=== PATIENT | male | born 1960 | race Caucasian/White ===

== ENCOUNTER → 2017-09-10 11:01 | Outpatient (POV) | payer MEDICARE, SELFPAY ==
[2017-09-10 11:31] VITALS: BP 125/78; PULSE 66; RESP 18; O2SAT 98
--- NOTE | 2017-09-10 11:49 | HMH.PMCON ---
Assessment and Plan (1) Sacroiliitis Current visit: Yes Status: Chronic Category: Medical Code(s): M46.1 - Sacroiliitis, not elsewhere classified - Assessment and plan all Dx Assessment and Plan for all problems:: We will plan bilateral SI joint injections for this patient. Patient has had 80% relief for the 6 months with his previous injections. Patient's tried and failed physical therapy, anti-inflammatories, medications. I will follow-up with this patient after his injection and we will reassess his symptoms at that time. This note was dictated using voice recognition software and may contain errors or omissions HPI - Data of Consult Consult date: 09/10/17 Requesting Physician: Belkis Montano APRN Primary Care Provider: Garo Avelar MD Family Provider: Garo Avelar MD - Consult Narrative Reason for consult: Bilateral SI joint pain History of present illness: Mr. Montgomery is a 57 year old male presents today for consultation in regards to his bilateral SI joint pain. Patient has been receiving SI joint injections with significant relief in the past. Patient recently moved here from [place]. In his last injection he got 80-90% relief of his symptoms for 6 months. Patient rates his pain a 5 out of 10 today. Patient is currently on anti-inflammatory therapy. Patient has tried and failed chiropractic therapy, physical therapy, massage therapy. Patient does have some difficulty sleeping due to pain. Patient is not on any anticoagulation therapy. Patient is interested in moving forward with injective therapy to increase his functionality. CC: Belkis Montano APRN [facility] History I have reviewed the patient's past medical history: Yes Medical History: Reports:: Myocardial Infarction Denies:: Diabetes Mellitus Type 1, Diabetes Mellitus Type 2 Other Medical History: Reports: Arthritis - *Social History Alcohol Intake: never Occupational Status: other Housing: house - Psychiatric History Expresses thoughts of harming self/others: None Suicide Plan Description: No Plan *Family Hx:: Unable to obtain Review of Systems - Review of Systems ROS General: no recent weight change, no fever, no sleep disturbances Respiratory: no cough, no shortness of air, no recurring pulmonary infections Cardiovascular/Peripheral Vascular: No chest pain, No palpitations, no edema, no shortness of breath. Gastrointestinal: no incontinence, normal bowel movements reported Genitourinary: no incontinence Musculoskeletal: Bilateral SI joint pain Psychiatric: normal mood/ affect Neurological: Weakness in bilateral lower extremities at times, [denies balance issues] Meds Home Medications Medication Instructions Recorded Confirmed Type apixaban 5 mg tablet 5 mg PO BID 09/09/17 History aspirin 81 mg tablet,delayed 81 mg PO DAILY tab 09/09/17 History release carvedilol 6.25 mg tablet 6.25 mg PO BID 09/09/17 History celecoxib 200 mg capsule 200 mg PO BID 09/09/17 History colchicine 0.6 mg tablet 0.6 mg PO BID 09/09/17 History lisinopril 20 1 tab PO BID tab 09/09/17 History mg-hydrochlorothiazide 12.5 mg tablet pantoprazole 40 mg tablet,delayed 40 mg PO DAILY tab 09/09/17 History release rosuvastatin 20 mg tablet 20 mg PO DAILY tab 09/09/17 History tramadol 50 mg tablet 50 mg PO TID PRN tab 09/09/17 History Allergies Allergy/AdvReac Type Severity Reaction Status Date / Time acetaminophen [From Tylenol] Allergy Mild Verified 09/09/17 14:31 Objective Vital signs: Pulse Resp BP Pulse Ox 66 18 125/78 98 09/10/17 11:31 09/10/17 11:31 09/10/17 11:31 09/10/17 11:31 Narrative: Physical Exam General: Alert and oriented x3, no acute distress, pleasant and cooperative, [on room air] Lungs: Resps E/U, Symmetrical chest expansion, Eyes: PERRL Musculoskeletal: Flexion and extension of lumbar spine somewhat guarded secondary to pain, de
--- NOTE | 2017-09-10 11:52 | P.CONS_ITS ---
Assessment and Plan (1) Sacroiliitis Current visit: Yes Status: Chronic Category: Medical Code(s): M46.1 - Sacroiliitis, not elsewhere classified - Assessment and plan all Dx Assessment and Plan for all problems:: We will plan bilateral SI joint injections for this patient. Patient has had 80 % relief for the 6 months with his previous injections. Patient's tried and failed physical therapy, anti-inflammatories, medications. I will follow-up with this patient after his injection and we will reassess his symptoms at that time. This note was dictated using voice recognition software and may contain errors or omissions HPI - Data of Consult Consult date: 09/10/17 Requesting Physician: Belkis Montano APRN Primary Care Provider: Garo Avelar MD Family Provider: Garo Avelar MD - Consult Narrative Reason for consult: Bilateral SI joint pain History of present illness: Mr. Montgomery is a 57 year old male presents today for consultation in regards to his bilateral SI joint pain. Patient has been receiving SI joint injections with significant relief in the past. Patient recently moved here from [place]. In his last injection he got 80-90% relief of his symptoms for 6 months. Patient rates his pain a 5 out of 10 today. Patient is currently on anti- inflammatory therapy. Patient has tried and failed chiropractic therapy, physical therapy, massage therapy. Patient does have some difficulty sleeping due to pain. Patient is not on any anticoagulation therapy. Patient is interested in moving forward with injective therapy to increase his functionality. CC: Belkis Montano APRN [facility] History I have reviewed the patient's past medical history: Yes Medical History: Reports:: Myocardial Infarction Denies:: Diabetes Mellitus Type 1, Diabetes Mellitus Type 2 Other Medical History: Reports: Arthritis - *Social History Alcohol Intake: never Occupational Status: other Housing: house - Psychiatric History Expresses thoughts of harming self/others: None Suicide Plan Description: No Plan *Family Hx:: Unable to obtain Review of Systems - Review of Systems ROS General: no recent weight change, no fever, no sleep disturbances Respiratory: no cough, no shortness of air, no recurring pulmonary infections Cardiovascular/Peripheral Vascular: No chest pain, No palpitations, no edema, no shortness of breath. Gastrointestinal: no incontinence, normal bowel movements reported Genitourinary: no incontinence Musculoskeletal: Bilateral SI joint pain Psychiatric: normal mood/ affect Neurological: Weakness in bilateral lower extremities at times, [denies balance issues] Meds Home Medications Medication Instructions Recorded Confirmed Type apixaban 5 mg tablet 5 mg PO BID 09/09/17 History aspirin 81 mg tablet,delayed 81 mg PO DAILY tab 09/09/17 History release carvedilol 6.25 mg tablet 6.25 mg PO BID 09/09/17 History celecoxib 200 mg capsule 200 mg PO BID 09/09/17 History colchicine 0.6 mg tablet 0.6 mg PO BID 09/09/17 History lisinopril 20 1 tab PO BID tab 09/09/17 History mg-hydrochlorothiazide 12.5 mg tablet pantoprazole 40 mg tablet,delayed 40 mg PO DAILY tab 09/09/17 History release rosuvastatin 20 mg tablet 20 mg PO DAILY tab 09/09/17 History tramadol 50 mg tablet 50 mg PO TID PRN tab 09/09/17 History Allergies
== END ==
PROVIDERS: PCP Internal Medicine Adolescent Medicine; Visit Provider Clinical Nurse Specialist Family Health
DX: M46.1 Sacroiliitis, not elsewhere classified (principal)
CPT/HCPCS: 99202

== ENCOUNTER → 2017-11-11 12:49 | Outpatient (POV) | payer MEDICARE, SELFPAY ==
[2017-11-11 12:58] VITALS: BP 144/93; PULSE 63; RESP 18; O2SAT 98; BMI 35.9
--- NOTE | 2017-11-12 11:45 | HMH.PAINSOAP ---
[facility] Pain Management SOAP Note Subjective:: This patient is a pleasant 57-year-old white male who presents today for follow-up after bilateral SI joint injections. Patient states he did not get much relief from this. Patient has been seen by pain management in [place] in the past and had what sounds like an SI joint injection however he is unsure what it was called. Patient states he had 5 months relief with this. I have been trying to get information in regards to the patient's plan of care treatment in [place] however have been unable to receive the records. We will try to do this again. Patient rates his pain a 6 out of 10 today mostly in his low back and over his SI joints. ROS General: no recent weight change, no fever, no sleep disturbances Respiratory: no cough, no shortness of air, no recurring pulmonary infections Cardiovascular/Peripheral Vascular: No chest pain, No palpitations, no edema, no shortness of breath. Gastrointestinal: no incontinence, normal bowel movements reported Genitourinary: no incontinence Musculoskeletal: SI joint pain Psychiatric: normal mood/ affect Neurological: [denies weakness in extremities], [denies balance issues] Objective:: Physical Exam General: Alert and oriented x3, no acute distress, pleasant and cooperative, [on room air] Lungs: Resps E/U, Symmetrical chest expansion, Eyes: PERRL Musculoskeletal: Flexion and extension of lumbar spine somewhat guarded secondary to pain, deep tendon reflexes normal, strength in upper and lower extremities [5/5], slightly antalgic gait noted, positive Rachele's test bilaterally, SI joint tenderness bilaterally Neurological: speech clear, ssis etl developer equal, no gross sensory deficits Assessment:: Sacroiliitis Plan:: We will try again to obtain the records from his previous clinic. We will determine what kind of procedure he had prior and we will order this for him. I will follow-up with the patient once we get these records. This note was dictated using voice recognition software and may contain errors or omissions
== END ==
PROVIDERS: PCP Internal Medicine Adolescent Medicine; Visit Provider Clinical Nurse Specialist Family Health
DX: M46.1 Sacroiliitis, not elsewhere classified (principal)
CPT/HCPCS: 99212

== ENCOUNTER → 2017-12-16 13:52 | Outpatient (CLI) | payer MEDICARE, SELFPAY ==
[2017-12-16 14:23] LABS: Blood Urea Nitrogen 20 mg/dL (7-18); Creatinine,Serum 1.33 mg/dL (0.70-1.30); Estimated Glomerular Filt Rate 55 ml/min (>60); GFR (African American) 67 ML/MIN (>60)
--- NOTE | 2017-12-16 14:28 | CT_ITS ---
CT abdomen pelvis w con INDICATION: Abdominal pain ITS.REASON: DIVERTICULITIS ORDERING PHYSICIAN: Ryan Meraz MD PATIENT AGE: 57 years COMPARISON: CT abdomen pelvis 10/02/2017 . TECHNIQUE: 75 cc of Isovue-370 intravenous given. But no oral contrast. Axial images obtained with sagittal and coronal reformats. All CT scans at the facility use one or more dose reduction, viz: automated exposure control, ma/kV adjustment per patient size (including targeted exams where dose is matched to indication, i.e. head), or iterative reconstruction technique. FINDINGS: Lung bases. No active disease. Stable tiny less than 3 mm pleural-based nodule at the left lower lobe axial slice 11. Question partially and suspect for tiny developing granuloma. Favor benign. Liver, spleen, pancreas unremarkable. Gallbladder is been removed. No biliary ductal dilatation. .. Adrenals normal. Kidneys. Mild stranding about both kidneys similar to previous study. Reflecting mild chronic changes. No renal calculi or obstruction. Ureters normal course and caliber with the left ureter is slightly more generous than the right. Pelvis. Urinary bladder unremarkable. Prostate modest size. No pelvic adenopathy or mass. GI tract. Minimal Diverticulosis is seen at the sigmoid and left colon.. No diverticulitis. Moderate stool at transverse colon & right colon. Terminal ileum appears normal. Only a small stump of appendix evident. No appendicitis. No free fluid in the abdomen or pelvis. No free air. Small bowel normal caliber. Stomach upper normal wall thickness. Here and at GE junction, lower esophagus. T IMPRESSION.......... No acute findings in the abdomen or pelvis No urinary tract structures are calculi. Minimal diverticulosis at the sigmoid and left colon but no good evidence of diverticulitis....
== END ==
PROVIDERS: PCP Internal Medicine Adolescent Medicine; Visit Provider Internal Medicine Adolescent Medicine
DX: K57.92 Diverticulitis of intestine, part unspecified, without perforation or abscess without bleeding (principal)
CPT/HCPCS: 36415; 74177; 82565; 84520; Q9967

== ENCOUNTER → 2017-12-23 09:26 | Outpatient (CLI) | payer MEDICARE, SELFPAY ==
--- NOTE | 2017-12-23 09:31 | MR_ITS ---
MR lumbar spine wo con, MR 3-d myelogram HISTORY: Low Back Pain, Bilateral Hip Pain, Bilateral leg numbness and tingling. PT States he feels unstable in legs. ITS.REASON: ACUTE BILATERAL LOW BACK PAIN, WITH SCIATICA PRESENCE ORDERING PHYSICIAN: Ryan Meraz MD PATIENT AGE: 57 years Comparison: None TECHNIQUE: Standard multiplanar multiecho sequences are performed without contrast. 3-D MIP and myelographic images are also rendered and reviewed FINDINGS: There is normal alignment. The spinal cord ends at the T12-L1 level. T11-T12: Mild degenerative disc disease. T12-L1, L1-L2, and L2-L3 have an unremarkable appearance. L3-L4: Mild facet and ligamentum flavum hypertrophic change L4-5: Mild concentric bulging disc with facet and ligamentum flavum hypertrophy with mild bilateral lateral recess and foraminal narrowing. The lateral recess narrowing slightly greater on the right due to some mild hypertrophic change of the facet at this region. This abuts the right L5 nerve root L5-S1: Minimal bulging disc along with facet and ligamentum flavum hypertrophic change with mild bilateral foraminal narrowing. No disc herniation or canal stenosis. Small cyst involving the right kidney at 1.5 cm IMPRESSION: 1. No extruded herniated disc or canal stenosis. 2. L4-5: Mild concentric bulging disc with facet and ligamentum flavum hypertrophy with mild bilateral lateral recess and foraminal narrowing. The lateral recess narrowing slightly greater on the right due to some mild hypertrophic change of the facet at this region. This abuts the right L5 nerve root 3. L5-S1: Minimal bulging disc along with facet and ligamentum flavum hypertrophic change with mild bilateral foraminal narrowing
== END ==
PROVIDERS: PCP Internal Medicine Adolescent Medicine; Visit Provider Internal Medicine Adolescent Medicine
DX: M54.5 Low back pain (principal)
CPT/HCPCS: 72148; 76376

== ENCOUNTER 2018-01-14 14:00 | Outpatient (RCR) | payer MEDICARE, SELFPAY | END 2018-01-14 16:00 | disposition home or self-care (01) | LOC: PT 14:00 | PROVIDERS: PCP Internal Medicine Adolescent Medicine; Visit Provider Internal Medicine Adolescent Medicine | DX: M54.5 Low back pain (principal) | CPT/HCPCS: 97110; 97163 ==

== ENCOUNTER → 2018-03-12 14:01 | Outpatient (CLI) | payer MEDICARE, SELFPAY ==
[2018-03-12 14:21] LABS: Basophils # 0.1 K/mm3 (0-0.2); Basophils % 1.2 % (0.1-2.0); Eosinophils # 0.2 K/mm3 (0.0-0.4); Eosinophils % 3.2 % (0.1-12.0); Hematocrit 44.7 % (42.0-52.0); Hemoglobin 14.7 g/dL (14.1-18.0); Lymphocytes # 1.1 K/mm3 (0.7-4.5); Mean Corpuscular HGB Conc 32.8 g/dL (31.8-35.4); Mean Corpuscular Hemoglobin 29.6 pg (27.0-31.2); Mean Corpuscular Volume 90.4 fl (80-94); Mean Platelet Volume 7.1 fl (7.4-10.4); Monocytes # 0.3 K/mm3 (0.1-1.0); Monocytes % 5.8 % (1.7-9.3); Neutrophils # 3.7 K/mm3 (1.8-7.8); Neutrophils % 69.8 % (37.0-80.0); Platelet Count 254 K/mm3 (142-424); Red Blood Count 4.95 M/mm3 (4.60-6.20); Red Cell Distribution Width 13.7 % (11.5-17.5); White Blood Count 5.3 K/mm3 (4.8-10.8)
[2018-03-12 16:07] LABS: Alanine Aminotransferase 29 U/L (12-78); Albumin Level 3.8 gm/dL (3.4-5.0); Albumin/Globulin Ratio 1.2 (1.1-1.8); Alkaline Phosphatase 59 U/L (46-116); Amylase 38 U/L (25-115); Aspartate Amino Transferase 20 U/L (15-37); Bilirubin,Total 0.6 mg/dL (0.2-1.0); Blood Urea Nitrogen 16 mg/dL (7-18); Calcium 9.5 mg/dL (8.5-10.1); Carbon Dioxide 30 mmol/L (21.0-32.0); Chloride 112 mmol/L (98-107); Creatinine,Serum 1.12 mg/dL (0.70-1.30); Estimated Glomerular Filt Rate 67 ml/min (>60); GFR (African American) 81 ML/MIN (>60); Globulin 3.1 gm/dl (1.3-3.2); Glucose 84 mg/dL (74-106); Lipase 106 u/L (73-393); Sodium 135 mmol/L (136-145); Total Protein,Serum 6.9 gm/dL (6.4-8.2)
== END ==
PROVIDERS: Visit Provider Surgery
DX: R10.12 Left upper quadrant pain (principal); M46.1 Sacroiliitis, not elsewhere classified
CPT/HCPCS: 36415; 80053; 82150; 83690; 85025

== ENCOUNTER 2018-03-16 02:57 | Observation (INO) ==
--- NOTE | 2018-03-16 03:03 | Emergency Department Note ---
ED Disposition Clinical Impression: Rapid atrial fibrillation, Precordial chest pain Disposition: Still a Patient Condition on Discharge: Fair Referrals: Provider,Referral, MD [Primary Care Provider] - - Critical Care Critical Care Time: Yes Attestation: On , the high probability of a clinically significant, sudden or life threatening deterioration of the following system(s) required my full and direct attention, intervention and personal management. The time I documented below is in addition to time spent performing reported procedures but includes the following listed in this critical care notation. Total Critical Care Time: 30 Vital system(s) involved:: Circulatory Failure My critical care processes included: Assessment & monitoring of V/S, Initial and Re-exams, Data Review/Interpretation, Coordinating Care, Medication Orders and management, Documentation Medical Decision Making - [place] Inquiry Pt receiving controlled substance: No Vital Signs: 03/16/18 02:57 03/16/18 03:21 03/16/18 03:54 Temperature 98.5 F Temperature Source Oral Pulse Rate [Right Radial] 51 L 157 H 112 H Respiratory Rate 16 18 18 Blood Pressure [Right Arm] 139/71 142/73 H 104/69 L Blood Pressure Mean [Right Arm] 93 96 80 Blood Pressure Source [Right Arm] Automatic Cuff Automatic Cuff Automatic Cuff Blood Pressure Position [Right Arm] Sitting Sitting Sitting 02 Sat by Pulse Oximetry 97 96 95 Oxygen Delivery Method Room Air Room Air Room Air - Lab Data Lab Results 03/16/18 03:05: WBC 6.2, RBC 4.83, Hgb 14.6, Hct 43.5, MCV 90.1, MCH 30.3, MCHC 33.6, RDW 13.8, Plt Count 264, MPV 7.0 L, Neut % (Auto) 52.1, Lymph % (Auto) 33.9, [place] % (Auto) 8.6, Eos % (Auto) 4.0, Baso % (Auto) 1.5, Neut # (Auto) 3.2, Lymph # (Auto) 2.1, [place] # (Auto) 0.5, Eos # (Auto) 0.3, Baso # (Auto) 0.1 03/16/18 03:05: Sodium 142, Potassium 3.6, Chloride 104, Carbon Dioxide 29, Anion Gap 12.6, BUN 16, Creatinine 1.32 H, Estimated Creat Clear 102, Estimated GFR 56 L, Est GFR ( Amer) 67, Glucose 101, Calcium 8.9, Troponin I < 0.02 Result diagrams: 03/16/18 03:05 03/16/18 03:05 Orders (Tests/Meds): ED MEDICATIONS Generic Name Dose Route Start Last Admin Trade Name Freq PRN Reason Stop Dose Admin Diltiazem HCl 100 mg/ Sodium 100 mls @ 5 mls/hr 03/16/18 03:39 03/16/18 03:44 Chloride IV 04/15/18 03:38 5 mls/hr .Q20H ANA Administration Protocol Discontinued Medications Generic Name Dose Route Start Last Admin Trade Name Freq PRN Reason Stop Dose Admin Diltiazem HCl 10 mg 03/16/18 03:24 03/16/18 03:44 Cardizem 25mg/5ml Vial IV 03/16/18 03:25 10 mg ONCE ONE Administration ORDERS Category Date Time Status XR chest 2V Stat Exams 03/16/18 03:03 Taken ECG Request by /Nse Stat Y 03/16/18 03:03 Ordered - Radiology Data #1 Image(s): Chest Image Reviewed: Yes I reviewed the patient's radiology image Scar versus atelectasis left base, no change from prior, no acute disease - ECG Data Tracing #1 EKG interpreted by Brodie Fletcher MD: Rhythm: Atrial fibrillation with rapid ventricular response Rate: 141 [place]: Left Ectopy: none Conduction: normal ST Segment Changes: none T Wave Changes: Nonspecific Q Waves: none Poor R wave progression Atrial fibrillation is new since 10/02/17 - Physician Consults Physician Consulted: Fer Meraz Time: 04:07 Reason -: Admission Comment/Response: Agrees to admit the patient to the hospital. We discussed the patient's clinical information, including history, exam, laboratory and radiology results and ED course. Per hospital procedure, I will write temporary bridge inpatient orders on the patient. Specific orders requested by the admitting physician: Continue Cardizem drip, serial cardiac enzymes. Defer cardiology consultation until he sees patient. Medical Decision Narrative: Spontaneously in and out of atrial fibrillation and sinus rhythm in the emergency department. General Adult HPI - General Stated complaint: chest pain Time Seen by Provider: 03/16/18 03:24 - History of Present Illness HPI narrative: Patient states he was awakened tonight by sharp pain in his right parasternal area and a feeling like his heart was beating out of his chest. Prior history of A. fib years ago after myocardial infarction. Previously on amiodarone but that was stopped earlier this year. Recently started on Xarelto by Dr. Puga. Denies shortness of breath, nausea, diaphoresis. Given nitroglycerin and aspirin during ambulance transport, did not change his symptoms much. - Related Data Home Medications Medication Instructions Recorded Confirmed colchicine 0.6 mg tablet 0.6 mg PO BID 09/09/17 03/16/18 pantoprazole 40 mg tablet,delayed 40 mg PO DAILY tab 09/09/17 03/16/18 release Lisinopril/Hydrochlorothiazide 1 tab PO DAILY 10/02/17 03/16/18 [Lisinopril-Hctz 20-12.5 mg Tab] Rivaroxaban [Xarelto 20mg Tablet] 20 mg PO PM 10/02/17 03/16/18 clonazePAM [Klonopin 0.5mg tablet] 0.5 mg PO NEEDED PRN 10/02/17 03/16/18 Nebivolol HCl [Bystolic] 5 mg PO DAILY 01/05/18 03/16/18 Rosuvastatin Calcium [Crestor] 20 mg PO DAILY 01/05/18 03/16/18 raNITIdine HCl [Ranitidine HCl] 150 mg PO DAILY 03/16/18 03/16/18 Allergies Allergy/AdvReac Type Severity Reaction Status Date / Time acetaminophen [From Tylenol] Allergy Mild itching Verified 03/16/18 03:02 [facility] History I have reviewed the patient's past medical history: Yes Medical History: Reports:: Hypertension, Myocardial Infarction Denies:: Cancer, Diabetes Mellitus Type 1, Diabetes Mellitus Type 2, MRSA, Seizures Other Medical History: Reports: Arthritis. Denies: Blood Transfusion Reaction Other Surgeries: Yes: Appendectomy, Cholecystectomy, Colonoscopy, EGD, Other Amputation: No Fractures: No - Social History Smoking Status: Never smoker Alcohol Intake: never Substance Use Type: denies use Occupational Status: disabled, other Housing: house Household Members: none Family Hx:: Stroke, Heart Attack ROS Obtained: Yes All systems reviewed & no additional complaints - Constitutional Constitutional: Denies fever(s) - Cardiovascular Cardiovascular: Reports chest pain, Denies diaphoresis, Reports rapid heart rate - Respiratory Respiratory: No cough, No dyspnea - Gastrointestinal Gastrointestingal: Denies: nausea, vomiting Physical Exam - General General appearance: alert, in no apparent distress - Head Head exam: atraumatic, normocephalic - Eye Eye exam: Present: normal appearance, PERRL, EOMI - ENT ENT exam: Present: mucous membranes moist - Neck Neck exam: Present: normal inspection, trachea midline - Chest Chest inspection: Present: normal inspection, symmetric chest wall rise - Respiratory Respiratory exam: Present: normal lung sounds bilaterally. Absent: respiratory distress - Cardiovascular Cardiovascular exam: Present: tachycardia, irregular rhythm, normal heart sounds - Abdominal Exam Abdominal exam: Present: soft. Absent: distention, tenderness - Extremities Exam Extremities exam: Present: normal inspection, other (Normal peripheral pulses) - Neurological Exam Neurological exam: Present: alert, oriented X3 - Psychiatric Psychiatric exam: Present: normal affect, normal mood - Skin Skin exam: Present: warm, dry
[2018-03-16 03:14] LABS: Basophils # 0.1 K/mm3 (0-0.2); Basophils % 1.5 % (0.1-2.0); Eosinophils # 0.3 K/mm3 (0.0-0.4); Hematocrit 43.5 % (42.0-52.0); Hemoglobin 14.6 g/dL (14.1-18.0); Lymphocytes # 2.1 K/mm3 (0.7-4.5); Lymphocytes % 33.9 % (10-50); Mean Corpuscular HGB Conc 33.6 g/dL (31.8-35.4); Mean Corpuscular Hemoglobin 30.3 pg (27.0-31.2); Mean Corpuscular Volume 90.1 fl (80-94); Monocytes # 0.5 K/mm3 (0.1-1.0); Monocytes % 8.6 % (1.7-9.3); Neutrophils # 3.2 K/mm3 (1.8-7.8); Neutrophils % 52.1 % (37.0-80.0); Platelet Count 264 K/mm3 (142-424); Red Blood Count 4.83 M/mm3 (4.60-6.20); Red Cell Distribution Width 13.8 % (11.5-17.5); White Blood Count 6.2 K/mm3 (4.8-10.8)
[2018-03-16 03:45] LABS: Anion Gap 12.6 mEq/L (5-15); Blood Urea Nitrogen 16 mg/dL (7-18); Calcium 8.9 mg/dL (8.5-10.1); Carbon Dioxide 29 mmol/L (21.0-32.0); Chloride 104 mmol/L (98-107); Glucose 101 mg/dL (74-106); Potassium 3.6 mmoL/L (3.5-5.1); Sodium 142 mmol/L (136-145)
--- NOTE | 2018-03-16 07:59 | History & Physical Report ---
*Admission Date: 03/16/18 *Chief complaint: Palpitations *History of present illness: 58-year-old male with history of AR in 2016 and subsequent cardiomyopathy as well as atrial fibrillation presented to the emergency department after he awoke at approximately 2 AM with his heart racing. He recognized his heart racing as his atrial fibrillation which he has not had problems with in over a year. Patient presented to the emergency department. In the emergency department he was found to be in atrial fibrillation with a ventricular rate of 160 bpm. Patient was started on a Cardizem drip and would alternate between A. fib with RVR and sinus rhythm. Patient takes Xarelto and Bystolic at home. Decision was made to admit the patient on Cardizem drip to this down unit. At around 6 AM patient converted to sinus rhythm and has maintained sinus rhythm for at least the last 2 hours. He denies chest pain or chest tightness. Troponins have been negative so far. He denies any change in his baseline state of health over the last 1-2 weeks. He has seen local cardiology in August. His last known ejection fraction was around 60%. [facility] History I have reviewed the patient's past medical history: Yes Medical History: Reports:: Arrhythmia, Atrial Fibrillation, Cardiomyopathy, Hypertension, Myocardial Infarction Denies:: Cancer, Diabetes Mellitus Type 1, Diabetes Mellitus Type 2, MRSA, Seizures Other Medical History: Reports: Arthritis, Fibromyalgia. Denies: Blood Transfusion Reaction Comment: Gout Other Surgeries: Yes: Appendectomy, Cholecystectomy, Colonoscopy, EGD, Other Amputation: No Fractures: No - *Social History Educational Level: Attended College Smoking Status: Never smoker Alcohol Intake: current Alcohol Intake Frequency:: holidays/special occasions only Substance Use Type: denies use Occupational Status: disabled, other Housing: house Household Members: none - Psychiatric History Expresses thoughts of harming self/others: None Suicide Plan Description: No Plan *Family Hx:: Stroke, Heart Attack Review of Systems - Review of Systems Review of systems:: pertinent systems reviewed and negative unless documented below - Constitutional Denies body ache(s), Denies chills - *Cardiovascular Reports irregular heart rhythm, Denies chest pain - *Respiratory Denies chest congestion, Denies cough - *Gastrointestinal Denies abdominal pain, Denies bloating, Denies change in bowel habits - *Genitourinary Denies difficulty urinating - *Neurologic Denies abnormal walking Meds Home Medications Medication Instructions Recorded Confirmed Type colchicine 0.6 mg tablet 0.6 mg PO DAILY 09/09/17 03/16/18 History pantoprazole 40 mg tablet,delayed 40 mg PO DAILY tab 09/09/17 03/16/18 History release Lisinopril/Hydrochlorothiazide 1 tab PO DAILY 10/02/17 03/16/18 History [Lisinopril-Hctz 20-12.5 mg Tab] Rivaroxaban [Xarelto 20mg Tablet] 20 mg PO PM 10/02/17 03/16/18 History clonazePAM [Klonopin 0.5mg tablet] 0.5 mg PO NEEDED PRN 10/02/17 03/16/18 History Nebivolol HCl [Bystolic] 5 mg PO DAILY 01/05/18 03/16/18 History Rosuvastatin Calcium [Crestor] 20 mg PO DAILY 01/05/18 03/16/18 History Dicyclomine HCl [Bentyl 10mg 10 mg PO NEEDED PRN 03/16/18 03/16/18 History capsule] Tramadol HCl [Ultram 50mg 50 mg PO NEEDED PRN 03/16/18 03/16/18 History tablet] raNITIdine HCl [Ranitidine HCl] 150 mg PO DAILY 03/16/18 03/16/18 History Allergies Allergy/AdvReac Type Severity Reaction Status Date / Time acetaminophen [From Tylenol] Allergy Mild itching Verified 03/16/18 03:02 Exam Vital signs and Labs for Last 24 Hours: Temp Pulse Resp BP Pulse Ox 97.8 F 63 19 107/68 L 96 03/16/18 04:49 03/16/18 06:00 03/16/18 06:00 03/16/18 06:00 03/16/18 06:00 Laboratory Results - last 24 hr 03/16/18 03:05: WBC 6.2, RBC 4.83, Hgb 14.6, Hct 43.5, MCV 90.1, MCH 30.3, MCHC 33.6, RDW 13.8, Plt Count 264, MPV 7.0 L, Neut % (Auto) 52.1, Lymph % (Auto) 33.9, [place] % (Auto) 8.6, Eos % (Auto) 4.0, Baso % (Auto) 1.5, Neut # (Auto) 3.2, Lymph # (Auto) 2.1, [place] # (Auto) 0.5, Eos # (Auto) 0.3, Baso # (Auto) 0.1 03/16/18 03:05: Sodium 142, Potassium 3.6, Chloride 104, Carbon Dioxide 29, Anion Gap 12.6, BUN 16, Creatinine 1.32 H, Estimated Creat Clear 102, Estimated GFR 56 L, Est GFR ( Amer) 67, Glucose 101, Calcium 8.9, Troponin I < 0.02 I & O for Last 24 hours: Intake & Output 03/13/18 03/14/18 03/15/18 03/16/18 11:59 11:59 11:59 11:59 Weight 265 lb 2 oz - Constitutional no acute distress - *Routine HEENT Exam Head: Present: normocephalic Eye: Present: PERRL ENT: Present: mucous membranes moist - *Routine Neck Exam Absent: JVD, carotid bruit - *Routine Respiratory Exam Present: CTA bilaterally - *Routine Cardiovascular Exam Present: RRR, Normal S1, Normal S2 - *Routine Abdominal Exam Present: soft. Absent: tenderness - *Routine Extremities Exam Present: full ROM. Absent: edema - *Routine Neurological Exam Present: oriented X3. Absent: sensory deficit, motor deficit Assessment and Plan (1) History of cardiomyopathy in adulthood Current visit: Yes Status: Acute Category: Medical Code(s): Z86.79 - Personal history of other diseases of the circulatory system (2) Rapid atrial fibrillation Current visit: Yes Status: Acute Category: Medical Code(s): I48.91 - Unspecified atrial fibrillation (3) Atherosclerotic heart disease of [place] coronary artery without angina pectoris Current visit: No Status: Acute Category: Medical Code(s): I25.10 - Atherosclerotic heart disease of [place] coronary artery without angina pectoris (4) Hyperlipidemia Current visit: No Status: Acute Category: Medical Code(s): E78.5 - Hyperlipidemia, unspecified - Assessment and plan all Dx Assessment and Plan for all problems:: 1. Check TSH 2. Patient will be given his by systolic and started on amiodarone 400 mg twice daily as a loading dose. Echocardiogram will be ordered for the morning. 3. Await serial troponins to rule out AR
--- NOTE | 2018-03-16 11:41 | Pharmacy Consult Notes ---
[facility] Pharmacy VTE Monitoring - Patient Demographics Admission date: 03/15/18 Report Date: 03/16/18 Time: 11:41 Allergies/Adverse Reactions: Patient Allergies acetaminophen [From Tylenol] Allergy (Mild, Verified 03/16/18 03:02) itching Height: 1.83 m Weight: 120.259 kg Patient Problems: Current Active Problems Rapid atrial fibrillation (Acute) Precordial chest pain (Acute) History of cardiomyopathy in adulthood (Acute) - VTE Risk Labs: VTE Related Lab Results Hgb 14.6 g/dL (14.1-18.0) 03/16/18 03:05 Hct 43.5 % (42.0-52.0) 03/16/18 03:05 Plt Count 264 K/mm3 (142-424) 03/16/18 03:05 BUN 16 mg/dL (7-18) 03/16/18 03:05 Creatinine 1.32 mg/dL (0.70-1.30) H 03/16/18 03:05 Estimated Creat Clear 102 mL/min (50-200) 03/16/18 03:05 Was VTE Risk Assessment Performed: Yes VTE Score: 4 VTE Risk Level: Low Risk - Prophylaxis VTE Prophylaxis Ordered?: Yes Types of VTE Prophylaxis: Pharmacological Pharmacologic Type: Other (XARELTO) - VTE Diagnosis Confirmed Treatment or plan recommended: Continue Current Treatment
--- NOTE | 2018-03-17 08:47 | Progress Note ---
Internal Medicine - PN: Subj *Date: 03/17/18 *Time: 08:46 Interval history: Patient feels good, he blames his atrial fibrillation on eating a hot dog that gave him some dyspepsia. Exam Vital signs and Labs for Last 24 Hours: Temp Pulse Resp BP Pulse Ox 97.1 F L 73 18 131/57 L 95 03/17/18 08:00 03/17/18 08:00 03/17/18 08:00 03/17/18 08:00 03/17/18 08:00 Laboratory Results - last 24 hr 03/16/18 10:19: Troponin I < 0.02 I & O for Last 24 hours: Intake & Output 03/14/18 03/15/18 03/16/18 03/17/18 11:59 11:59 11:59 11:59 Intake Total 240 / 240 616 / 616 Balance 240 / 240 616 / 616 Weight 265 lb 2 oz - Constitutional no acute distress - *Routine HEENT Exam Head: Present: normocephalic, atraumatic Eye: Present: EOMI, PERRL. Absent: conjunctival icterus - *Routine Neck Exam Present: supple, full ROM. Absent: JVD - *Routine Respiratory Exam Present: CTA bilaterally. Absent: accessory muscle use, prolonged expiratory phase - *Routine Cardiovascular Exam Present: RRR, Normal S1, Normal S2. Absent: murmur - *Routine Abdominal Exam Present: soft, normoactive bowel sounds. Absent: tenderness - *Routine Extremities Exam Absent: cyanosis, clubbing, edema Assessment and Plan (1) History of cardiomyopathy in adulthood Current visit: Yes Status: Acute Category: Medical Code(s): Z86.79 - Personal history of other diseases of the circulatory system (2) Rapid atrial fibrillation Current visit: Yes Status: Acute Category: Medical Code(s): I48.91 - Unspecified atrial fibrillation (3) Atherosclerotic heart disease of [place] coronary artery without angina pectoris Current visit: No Status: Acute Category: Medical Code(s): I25.10 - Atherosclerotic heart disease of [place] coronary artery without angina pectoris (4) Hyperlipidemia Current visit: No Status: Acute Category: Medical Code(s): E78.5 - Hyperlipidemia, unspecified - Assessment and plan all Dx Assessment and Plan for all problems:: Currently in sinus rhythm. Cardiology evaluation. Anticipate discharge today. Discussed dietary issues affecting atrial fibrillation.
--- NOTE | 2018-03-17 09:54 | Discharge Summary ---
General - General Admission date:: 03/16/18 Discharge date: 03/17/18 HPI HPI: 58-year-old male with history of HI in 2016 and subsequent cardiomyopathy as well as atrial fibrillation presented to the emergency department after he awoke at approximately 2 AM with his heart racing. He recognized his heart racing as his atrial fibrillation which he has not had problems with in over a year. Patient presented to the emergency department. In the emergency department he was found to be in atrial fibrillation with a ventricular rate of 160 bpm. Patient was started on a Cardizem drip and would alternate between A. fib with RVR and sinus rhythm. Patient takes Xarelto and Bystolic at home. Decision was made to admit the patient on Cardizem drip to this down unit. At around 6 AM patient converted to sinus rhythm and has maintained sinus rhythm for at least the last 2 hours. He denies chest pain or chest tightness. Troponins have been negative so far. He denies any change in his baseline state of health over the last 1-2 weeks. He has seen local cardiology in August. His last known ejection fraction was around 60%. Hospital Course Hospital Course: Patient was admitted... ruled out for HI and cardizem gtt restored sinus rhythm. [place] well this AM. Cardiology consult recommended no med changes. Will be discharged to home with f/u in one week per cardiology. Objective Vital signs: Temp Pulse Resp BP Pulse Ox 97.1 F L 73 18 131/57 L 95 03/17/18 08:00 03/17/18 08:00 03/17/18 08:00 03/17/18 08:00 03/17/18 08:00 no acute distress, average body habitus - *Routine HEENT Exam Head: Present: normocephalic, atraumatic Eye: Present: EOMI ENT: Present: mucous membranes moist - *Routine Neck Exam Present: supple, full ROM. Absent: JVD - *Routine Respiratory Exam Present: CTA bilaterally. Absent: accessory muscle use - *Routine Cardiovascular Exam Present: RRR, Normal S1, Normal S2, murmur - *Routine Abdominal Exam Present: soft, normoactive bowel sounds, guarding - *Routine Extremities Exam Present: cyanosis, clubbing, full ROM - *Routine Neurological Exam Present: alert, oriented X3, CN II-XII intact Results Labs on day of discharge: Labs from last 24 hours 11/18/18 10:19 Troponin I < 0.02 DS: Diagnosis - Discharge Diagnosis (1) History of cardiomyopathy in adulthood Status: Chronic (2) Rapid atrial fibrillation Status: Resolved (3) Atherosclerotic heart disease of [place] coronary artery without angina pectoris Status: Acute (4) Hyperlipidemia Status: Acute Discharge Plan - Patient Discharge Instructions ACTIVITY: Continue current activity Patient Instructions: Atrial Fibrillation - Follow up Plan Follow up with: Sunny Puga MD [Staff Physician] - 1 week Disposition: Home, [facility] Medications: Home Medications Medication Instructions Recorded Confirmed Type colchicine 0.6 mg tablet 0.6 mg PO DAILY 09/09/17 03/16/18 History pantoprazole 40 mg tablet,delayed 40 mg PO DAILY tab 09/09/17 03/16/18 History release Lisinopril/Hydrochlorothiazide 1 tab PO DAILY 10/02/17 03/16/18 History [Lisinopril-Hctz 20-12.5 mg Tab] Rivaroxaban [Xarelto 20mg Tablet] 20 mg PO QPMWM 10/02/17 03/16/18 History clonazePAM [Klonopin 0.5mg tablet] 0.5 mg PO BIDP PRN 10/02/17 03/16/18 History Nebivolol HCl [Bystolic] 5 mg PO DAILY 01/05/18 03/16/18 History Rosuvastatin Calcium [Crestor] 20 mg PO DAILY 01/05/18 03/16/18 History Dicyclomine HCl [Bentyl 10mg 10 - 20 mg PO Q4HP PRN 03/16/18 03/16/18 History capsule] Tramadol HCl [Ultram 50mg 50 mg PO Q6HP PRN 03/16/18 03/16/18 History tablet] raNITIdine HCl [Ranitidine HCl] 150 mg PO DAILY 03/16/18 03/16/18 History Prescriptions/Medication Reconciliation: Continue pantoprazole 40 mg tablet,delayed release 40 mg PO DAILY tab colchicine 0.6 mg tablet 0.6 mg PO DAILY Rivaroxaban [Xarelto 20mg Tablet] 20 mg PO QPMWM clonazePAM [Klonopin 0.5mg tablet] 0.5 mg PO BIDP PRN PRN Reason: Anxiety Rosuvastatin Calcium [Crestor] 20 mg PO DAILY Nebivolol HCl [Bystolic] 5 mg PO DAILY Tramadol HCl [Ultram 50mg tablet] 50 mg PO Q6HP PRN PRN Reason: pain Dicyclomine HCl [Bentyl 10mg capsule] 10 - 20 mg PO Q4HP PRN PRN Reason: IBS Lisinopril/Hydrochlorothiazide [Lisinopril-Hctz 20-12.5 mg Tab] 1 tab PO DAILY raNITIdine HCl [Ranitidine HCl] 150 mg PO DAILY
--- NOTE | 2018-03-17 10:15 | Consult Report ---
History of Present Illness Consult date: 03/17/18 Requesting physician: Garo Avelar Consult reason: atrial fibrillation Chief complaint: Atrial fibrillation Additional Medical History:: 1. Coronary artery disease with history of coronary artery stenting approximately 2014, [place], [place] A. Repeat cardiac catheterization 2017 reportedly with stent widely patent 2. Paroxysmal atrial fibrillation A. On Xarelto since 08/2017 3. Hypertension 4. Fibromyalgia 5. Hyperlipidemia 6. Arthritis History of present illness: 58-year-old male with history of VT in 2016 and subsequent cardiomyopathy as well as atrial fibrillation presented to the emergency department after he awoke at approximately 2 AM with his heart racing. He recognized his heart racing as his atrial fibrillation which he has not had problems with in over a year. Patient presented to the emergency department. In the emergency department he was found to be in atrial fibrillation with a ventricular rate of 160 bpm. Patient was started on a Cardizem drip and would alternate between A. fib with RVR and sinus rhythm. Patient takes Xarelto and Bystolic at home. Decision was made to admit the patient on Cardizem drip to this down unit. At around 6 AM patient converted to sinus rhythm and has maintained sinus rhythm for at least the last 2 hours. He denies chest pain or chest tightness. Troponins have been negative so far. He denies any change in his baseline state of health over the last 1-2 weeks. He has seen local cardiology in August. His last known ejection fraction was around 60% The above per Dr. Monroe [facility] History Medical History: Reports:: Arrhythmia, Atrial Fibrillation, Cardiomyopathy, Hypertension, Myocardial Infarction Denies:: Cancer, Diabetes Mellitus Type 1, Diabetes Mellitus Type 2, MRSA, Seizures Other Medical History: Reports: Arthritis, Fibromyalgia. Denies: Blood Transfusion Reaction Other Surgeries: Yes: Appendectomy, Cholecystectomy, Colonoscopy, EGD, Other Amputation: No Fractures: No - *Social History Educational Level: Attended College Smoking Status: Never smoker Alcohol Intake: current Alcohol Intake Frequency:: holidays/special occasions only Substance Use Type: denies use Occupational Status: disabled, other Housing: house Household Members: none - Psychiatric History Expresses thoughts of harming self/others: None Suicide Plan Description: No Plan *Family Hx:: Stroke, Heart Attack Meds Home Medications Medication Instructions Recorded Confirmed Type colchicine 0.6 mg tablet 0.6 mg PO DAILY 09/09/17 03/16/18 History pantoprazole 40 mg tablet,delayed 40 mg PO DAILY tab 09/09/17 03/16/18 History release Lisinopril/Hydrochlorothiazide 1 tab PO DAILY 10/02/17 03/16/18 History [Lisinopril-Hctz 20-12.5 mg Tab] Rivaroxaban [Xarelto 20mg Tablet] 20 mg PO QPMWM 10/02/17 03/16/18 History clonazePAM [Klonopin 0.5mg tablet] 0.5 mg PO BIDP PRN 10/02/17 03/16/18 History Nebivolol HCl [Bystolic] 5 mg PO DAILY 01/05/18 03/16/18 History Rosuvastatin Calcium [Crestor] 20 mg PO DAILY 01/05/18 03/16/18 History Dicyclomine HCl [Bentyl 10mg 10 - 20 mg PO Q4HP PRN 03/16/18 03/16/18 History capsule] Tramadol HCl [Ultram 50mg 50 mg PO Q6HP PRN 03/16/18 03/16/18 History tablet] raNITIdine HCl [Ranitidine HCl] 150 mg PO DAILY 03/16/18 03/16/18 History Allergies Allergy/AdvReac Type Severity Reaction Status Date / Time acetaminophen [From Tylenol] Allergy Mild itching Verified 03/16/18 03:02 Review of Systems - *Cardiovascular Reports fast heart rate - *Respiratory Reports cough, Reports shortness of breath with activity - *Gastrointestinal Reports heartburn - *Genitourinary Denies blood in urine - *Musculoskeletal Reports joint pain - *Neurologic Denies abnormal walking Exam Vital signs and Labs for Last 24 Hours: Temp Pulse Resp BP Pulse Ox 97.1 F L 73 18 131/57 L 95 03/17/18 08:00 03/17/18 08:00 03/17/18 08:00 03/17/18 08:00 03/17/18 08:00 Laboratory Results - last 24 hr 03/16/18 10:19: Troponin I < 0.02 I & O for Last 24 hours: Intake & Output 03/14/18 03/15/18 03/16/18 03/17/18 11:59 11:59 11:59 11:59 Intake Total 240 / 240 616 / 616 Balance 240 / 240 616 / 616 Weight 265 lb 2 oz - *Routine Neck Exam Present: supple. Absent: JVD, carotid bruit - *Routine Respiratory Exam Present: CTA bilaterally. Absent: accessory muscle use, rales, rhonchi, wheezes - *Routine Cardiovascular Exam Present: RRR. Absent: murmur, gallop, rubs - *Routine Abdominal Exam Present: soft. Absent: tenderness, distended, guarding - *Routine Extremities Exam Absent: edema, calf tenderness - *Routine Neurological Exam Present: alert, oriented X3, moving all extremities Assessment and Plan (1) Paroxysmal atrial fibrillation with rapid ventricular response Status: Acute Category: Medical Code(s): I48.0 - Paroxysmal atrial fibrillation (2) History of cardiomyopathy in adulthood Status: Chronic Category: Medical Code(s): Z86.79 - Personal history of other diseases of the circulatory system (3) Atherosclerotic heart disease of [place] coronary artery without angina pectoris Status: Acute Category: Medical Code(s): I25.10 - Atherosclerotic heart disease of [place] coronary artery without angina pectoris (4) Hyperlipidemia Status: Acute Category: Medical Code(s): E78.5 - Hyperlipidemia, unspecified - Assessment and plan all Dx Assessment and Plan for all problems:: Patient was admitted yesterday with atrial fibrillation with a rapid ventricular response and responded well to Cardizem with subsequent conversion back to sinus rhythm. He was continued on Xarelto therapy and started on amiodarone 400 mg twice daily for maintenance of sinus rhythm. Patient is asymptomatic this a.m. and looking forward to going home. Recommend continuing his home medications plus amiodarone 400 mg twice daily until seen next week in the office at which time we will begin titrating this down. EKG this a.m. shows sinus rhythm with acceptable QT interval on amiodarone therapy.
== END 2018-03-17 10:36 | disposition home or self-care (01) | DRG 310 ==
LOC: ER 02:57 → 2ND 04:09 → INTOOBSV 04:45 → 2ND 04:49
PROVIDERS: ADMIT Family Medicine; ATTEND Internal Medicine Adolescent Medicine
CPT/HCPCS: 36415; 71020; 71046; 80048; 84443; 84484; 85025; 93005; 93306; 96365; 96375; 99285; G0378

== ENCOUNTER → 2018-03-21 09:52 | Outpatient (CLI) | payer MEDICARE, SELFPAY ==
--- NOTE | 2018-03-21 09:54 | CT_ITS ---
CT abdomen pelvis w con CLINICAL HISTORY: Extreme left-sided abdominal pain, diarrhea, fever TECHNIQUE: Axial images obtained with sagittal and coronal reformats. All CT scans at the facility use one or more dose reduction, viz: automated exposure control, ma/kV adjustment per patient size (including targeted exams where dose is matched to indication, i.e. head), or iterative reconstruction technique. COMPARISON: CT scan abdomen and pelvis with IV and oral contrast 01/05/2018 PROCEDURE: Oral Contrast:Given IV Contrast: 75 ml IV Isovue 370 was injected intravenously. FINDINGS: Lung bases: Clear except for minimal post inflammatory scarring right middle lobe in addition to a calcified granuloma right middle lobe ABDOMEN: Liver: No masses or biliary dilatation. Gallbladder: Postcholecystectomy Pancreas: No masses or peripancreatic fluid collections. Spleen: Unremarkable. Adrenals: Unremarkable Kidneys/ureters: No masses. No renal calculi. No hydronephrosis. No perinephric fluid collections. No ureteral dilatation or obvious ureteral calculi. Stomach bowel: The stomach appears normal, there is mild dilatation of mid small bowel loops with diffuse wall thickening suggestive of enteritis. The terminal ileum appears normal. There is moderate scattered stool and gas throughout the colon. There is mild diffuse diverticulosis of the lower descending and sigmoid colon but there is no evidence of diverticulitis. Peritoneum: No abnormal fluid collections. No obvious inflammatory changes. Lymph nodes: No enlarged lymph nodes apparent. Vasculature: No evidence of abdominal aortic aneurysm. No retroperitoneal hemorrhage evident. Bones: There are mild degenerative changes of thoracolumbar junction. PELVIS: Reproductive: Unremarkable, the prostate is normal in size Bladder: Nondistended. No obvious masses. Appendix: Not definitely visualized but there are no pericecal inflammatory changes. IMPRESSION: Abnormal small bowel loops as described suggesting enteritis without evidence of obstruction. Diverticulosis lower descending and sigmoid colon without diverticulitis
== END ==
PROVIDERS: PCP Internal Medicine Adolescent Medicine; Visit Provider Surgery
DX: R10.12 Left upper quadrant pain (principal); R10.32 Left lower quadrant pain
CPT/HCPCS: 74177; Q9967

== ENCOUNTER → 2018-03-27 14:23 | Outpatient (CLI) | payer MEDICARE, SELFPAY ==
[2018-03-27 14:25] LABS: Adenovirus F 40/41, stool Not Detected (NotDetected); Astrovirus Not Detected (NotDetected); Campylobacter Not Detected (NotDetected); Clostridium Difficile A/B, PCR Not Detected (NotDetected); Cryptosporidium Not Detected (NotDetected); Cyclospora Cayetanesis Not Detected (NotDetected); Entamoeba histolytica Not Detected (NotDetected); Enteroaggregative E coli Not Detected (NotDetected); Enteropathogenic E coli Not Detected (NotDetected); Enterotoxigenic E coli Not Detected (NotDetected); Giardia lamblia Not Detected (NotDetected); Norovirus Not Detected (NotDetected); Plesimonas Shigalloides, PCR Not Detected (NotDetected); Rotavirus A Not Detected (NotDetected); Salmonella, PCR Not Detected (NotDetected); Sapovirus Not Detected (NotDetected); Shiga-like toxin E coli Not Detected (NotDetected); Shigella Enterovasive E coli Not Detected (NotDetected); Vibrio Cholerae Not Detected (NotDetected); Vibrio, PCR Not Detected (NotDetected); Yersinia Entercolitica, PCR Not Detected (NotDetected)
== END ==
PROVIDERS: Visit Provider Surgery
DX: R19.7 Diarrhea, unspecified (principal)
CPT/HCPCS: 87507

== ENCOUNTER → 2018-04-04 06:44 | Outpatient (CLI) | payer MEDICARE, SELFPAY ==
--- NOTE | 2018-04-04 06:46 | NM_ITS ---
History and Indications: Hypertension, hyperlipidemia, chest pain. Procedure: Patient received a 0.4 mg of intravenous Lexiscan, resting heart rate was 63 beats per resting blood pressure 150/89, with Lexiscan maximum heart rate achieved was 85 bpm which is less than 85% of the maximum predicted heart rate and a blood pressure was 146/96. With Lexiscan patient complained of chest pressure Electrocardiogram: Resting electrocardiogram showed sinus rhythm nonspecific ST-T changes, with Lexiscan there is less than 1.[address] segment depression noted from the baseline EKG. The EKG portion of the Lexiscan Myoview is nondiagnostic. Cardiac stress and resting SPECT images: Cardiac stress and rest SPECT images were obtained using technetium 99 Myoview 29.1 mCi stress and 10.2 mCi at rest, gated SPECT further analysis of segmental wall motion and calculation of the ejection fraction also done. Cardiac stress and resting SPECT images show a fixed defect involving the inferior, inferolateral, posterolateral and apical wall in a fixed pattern suggestive of area of myocardial scarring, significant ariel-infarct ischemia seen. Computer derived ejection fraction is 38% with moderate hypokinesis involving the inferior, inferolateral, posterolateral and apical wall. Right ventricle is normal size and contractility. Conclusion: 1. The EKG portion of the Lexiscan Myoview is nondiagnostic. 2. Scintigraphic evidence of myocardial scarring involving the inferior, inferolateral, posterolateral and apical wall, there is no significant ariel-infarct ischemia. Computer derived ejection fraction is 38% with segmental wall motion abnormality described above, right ventricle is normal size and contractility. 3. Abnormal Lexiscan Myoview study.
--- NOTE | 2018-04-04 09:40 | HMH.ITSHM ---
Current Home Medications as stated by this patient Dixon Montgomery or equal opportunity representative. [bystolic lisopril crstor klonapin xarelto]
== END ==
PROVIDERS: PCP Internal Medicine Adolescent Medicine; Visit Provider Internal Medicine
DX: I25.10 Atherosclerotic heart disease of native coronary artery without angina pectoris (principal)
CPT/HCPCS: 78452; 93017; A9502; J2785

== ENCOUNTER 2018-04-18 23:11 | Observation (INO) ==
[2018-04-18 23:36] LABS: Basophils % 0.1 % (0.1-2.0); Eosinophils # 0.1 K/mm3 (0.0-0.4); Eosinophils % 0.9 % (0.1-12.0); Hematocrit 46.9 % (42.0-52.0); Hemoglobin 15.5 g/dL (14.1-18.0); Lymphocytes # 1.1 K/mm3 (0.7-4.5); Lymphocytes % 6.8 % (10-50); Mean Corpuscular Hemoglobin 29.8 pg (27.0-31.2); Mean Corpuscular Volume 90.2 fl (80-94); Monocytes # 0.9 K/mm3 (0.1-1.0); Monocytes % 6.2 % (1.7-9.3); Neutrophils # 13.2 K/mm3 (1.8-7.8); Neutrophils % 86.1 % (37.0-80.0); Platelet Count 327 K/mm3 (142-424); Red Cell Distribution Width 13.6 % (11.5-17.5); White Blood Count 15.3 K/mm3 (4.8-10.8)
[2018-04-18 23:43] LABS: Microscopic, Urine URINE MICROSCOPIC (MICROSCOPIC)
[2018-04-18 23:44] LABS: Appearance,Urine CLEAR (Clear); Bilirubin,Urine Negative (Negative); Blood, Urine Negative (Negative); Color,Urine YELLOW (Yellow); Glucose,Urine (UA) Negative (Negative); Ketones,Urine Negative (Negative); Leukocyte Esterase,Urine Negative (Negative); Protein,Urine Negative (Negative); Urobilinogen,Urine 0.2 EU/dl (0.2)
[2018-04-18 23:47] LABS: Amorphous Sediment,Urine Trace /lpf
[2018-04-18 23:50] LABS: Albumin Level 3.2 gm/dL (3.4-5.0); Albumin/Globulin Ratio 0.9 (1.1-1.8); Anion Gap 12.4 mEq/L (5-15); Bilirubin,Total 0.4 mg/dL (0.2-1.0); Calcium 8.5 mg/dL (8.5-10.1); Globulin 3.7 gm/dl (1.3-3.2); Potassium 4.4 mmoL/L (3.5-5.1); Total Protein,Serum 6.9 gm/dL (6.4-8.2)
[2018-04-18 23:53] LABS: Lymphocytes % 4 % (10-50); Monocytes % 1 % (2-9); Neutrophils % 91 % (42-76); RBC Morphology Normal; Total Cells Counted 100
--- NOTE | 2018-04-19 01:02 | Emergency Department Note ---
ED Disposition Clinical Impression: Acute pancreatitis, Abdominal pain Disposition: Admitted as Observation Condition on Discharge: Good Instructions: DI for Acute Abdomen Referrals: Provider,Referral, [Referring] - - Critical Care Critical Care Time: No Attestation: On 04/18/18, the high probability of a clinically significant, sudden or life threatening deterioration of the following system(s) required my full and direct attention, intervention and personal management. The time I documented below is in addition to time spent performing reported procedures but includes the following listed in this critical care notation. Medical Decision Making - Medical Records Medical records reviewed: Yes: I reviewed the patient's medical records. MR Comment: Discussd case with hospitalist television presenter (Dr. Gan). SBAR give. Patient admitted to his service for farther management and monitoring. Patient remained stable during his ED care. - Vijay Inquiry Pt receiving controlled substance: No Vijay was queried for this patient: No Vital Signs: 04/18/18 23:12 04/18/18 23:42 04/19/18 01:42 Temperature 98.0 F Temperature Source Oral Pulse Rate [Left Radial] 77 74 60 Respiratory Rate 18 18 20 Blood Pressure [Right Arm] 138/103 H 132/98 H 165/100 H Blood Pressure Mean [Right Arm] 114 109 121 Blood Pressure Source [Right Arm] Automatic Cuff Blood Pressure Position [Right Arm] Supine 02 Sat by Pulse Oximetry 98 98 100 Oxygen Delivery Method Room Air Room Air 04/19/18 02:00 Temperature Temperature Source Pulse Rate [Left Radial] 60 Respiratory Rate 20 Blood Pressure [Right Arm] 159/98 H Blood Pressure Mean [Right Arm] 118 Blood Pressure Source [Right Arm] Automatic Cuff Blood Pressure Position [Right Arm] Supine 02 Sat by Pulse Oximetry 100 Oxygen Delivery Method Room Air - Lab Data Lab results reviewed: Yes: I reviewed the patient's lab results. Lab Results 04/18/18 23:23: WBC 15.3 H, RBC 5.20, Hgb 15.5, Hct 46.9, MCV 90.2, MCH 29.8, MCHC 33.0, RDW 13.6, Plt Count 327, MPV 7.0 L, Neut % (Auto) 86.1 H, Lymph % (Auto) 6.8 L, [place] % (Auto) 6.2, Eos % (Auto) 0.9, Baso % (Auto) 0.1, Neut # (Auto) 13.2 H, Lymph # (Auto) 1.1, [place] # (Auto) 0.9, Eos # (Auto) 0.1, Baso # (Auto) 0.0, Total Counted 100, Neutrophils % (Manual) 91 H, Band Neutrophils % 4.0, Lymphocytes % (Manual) 4 L, Monocytes % (Manual) 1 L, Platelet Estimate Normal, RBC Morphology Normal 04/18/18 23:23: Sodium 136, Potassium 4.4, Chloride 103, Carbon Dioxide 25, Anion Gap 12.4, BUN 30 H, Creatinine 1.37 H, Estimated Creat Clear 94, Estimated GFR 53 L, Est GFR ( Amer) 65, Glucose 104, Calcium 8.5, Total Bilirubin 0.4, AST 10 L, ALT 25, Alkaline Phosphatase 60, Total Protein 6.9, Albumin 3.2 L , Globulin 3.7 H, Albumin/Globulin Ratio 0.9 L, Amylase 200 H, Lipase 1138 H 04/18/18 23:23: Lactate 0.6 04/18/18 23:35: Urine Color Yellow, Urine Appearance Clear, Urine pH 6.0, Ur Specific [place] 1.020, Urine Protein Negative, Urine Glucose (UA) Negative, Urine Ketones Negative, Urine Blood Negative, Urine Nitrate Negative, Urine Bilirubin Negative, Urine Urobilinogen 0.2, Ur Leukocyte Esterase Negative, Amorphous Sediment Trace Result diagrams: 04/18/18 23:23 04/18/18 23:23 Orders (Tests/Meds): ED MEDICATIONS Generic Name Dose Route Start Last Admin Trade Name Freq PRN Reason Stop Dose Admin Sodium Chloride 500 mls @ 999 mls/hr 04/19/18 01:00 04/19/18 01:40 Sod Chlor 0.9% 1000ml Bag IV 04/19/18 01:30 999 mls/hr .Q31M ANA Administration Sodium Chloride 1,000 mls @ 200 mls/hr 04/19/18 02:30 Sod Chlor 0.9% 1000ml Bag IV 05/19/18 02:29 .Q5H ANA Morphine Sulfate 4 mg 04/19/18 02:24 Morphine 4mg/Ml Syringe IV 05/19/18 02:23 Q4HP PRN Severe Pain Ondansetron HCl 4 mg 04/19/18 02:26 Zofran 4mg/2ml Vial IV 05/19/18 02:25 Q6HP PRN Nausea Sodium Chloride 10 ml 04/18/18 23:17 Saline Flush 10ml Syringe IV 05/18/18 23:16 NEEDED PRN Maintain IV Site Discontinued Medications Generic Name Dose Route Start Last Admin Trade Name Freq PRN Reason Stop Dose Admin Diatrizoate Meglum/Diatrizoate Sod 30 ml 04/19/18 00:04 04/19/18 00:04 Gastrografin 66%-10% 30ml PO 04/19/18 00:05 30 ml ONCE ONE Administration Iopamidol 75 ml 04/19/18 02:01 04/19/18 02:02 [id number]; 75ml Vial IV 04/19/18 02:02 75 ml ONCE ONE Administration Protocol Morphine Sulfate 4 mg 04/18/18 23:36 04/19/18 00:04 Morphine 4mg/Ml Syringe IV 04/18/18 23:37 4 mg ONCE ONE Administration Sodium Chloride 10 ml 04/19/18 02:01 04/19/18 02:02 Rad-Saline Flush 10ml Syringe IV 04/19/18 02:02 10 ml ONCE ONE Administration ORDERS Category Date Time Status CT abdomen pelvis w con Stat Cat Scan 04/19/18 01:32 Taken UA [Urinalysis and Microscopic] Stat Lab 04/18/18 23:35 Ordered - CT Data CT Scan: Abdomen (Finding suspicious for pancreatic tail pancreatitis. Follow up dedicated pancreating imaging is recommened to excludie pancreatic tail mass. ) Time Received: 02:32 Abdominal Pain HPI - General Chief Complaint: Abdominal Pain Stated Complaint: abd pain Time Seen by Provider: 04/18/18 23:14 Mode of Arrival: Ambulatory Source of Information: Patient Limitations: No Limitations Description of Symptoms (Recalled from ER Triage Doc. by RN): PT HAD COLONOSCOPY YESTERDAY AND STARTED HAVING PAIN IN LUQ 2-3 HOURS LATER. DENIES N/V/D. - History of Present Illness MD complaint: abdominal pain Onset (ago): hour(s) Consistency: intermittent Location: LUQ Severity: moderate Severity scale (1-10): 8 Quality: aching, sharp Radiation: none Migration to: no migration Relieving factors: nothing Exacerbating factors: nothing Associated symptoms: denies other symptoms - Related Data Home Medications Medication Instructions Recorded Confirmed colchicine 0.6 mg tablet 0.6 mg PO DAILY 09/09/17 04/16/18 Lisinopril/Hydrochlorothiazide 1 tab PO DAILY 10/02/17 04/16/18 [Lisinopril-Hctz 20-12.5 mg Tab] Rivaroxaban [Xarelto 20mg Tablet] 20 mg PO QPMWM 10/02/17 04/16/18 clonazePAM [Klonopin 0.5mg tablet] 0.5 mg PO BIDP PRN 10/02/17 04/16/18 Rosuvastatin Calcium [Crestor] 20 mg PO DAILY 01/05/18 04/16/18 Dicyclomine HCl [Bentyl 10mg 10 - 20 mg PO Q4HP PRN 03/16/18 04/16/18 capsule] Pantoprazole Sodium [Protonix 40mg 40 mg PO DAILY 03/21/18 04/16/18 tablet] ranitidine 150 mg tablet 150 mg PO DAILY PRN 03/25/18 04/16/18 Carvedilol [Carvedilol 6.25mg Tab] 6.25 mg PO BID 04/09/18 04/16/18 aspirin 81 mg tablet,delayed 81 mg PO DAILY 04/15/18 04/16/18 release Previous Rx's Medication Instructions Recorded Promethazine HCl [Phenergan 25mg 25 mg PO Q6HP PRN #10 tab 03/21/18 tab] Allergies Allergy/AdvReac Type Severity Reaction Status Date / Time acetaminophen [From Tylenol] Allergy Mild itching Verified 04/15/18 12:21 [facility] History - Hepatitis A Screen Drug use history?: No High risk sexual behaviors?: No History of sexually transmitted infection?: No Currently employed?: No Childcare worker?: No Do you have indoor plumbing?: Yes Do you have electricity?: Yes Attestation statement:: This patient has been screened for Hepatitis A risk factors. Medical History: Reports:: Anxiety, Arrhythmia, Atrial Fibrillation, Cardiomyopathy, Coronary Artery Disease, Gastroesophageal Reflux Disease(GERD), Hyperlipidemia, Hypertension, Myocardial Infarction Denies:: Cancer, Diabetes Mellitus Type 1, Diabetes Mellitus Type 2, Internal Pacemaker, MRSA, Seizures Other Medical History: Reports: Arthritis, Fibromyalgia. Denies: Blood Transfusion Reaction Comment: Gout Other Surgeries: Yes: Appendectomy, Cardiac Catheterization (04/08/18 no stenting), Cholecystectomy, Colonoscopy, EGD, Other. No: Pacemaker Amputation: No Fractures: No - Social History Smoking Status: Never smoker Alcohol Intake: never Alcohol Intake Frequency:: holidays/special occasions only Substance Use Type: denies use Occupational Status: unemployed, disabled Housing: house Household Members: none - Psychiatric History Expresses thoughts of harming self/others: None Suicide Plan Description: No Plan Pschychiatric History:: Reports:: Anxiety Family Hx:: No significant family history ROS Obtained: Yes All systems reviewed & no additional complaints - Gastrointestinal Gastrointestingal: Reports: as per HPI Physical Exam - General General appearance: alert, in no apparent distress - Head Head exam: atraumatic, normocephalic, normal inspection - Eye Eye exam: Present: normal appearance, PERRL, EOMI - ENT ENT exam: Present: normal exam, normal oropharynx, mucous membranes moist, TM's normal bilaterally, normal external ear exam - Neck Neck exam: Present: normal inspection, full ROM, trachea midline. Absent: meningismus, lymphadenopathy - Chest Chest inspection: Present: normal inspection, symmetric chest wall rise. Absent: tenderness - Respiratory Respiratory exam: Present: normal lung sounds bilaterally. Absent: respiratory distress - Cardiovascular Cardiovascular exam: Present: regular rate, normal rhythm. Absent: JVD - Abdominal Exam Abdominal exam: Present: soft, tenderness (Moderate tenderness to palpation over LUQ area. No rebound or guarding. No palpable organomegaly.), normal bowel sounds. Absent: distention, guarding - Extremities Exam Extremities exam: Present: normal inspection, full ROM, normal capillary refill. Absent: calf tenderness - Back Exam Back exam: Present: normal inspection. Absent: tenderness - Neurological Exam Neurological exam: Present: alert, oriented X3 - Psychiatric Psychiatric exam: Present: normal affect, normal mood - Skin Skin exam: Present: warm, dry, intact, normal color - Lymphatic Lymphatic Findings: no adenopathy
--- NOTE | 2018-04-19 08:09 | History & Physical Report ---
*Admission Date: 04/19/18 *Chief complaint: Abdominal pain *History of present illness: 58-year-old white male with history of hypertension and hyperlipidemia who underwent successful and uncomplicated screening colonoscopy 2 days ago at this facility who began to have abdominal pain about 36 hours after the colonoscopy. This was centered in the epigastric area, associated with nausea, but no stool changes, vomiting, hematemesis or hematochezia. Came to the emergency department because of the severity of the pain and was found to have significantly elevated amylase and lipase and CT scan of abdomen showed no evidence of structural deficits or problems but did show evidence of pancreatitis on imaging study. No evidence of gallbladder presence or ductal dilatation. The patient has a history of pancreatitis about 8 or 9 years ago that was caused by medication-perhaps HCTZ. He recovered uneventfully from that episode. He was admitted for IV fluids and bowel rest. He already feels better this morning after some IV fluids. [facility] History I have reviewed the patient's past medical history: Yes Medical History: Reports:: Anxiety, Arrhythmia, Atrial Fibrillation, Cardiomyopathy, Coronary Artery Disease, Gastroesophageal Reflux Disease(GERD), Hyperlipidemia, Hypertension, Myocardial Infarction Denies:: Cancer, Diabetes Mellitus Type 1, Diabetes Mellitus Type 2, Internal Pacemaker, MRSA, Seizures Other Medical History: Reports: Arthritis, Fibromyalgia. Denies: Blood Transfusion Reaction Other Surgeries: Yes: Appendectomy, Cardiac Catheterization (04/08/18 no stenting), Cholecystectomy, Colonoscopy, EGD, Other. No: Pacemaker Amputation: No Fractures: No - *Social History Educational Level: Completed College Smoking Status: Never smoker Alcohol Intake: never Alcohol Intake Frequency:: holidays/special occasions only Substance Use Type: denies use Occupational Status: unemployed, disabled Housing: house Household Members: none - Psychiatric History Expresses thoughts of harming self/others: None Suicide Plan Description: No Plan Pschychiatric History:: Reports:: Anxiety *Family Hx:: Coronary Artery Disease, Heart Attack, Hyperlipidemia, Hypertension, Kidney Disease, Stroke, Thyroid Disorder Review of Systems - Review of Systems Review of systems:: pertinent systems reviewed and negative unless documented below - Constitutional Reports anorexia, Denies body ache(s), Denies chills, Denies daytime sleepiness - Eyes Denies blind spots, Denies blurry vision, Denies change in vision - ENT Denies abnormal hearing, Denies bleeding gums, Denies dry mouth - *Cardiovascular Denies chest pain, Denies chest pain at rest, Denies shortness of breath, Denies irregular heart rhythm - *Respiratory Denies change in phlegm color, Denies chest congestion, Denies cough - *Gastrointestinal Reports abdominal pain, Reports cramping, Denies belching, Denies bloating, Denies change in bowel habits, Denies change in stools, Denies coffee ground vomit, Denies constipation, Denies loose stools, Denies heartburn - *Genitourinary Denies difficulty urinating - *Musculoskeletal Denies abnormal walking, Denies joint pain - Integumentary/Breasts Denies acne, Denies bleeding lesions - *Neurologic Denies abnormal walking, Denies abnormal hearing Meds Home Medications Medication Instructions Recorded Confirmed Type colchicine 0.6 mg tablet 0.6 mg PO DAILY 09/09/17 04/19/18 History Lisinopril/Hydrochlorothiazide 1 tab PO BID 10/02/17 04/19/18 History [Lisinopril-Hctz 20-12.5 mg Tab] Rivaroxaban [Xarelto 20mg Tablet] 20 mg PO DAILY 10/02/17 04/19/18 History clonazePAM [Klonopin 0.5mg tablet] 0.5 mg PO BIDP PRN 10/02/17 04/19/18 History Rosuvastatin Calcium [Crestor] 20 mg PO DAILY 01/05/18 04/19/18 History Dicyclomine HCl [Bentyl 10mg 10 - 20 mg PO Q4HP PRN 03/16/18 04/19/18 History capsule] Pantoprazole Sodium [Protonix 40mg 40 mg PO BID 03/21/18 04/19/18 History tablet] Promethazine HCl [Phenergan 25mg 25 mg PO Q6HP PRN #10 tab 03/21/18 04/19/18 Rx tab] ranitidine 150 mg tablet 150 mg PO DAILY PRN 03/25/18 04/19/18 History Carvedilol [Carvedilol 6.25mg Tab] 6.25 mg PO BID 04/09/18 04/19/18 History aspirin 81 mg tablet,delayed 81 mg PO DAILY 04/15/18 04/19/18 History release Allergies Allergy/AdvReac Type Severity Reaction Status Date / Time acetaminophen [From Tylenol] Allergy Mild itching Verified 04/19/18 03:06 Exam Vital signs and Labs for Last 24 Hours: Temp Pulse Resp BP Pulse Ox 97.8 F 62 17 155/92 H 98 04/19/18 02:45 04/19/18 02:45 04/19/18 02:45 04/19/18 02:45 04/19/18 07:52 Laboratory Results - last 24 hr 04/18/18 23:23: WBC 15.3 H, RBC 5.20, Hgb 15.5, Hct 46.9, MCV 90.2, MCH 29.8, MCHC 33.0, RDW 13.6, Plt Count 327, MPV 7.0 L, Neut % (Auto) 86.1 H, Lymph % (Auto) 6.8 L, [place] % (Auto) 6.2, Eos % (Auto) 0.9, Baso % (Auto) 0.1, Neut # (Auto) 13.2 H, Lymph # (Auto) 1.1, [place] # (Auto) 0.9, Eos # (Auto) 0.1, Baso # (Auto) 0.0, Total Counted 100, Neutrophils % (Manual) 91 H, Band Neutrophils % 4.0, Lymphocytes % (Manual) 4 L, Monocytes % (Manual) 1 L, Platelet Estimate Normal, RBC Morphology Normal 04/18/18 23:23: Sodium 136, Potassium 4.4, Chloride 103, Carbon Dioxide 25, Anion Gap 12.4, BUN 30 H, Creatinine 1.37 H, Estimated Creat Clear 94, Estimated GFR 53 L, Est GFR ( Amer) 65, Glucose 104, Calcium 8.5, Total Bilirubin 0.4, AST 10 L, ALT 25, Alkaline Phosphatase 60, Total Protein 6.9, Albumin 3.2 L , Globulin 3.7 H, Albumin/Globulin Ratio 0.9 L, Amylase 200 H, Lipase 1138 H 04/18/18 23:23: Lactate 0.6 04/18/18 23:35: Urine Color Yellow, Urine Appearance Clear, Urine pH 6.0, Ur Specific [place] 1.020, Urine Protein Negative, Urine Glucose (UA) Negative, Urine Ketones Negative, Urine Blood Negative, Urine Nitrate Negative, Urine Bilirubin Negative, Urine Urobilinogen 0.2, Ur Leukocyte Esterase Negative, Amorphous Sediment Trace I & O for Last 24 hours: Intake & Output 04/16/18 04/17/18 04/18/18 04/19/18 11:59 11:59 11:59 11:59 Intake Total 763 / 763 Output Total 675 / 675 Balance 88 / 88 Weight 255 lb 2 oz Narrative: Patient is pleasant, alert. Oriented x3. Sclera are anicteric. No jaundice noted. Lungs are clear. Heart rate regular. No murmur. Abdomen soft, minimal epigastric tenderness. No rebound or guarding. No edema, no clubbing, no cyanosis. Neurologic exam nonfocal. Assessment and Plan (1) Acute pancreatitis Current visit: Yes Status: Acute Category: Medical Code(s): K85.90 - Acute pancreatitis without necrosis or infection, unspecified Acute pancreatitis. Interestingly I placed patient on combination lisinopril/HCTZ several months ago which resulted in good blood pressure co ntrol, but now that I am aware of this history that will obviously need to be changed. Advance diet to clear liquids today if tolerated. Continue IV fluids. Check labs tomorrow.
--- NOTE | 2018-04-19 10:27 | Pharmacy Consult Notes ---
[facility] Pharmacy VTE Monitoring - Patient Demographics Admission date: 04/19/18 Report Date: 04/19/18 Time: 10:26 Allergies/Adverse Reactions: Patient Allergies acetaminophen [From Tylenol] Allergy (Mild, Verified 04/19/18 03:06) itching Height: 1.83 m Weight: 115.723 kg Patient Problems: Current Active Problems Acute pancreatitis (Acute) Abdominal pain (Acute) - VTE Risk Labs: VTE Related Lab Results Hgb 15.5 g/dL (14.1-18.0) 04/18/18 23:23 Hct 46.9 % (42.0-52.0) 04/18/18 23:23 Plt Count 327 K/mm3 (142-424) 04/18/18 23:23 BUN 30 mg/dL (7-18) H 04/18/18 23:23 Creatinine 1.37 mg/dL (0.70-1.30) H 04/18/18 23:23 Estimated Creat Clear 94 mL/min (50-200) 04/18/18 23:23 Was VTE Risk Assessment Performed: Yes VTE Score: 6 VTE Risk Level: Moderate Risk - Prophylaxis Types of VTE Prophylaxis: TEDS Knee High (KIMMY HOSE ORDER PLACED) Location of Applied Device: Bilateral Lower Extremeties
[2018-04-20 07:05] LABS: Basophils % 0.1 % (0.1-2.0); Eosinophils # 0.1 K/mm3 (0.0-0.4); Eosinophils % 1.1 % (0.1-12.0); Hematocrit 39.2 % (42.0-52.0); Hemoglobin 12.7 g/dL (14.1-18.0); Lymphocytes # 0.8 K/mm3 (0.7-4.5); Lymphocytes % 8.5 % (10-50); Mean Corpuscular HGB Conc 32.5 g/dL (31.8-35.4); Mean Corpuscular Hemoglobin 29.7 pg (27.0-31.2); Mean Corpuscular Volume 91.3 fl (80-94); Mean Platelet Volume 7.2 fl (7.4-10.4); Monocytes # 0.4 K/mm3 (0.1-1.0); Monocytes % 4.6 % (1.7-9.3); Neutrophils # 7.6 K/mm3 (1.8-7.8); Neutrophils % 85.7 % (37.0-80.0); Platelet Count 233 K/mm3 (142-424); Red Blood Count 4.29 M/mm3 (4.60-6.20); Red Cell Distribution Width 13.6 % (11.5-17.5); White Blood Count 8.9 K/mm3 (4.8-10.8)
[2018-04-20 07:18] LABS: Albumin Level 2.4 gm/dL (3.4-5.0); Albumin/Globulin Ratio 0.8 (1.1-1.8); Anion Gap 12.3 mEq/L (5-15); Bilirubin,Total 0.5 mg/dL (0.2-1.0); Globulin 2.9 gm/dl (1.3-3.2); Potassium 4.3 mmoL/L (3.5-5.1); Total Protein,Serum 5.3 gm/dL (6.4-8.2)
[2018-04-20 07:31] LABS: Lymphocytes % 5 % (10-50); Monocytes % 1 % (2-9); Neutrophils % 88 % (42-76); RBC Morphology Normal; Total Cells Counted 100
--- NOTE | 2018-04-20 09:13 | Discharge Summary ---
General - General Admission date:: 04/19/18 Discharge date: 04/20/18 HPI HPI: 58-year-old white male with history of hypertension and hyperlipidemia who underwent successful and uncomplicated screening colonoscopy 2 days ago at this facility who began to have abdominal pain about 36 hours after the colonoscopy. This was centered in the epigastric area, associated with nausea, but no stool changes, vomiting, hematemesis or hematochezia. Came to the emergency department because of the severity of the pain and was found to have significantly elevated amylase and lipase and CT scan of abdomen showed no evidence of structural deficits or problems but did show evidence of pancreatitis on imaging study. No evidence of gallbladder presence or ductal dilatation. The patient has a history of pancreatitis about 8 or 9 years ago that was caused by medication-perhaps HCTZ. He recovered uneventfully from that episode. He was admitted for IV fluids and bowel rest. He already feels better this morning after some IV fluids. Hospital Course Hospital Course: Patient was admitted, IV fluids were given, n.p.o. for the first 12 hours in the liquids were started. Patient did very nicely with this, and overnight had no problems. This morning was doing great, belly exam had normalized, low-fat diet was started and he tolerated this well. He will be discharged home with a low-fat diet. We will discontinue his lisinopril/HCTZ medication, close follow-up in the office on , 04/24/18. We will look at his blood pressure regimen again and make sure he is continuing to improve from the pancreatitis episode. Objective Vital signs: Temp Pulse Resp BP Pulse Ox 98.2 F 66 18 142/84 H 95 04/20/18 08:00 04/20/18 08:00 04/20/18 08:00 04/20/18 08:00 04/20/18 08:00 Narrative: Alert, no jaundice, no scleral icterus. Lungs are clear with excellent air expansion. Abdomen soft, nontender, no epigastric pain. No edema, no clubbing. I am nonfocal. Oropharynx clear. No JVD. Results Labs on day of discharge: Labs from last 24 hours 04/20/18 04/20/18 06:50 06:50 WBC 8.9 D RBC 4.29 L Hgb 12.7 L Hct 39.2 L MCV 91.3 MCH 29.7 MCHC 32.5 RDW 13.6 Plt Count 233 D MPV 7.2 L Neut % (Auto) 85.7 H Lymph % (Auto) 8.5 L [place] % (Auto) 4.6 Eos % (Auto) 1.1 Baso % (Auto) 0.1 Neut # (Auto) 7.6 Lymph # (Auto) 0.8 [place] # (Auto) 0.4 Eos # (Auto) 0.1 Baso # (Auto) 0.0 Total Counted 100 Neutrophils % (Manual) 88 H Band Neutrophils % 6.0 Lymphocytes % (Manual) 5 L Monocytes % (Manual) 1 L Platelet Estimate Normal RBC Morphology Normal Sodium 141 Potassium 4.3 Chloride 109 H Carbon Dioxide 24 Anion Gap 12.3 BUN 17 D Creatinine 0.92 D Estimated Creat Clear 143 Estimated GFR 84 Est GFR ( Amer) 102 D Glucose 97 Calcium 8.0 L Total Bilirubin 0.5 AST 8 L ALT 21 Alkaline Phosphatase 52 Total Protein 5.3 L Albumin 2.4 L D Globulin 2.9 Albumin/Globulin Ratio 0.8 L DS: Diagnosis - Discharge Diagnosis (1) Acute pancreatitis Status: Resolved Discharge Plan - Patient Discharge Instructions ACTIVITY: Continue current activity DIET: low fat, low cholesterol Patient Instructions: DI for Pancreatitis - Follow up Plan Follow up with: Ryan Meraz MD [Primary Care Provider] - 04/24/18 11:00 am Disposition: Home, Self-Group Home Medications: Home Medications Medication Instructions Recorded Confirmed Type colchicine 0.6 mg tablet 0.6 mg PO DAILY 09/09/17 04/19/18 History Lisinopril/Hydrochlorothiazide 1 tab PO BID 10/02/17 04/19/18 History [Lisinopril-Hctz 20-12.5 mg Tab] Rivaroxaban [Xarelto 20mg Tablet] 20 mg PO 1700 10/02/17 04/19/18 History clonazePAM [Klonopin 0.5mg tablet] 0.5 mg PO BIDP PRN 10/02/17 04/19/18 History Rosuvastatin Calcium [Crestor] 20 mg PO HS 01/05/18 04/19/18 History Dicyclomine HCl [Bentyl 10mg 10 - 20 mg PO Q4HP PRN 03/16/18 04/19/18 History capsule] Pantoprazole Sodium [Protonix 40mg 40 mg PO BID 03/21/18 04/19/18 History tablet] Promethazine HCl [Phenergan 25mg 25 mg PO Q6HP PRN #10 tab 03/21/18 04/19/18 Rx tab] ranitidine 150 mg tablet 150 mg PO DAILY PRN 03/25/18 04/19/18 History Carvedilol [Carvedilol 6.25mg Tab] 6.25 mg PO BID 04/09/18 04/19/18 History aspirin 81 mg tablet,delayed 81 mg PO DAILY 04/15/18 04/19/18 History release Linaclotide [Linzess] 72 mcg PO DAILY 04/19/18 04/19/18 History Prescriptions/Medication Reconciliation: Continue colchicine 0.6 mg tablet 0.6 mg PO DAILY ranitidine 150 mg tablet 150 mg PO DAILY PRN PRN Reason: GERD aspirin 81 mg tablet,delayed release 81 mg PO DAILY Rivaroxaban [Xarelto 20mg Tablet] 20 mg PO 1700 clonazePAM [Klonopin 0.5mg tablet] 0.5 mg PO BIDP PRN PRN Reason: Anxiety Rosuvastatin Calcium [Crestor] 20 mg PO HS Dicyclomine HCl [Bentyl 10mg capsule] 10 - 20 mg PO Q4HP PRN PRN Reason: IBS Pantoprazole Sodium [Protonix 40mg tablet] 40 mg PO BID Promethazine HCl [Phenergan 25mg tab] 25 mg PO Q6HP PRN #10 tab PRN Reason: Nausea And Vomiting Carvedilol [Carvedilol 6.25mg Tab] 6.25 mg PO BID Linaclotide [Linzess] 72 mcg PO DAILY Discontinued Lisinopril/Hydrochlorothiazide [Lisinopril-Hctz 20-12.5 mg Tab] 1 tab PO BID
== END 2018-04-20 09:40 | disposition home or self-care (01) ==
LOC: 2ND 23:11 → ER 23:11 → 2ND 04-19 02:48
PROVIDERS: ADMIT Internal Medicine Adolescent Medicine; ATTEND Internal Medicine Adolescent Medicine
CPT/HCPCS: 74177; 80053; 81001; 82150; 83605; 83690; 85007; 85025; 96365; 96375; 99284; G0378; Q9967

== ENCOUNTER → 2018-07-17 13:00 | Outpatient (CLI) | payer MEDICARE, SELFPAY ==
--- NOTE | 2018-07-17 13:08 | XR_ITS ---
XR ankle LT min 3V HISTORY: Medial ankle pain ITS.REASON: LEFT ANKLE PAIN ORDERING PHYSICIAN: Ryan Meraz MD PATIENT AGE: 58 years Comparison: None FINDINGS: No fracture or dislocation. No lytic or blastic change. There is normal mineralization.. There are minimal osteoarthritic changes at the ankle joint with small osteophytes of the distal tibia. The talar dome has an unremarkable appearance. IMPRESSION: No acute finding
== END ==
PROVIDERS: PCP Internal Medicine Adolescent Medicine; Visit Provider Internal Medicine Adolescent Medicine
DX: M25.572 Pain in left ankle and joints of left foot (principal)
CPT/HCPCS: 73610

== ENCOUNTER 2018-07-17 13:29 | Outpatient (RCR) | payer MEDICARE, SELFPAY | END 2018-07-17 13:35 | disposition home or self-care (01) | LOC: PT 13:29 | PROVIDERS: Visit Provider Internal Medicine Adolescent Medicine | DX: M25.572 Pain in left ankle and joints of left foot (principal) | CPT/HCPCS: 97760 ==

== ENCOUNTER 2018-08-29 17:37 | Emergency (ER) | payer MEDICARE, SELFPAY ==
[2018-08-29 17:52] VITALS: BP 125/89; PULSE 82; RESP 18; TEMP 36.9; O2SAT 97; BMI 34.5
--- NOTE | 2018-08-29 17:57 | PC.NURSE ---
pt requested utc for xrays
[2018-08-29 18:02] VITALS: BP 123/89; PULSE 76; RESP 20; TEMP 36.8; O2SAT 97; BMI 35.2
--- NOTE | 2018-08-29 18:08 | HMH.EDUTC ---
[facility] [place] Clinical Impression: Hip pain Qualifiers: Laterality: bilateral Qualified Code(s): M25.551 - Pain in right hip Osteoarthritis Qualifiers: Osteoarthritis location: hip Laterality: bilateral Disposition: Home, Self-Care Condition on Discharge: Good Instructions: Osteoarthritis Additional Instructions: Rest, avoid any activities that aggravate your hips. Take tylenol arthritis for pain, if it works. Follow up with your regular doctor. I also put in a referral to Dr. Avilez (orthopedics). Please call her office and get an appointment to be seen by her. Referrals: Ryan Meraz MD [Primary Care Provider] - Mallika Avilez MD [Physician] - Time of Disposition: 19:12 Medical Decision Making - Medical Records Medical records reviewed: Yes: I reviewed the patient's medical records. - Vijay Inquiry Pt receiving controlled substance: No Vijay was queried for this patient: No Vital Signs: 08/29/18 17:52 08/29/18 18:02 08/29/18 19:13 Temperature 98.4 F 98.2 F 98.2 F Temperature Source Oral Oral Oral Pulse Rate 76 Pulse Rate [Right Brachial] 82 76 Respiratory Rate 18 20 20 Blood Pressure 123/89 Blood Pressure [Right Arm] 125/89 123/89 Blood Pressure Mean [Right Arm] 101 100 Blood Pressure Source Automatic Cuff Blood Pressure Source [Right Arm] Automatic Cuff Automatic Cuff Blood Pressure Position Sitting Blood Pressure Position [Right Arm] Sitting Sitting 02 Sat by Pulse Oximetry 97 97 Oxygen Delivery Method Room Air Room Air Room Air Orders (Tests/Meds): ORDERS Category Date Time Status XR hip LT 2-3V w/pelvis Stat Exams 08/29/18 18:12 Taken XR hip RT 2-3V w/pelvis Stat Exams 08/29/18 18:12 Taken - Radiology Data #1 Image(s): Hip Image Reviewed: Yes I reviewed the patient's radiology image Preliminary Findings: No Fracture Seen [facility] [place] HPI - General Stated complaint: Hip Pain Time Seen by Provider: 08/29/18 18:13 Mode of Arrival: Family Vehicle Source of Information: Patient Limitations: No Limitations Description of Symptoms (Recalled from Triage Doc. by RN): C/O RIGHT HIP PAIN AFTER HIP POPPED TODAY WHILE DOWN CHECKING HIS TIRE. HE STATES HE FELL DOWN ON ALL FOURS AND HAD DIFFICULTY GETTING UP DURING WHICH IT SEEMED TO POP BACK INTO PLACE. HAS HX HIP PROBLEMS AND HIS PCP INSTRUCTED HIM TO COME IN FOR X RAYS HEENT Symptoms (Recalled from RN notes): No Resp Symptoms (Recalled from RN notes): No Skin Symptoms (Recalled from RN notes): No MS Symptoms (Recalled from RN notes): Yes Functional Status (Recalled from RN notes): N/A - Related Data Home Medications Medication Instructions Recorded Confirmed clonazePAM [Klonopin 0.5mg tablet] 0.5 mg PO BIDP PRN 10/02/17 08/04/18 Rosuvastatin Calcium [Crestor] 20 mg PO HS 01/05/18 08/04/18 Pantoprazole Sodium [Protonix 40mg 40 mg PO BID 03/21/18 08/04/18 tablet] aspirin 81 mg tablet,delayed 81 mg PO DAILY 04/15/18 08/04/18 release Allopurinol [Zyloprim] 100 mg PO BID 07/05/18 08/04/18 Lisinopril [Lisinopril 10mg Tab] 10 mg PO BID 07/05/18 08/04/18 carvedilol 6.25 mg tablet 12.5 mg PO BID tab 08/04/18 08/04/18 rivaroxaban 20 mg tablet 20 mg PO DAILY tab 08/04/18 08/04/18 Previous Rx's Medication Instructions Recorded nitroglycerin 0.4 mg sublingual 0.4 mg SUBLINGUAL Q5-15M PRN #20 08/05/18 tablet tab Allergies Allergy/AdvReac Type Severity Reaction Status Date / Time acetaminophen [From Tylenol] Allergy Mild itching Verified 08/04/18 08:50 hydrochlorothiazide Allergy Verified 08/29/18 18:08 prednisone Allergy Verified 08/29/18 18:08 - Worker's Comp Is this a Worker's Comp case?: No [facility] History - Hepatitis A Screen Drug use history?: No High risk sexual behaviors?: No History of sexually transmitted infection?: No Currently employed?: No Childcare worker?: No Do you have indoor plumbing?: Yes Do you have electricity?: Yes Attestation statement:: This
--- NOTE | 2018-08-29 18:12 | XR_ITS ---
XR hip RT 2-3V w/pelvis HISTORY: ITS.REASON: hip pain ORDERING PHYSICIAN: Brodie Fletcher MD PATIENT AGE: 58 years COMPARISON: None FINDINGS: No fracture or dislocation is evident. There are minimal osteoarthritic changes of the right hip with some osseous sclerosis and minimal spurring of the inferior aspect of the acetabulum. IMPRESSION: Mild osteoarthritis otherwise negative
--- NOTE | 2018-08-29 18:12 | ED_ITS ---
[facility] – [place] Disposition Clinical Impression: Hip pain Qualifiers: Laterality: bilateral Qualified Code(s): M25.551 - Pain in right hip Osteoarthritis Qualifiers: Osteoarthritis location: hip Laterality: bilateral Disposition: Home, Self-Care Condition on Discharge: Good Instructions: Osteoarthritis Additional Instructions: Rest, avoid any activities that aggravate your hips. Take tylenol arthritis for pain, if it works. Follow up with your regular doctor. I also put in a referral to Dr. Avilez (orthopedics). Please call her office and get an appointment to be seen by her. Referrals: Ryan Meraz MD [Primary Care Provider] - Mallika Avilez MD [Physician] - Time of Disposition: 19:12 Medical Decision Making - Medical Records Medical records reviewed: Yes: I reviewed the patient's medical records. - Vijay Inquiry Pt receiving controlled substance: No Vijay was queried for this patient: No Vital Signs: 08/29/18 17:52 08/29/18 18:02 08/29/18 19:13 Temperature 98.4 F 98.2 F 98.2 F Temperature Source Oral Oral Oral Pulse Rate 76 Pulse Rate [Right Brachial] 82 76 Respiratory Rate 18 20 20 Blood Pressure 123/89 Blood Pressure [Right Arm] 125/89 123/89 Blood Pressure Mean [Right Arm] 101 100 Blood Pressure Source Automatic Cuff Blood Pressure Source [Right Arm] Automatic Cuff Automatic Cuff Blood Pressure Position Sitting Blood Pressure Position [Right Arm] Sitting Sitting 02 Sat by Pulse Oximetry 97 97 Oxygen Delivery Method Room Air Room Air Room Air Orders (Tests/Meds): ORDERS Category Date Time Status XR hip LT 2-3V w/pelvis Stat Exams 08/29/18 18:12 Taken XR hip RT 2-3V w/pelvis Stat Exams 08/29/18 18:12 Taken - Radiology Data #1 Image(s): Hip Image Reviewed: Yes I reviewed the patient's radiology image Preliminary Findings: No Fracture Seen [facility] [place] HPI - General Stated complaint: Hip Pain Time Seen by Provider: 08/29/18 18:13 Mode of Arrival: Family Vehicle Source of Information: Patient Limitations: No Limitations Description of Symptoms (Recalled from Triage Doc. by RN): C/O RIGHT HIP PAIN AFTER HIP POPPED TODAY WHILE DOWN CHECKING HIS TIRE. HE STATES HE FELL DOWN ON ALL FOURS AND HAD DIFFICULTY GETTING UP DURING WHICH IT SEEMED TO POP BACK INTO PLACE. HAS HX HIP PROBLEMS AND HIS PCP INSTRUCTED HIM TO COME IN FOR X RAYS HEENT Symptoms (Recalled from RN notes): No Resp Symptoms (Recalled from RN notes): No Skin Symptoms (Recalled from RN notes): No MS Symptoms (Recalled from RN notes): Yes Functional Status (Recalled from RN notes): N/A - Related Data Home Medications Medication Instructions Recorded Confirmed clonazePAM [Klonopin 0.5mg tablet] 0.5 mg PO BIDP PRN 10/02/17 08/04/18 Rosuvastatin Calcium [Crestor] 20 mg PO HS 01/05/18 08/04/18 Pantoprazole Sodium [Protonix 40mg 40 mg PO BID 03/21/18 08/04/18 tablet] aspirin 81 mg tablet,delayed 81 mg PO DAILY 04/15/18 08/04/18 release Allopurinol [Zyloprim] 100 mg PO BID 07/05/18 08/04/18 Lisinopril [Lisinopril 10mg Tab] 10 mg PO BID 07/05/18 08/04/18 carvedilol 6.25 mg tablet 12.5 mg PO BID tab 08/04/18 08/04/18 rivaroxaban 20 mg tablet 20 mg PO DAILY tab 08/04/18
--- NOTE | 2018-08-29 18:12 | XR_ITS ---
XR hip LT 2-3V w/pelvis HISTORY: ITS.REASON: hip pain ORDERING PHYSICIAN: Brodie Fletcher MD PATIENT AGE: 58 years COMPARISON: None FINDINGS: No fracture or dislocation is evident. No significant degenerative change. No lytic or blastic change. Unremarkable soft tissues IMPRESSION: Negative hip
[2018-08-29 19:13] VITALS: BP 123/89; PULSE 76; RESP 20; TEMP 36.8; O2SAT 97
== END 2018-08-29 19:15 | disposition home or self-care (01) ==
PROVIDERS: Emergency Provider Nurse Practitioner Family; PCP Internal Medicine Adolescent Medicine
DX: M16.0 Bilateral primary osteoarthritis of hip (principal); I48.0 Paroxysmal atrial fibrillation; I25.10 Atherosclerotic heart disease of native coronary artery without angina pectoris; K21.9 Gastro-esophageal reflux disease without esophagitis; E78.5 Hyperlipidemia, unspecified; I10 Essential (primary) hypertension; M79.7 Fibromyalgia
CPT/HCPCS: G0463; 73502; 99201

== ENCOUNTER 2018-10-06 00:12 | Observation (INO) | payer MEDICARE, SELFPAY ==
[2018-10-06 00:14] VITALS: BMI 34.4
--- NOTE | 2018-10-06 00:14 | XR_ITS ---
XR chest 2V HISTORY: Left-sided chest pain ITS.REASON: chest pain ORDERING PHYSICIAN: Baltazar Mills MD PATIENT AGE: 58 years COMPARISON: 08/02/2018 FINDINGS: Unremarkable cardiovascular structures. No lobar consolidation or collapse with no significant change. No acute bony findings IMPRESSION: No change no acute finding
[2018-10-06 00:17] VITALS: BP 165/108; PULSE 66; RESP 20; TEMP 37; O2SAT 99; BMI 34.4
[2018-10-06 00:56] LABS: Basophils % 0.8 % (0.1-2.0); Eosinophils # 0.1 K/mm3 (0.0-0.4); Eosinophils % 1.2 % (0.1-12.0); Hemoglobin 12.7 g/dL (14.1-18.0); Lymphocytes # 1.5 K/mm3 (0.7-4.5); Lymphocytes % 30.6 % (10-50); Mean Corpuscular HGB Conc 32.5 g/dL (31.8-35.4); Mean Corpuscular Hemoglobin 28.2 pg (27.0-31.2); Mean Corpuscular Volume 86.8 fl (80-94); Mean Platelet Volume 6.7 fl (7.4-10.4); Monocytes # 0.4 K/mm3 (0.1-1.0); Monocytes % 8.4 % (1.7-9.3); Neutrophils # 2.9 K/mm3 (1.8-7.8); Neutrophils % 58.9 % (37.0-80.0); Platelet Count 299 K/mm3 (142-424); Red Blood Count 4.49 M/mm3 (4.60-6.20); Red Cell Distribution Width 13.3 % (11.5-17.5); White Blood Count 4.9 K/mm3 (4.8-10.8)
--- NOTE | 2018-10-06 01:02 | HMH.EDCP ---
ED Disposition Clinical Impression: Unstable angina pectoris, History of atrial fibrillation, Obesity (BMI 30.0-34.9) Disposition: Admitted as Observation Condition on Discharge: Good Referrals: Provider,Referral, [Primary Care Provider] - - Critical Care Critical Care Time: No Attestation: On 10/06/18, the high probability of a clinically significant, sudden or life threatening deterioration of the following system(s) required my full and direct attention, intervention and personal management. The time I documented below is in addition to time spent performing reported procedures but includes the following listed in this critical care notation. Medical Decision Making - Medical Records Medical records reviewed: Yes: I reviewed the patient's medical records. - Vijay Inquiry Pt receiving controlled substance: No Vital Signs: 10/06/18 00:17 10/06/18 01:10 Temperature 98.6 F Temperature Source Oral Pulse Rate [Right] 66 59 L Respiratory Rate 20 18 Blood Pressure [Right Arm] 165/108 H 134/93 H Blood Pressure Mean [Right Arm] 127 106 02 Sat by Pulse Oximetry 99 97 Oxygen Delivery Method Room Air Room Air - Lab Data Lab results reviewed: Yes: I reviewed the patient's lab results. Lab Results 10/06/18 00:22: WBC 4.9, RBC 4.49 L, Hgb 12.7 L, Hct 39.0 L, MCV 86.8, MCH 28.2, MCHC 32.5, RDW 13.3, Plt Count 299, MPV 6.7 L, Neut % (Auto) 58.9, Lymph % (Auto) 30.6, [place] % (Auto) 8.4, Eos % (Auto) 1.2, Baso % (Auto) 0.8, Neut # (Auto) 2.9, Lymph # (Auto) 1.5, [place] # (Auto) 0.4, Eos # (Auto) 0.1, Baso # (Auto) 0.0, ESR 25 H 10/06/18 00:22: Sodium 144, Potassium 3.6, Chloride 107, Carbon Dioxide 29, Anion Gap 11.6, BUN 13, Creatinine 0.98, Estimated Creat Clear 134, Estimated GFR 79, Est GFR ( Amer) 95, Glucose 95, Calcium 8.9, Troponin I 0.02, C-Reactive Protein < 0.2 Result diagrams: 10/06/18 00:22 10/06/18 00:22 Orders (Tests/Meds): ED MEDICATIONS Generic Name Dose Route Start Last Admin Trade Name Freq PRN Reason Stop Dose Admin Sodium Chloride 1,000 mls @ 999 mls/hr 10/06/18 00:15 10/06/18 00:30 Sod Chlor 0.9% 1000ml Bag IV 10/06/18 01:15 999 mls/hr .Q1H1M ANA Administration Discontinued Medications Generic Name Dose Route Start Last Admin Trade Name Freq PRN Reason Stop Dose Admin Aspirin 324 mg 10/06/18 00:15 10/06/18 00:30 Aspirin 81mg Chewable Tablet PO 10/06/18 00:16 324 mg ONCE ONE Administration Nitroglycerin 0.4 mg 10/06/18 00:16 10/06/18 00:30 Nitrostat 0.4mg Sl Tablet SL 10/06/18 00:17 Not Given ONCE ONE Nitroglycerin 1 gm 10/06/18 00:30 10/06/18 00:32 Nitroglycerin 1 Inch Oint Udp TD 10/06/18 00:31 1 gm ONCE ONE Administration ORDERS Category Date Time Status XR chest 2V Stat Exams 10/06/18 00:14 Taken 12-lead EKG Request [ECG Request by /Reece] Stat Y 10/06/18 00:14 Ordered - Radiology Data #1 Image(s): Chest Image Reviewed: Yes I reviewed the patient's radiology image Preliminary Findings: Abnormal (cm) - ECG Data Tracing #1 Arrhythmias present: MAT Ischemic changes: non-specific ST-T wave changes ECG compared to prior tracings: there are no significant changes - Physician Consults Physician Consulted: carrillo Reason -: Admission Chest Pain HPI - General Chief Complaint: Chest Pain Stated Complaint: chest pain Time Seen by Provider: 10/06/18 00:30 Mode of Arrival: Ambulatory Source of Information: Patient, Medical Record Limitations: No Limitations Description of Symptoms (Recalled from ER Triage Doc. by RN): Pt states for 2 days he has had left sided chest pain that radiates to his neck. Pt states he seen [facility] saturday and they changed the dosages on his medications and since then he has not felt well. - History of Present Illness HPI narrative: pt with known heart disease with stents and last cath 04/15 - he had chest pain over the last 3 days with weakness and feeling faint - r
--- NOTE | 2018-10-06 01:05 | ED_ITS ---
ED Disposition Clinical Impression: Unstable angina pectoris, History of atrial fibrillation, Obesity (BMI 30.0- 34.9) Disposition: Admitted as Observation Condition on Discharge: Good Referrals: Provider,Referral, [Primary Care Provider] - - Critical Care Critical Care Time: No Attestation: On 10/06/18, the high probability of a clinically significant, sudden or life threatening deterioration of the following system(s) required my full and direct attention, intervention and personal management. The time I documented below is in addition to time spent performing reported procedures but includes the following listed in this critical care notation. Medical Decision Making - Medical Records Medical records reviewed: Yes: I reviewed the patient's medical records. - Vijay Inquiry Pt receiving controlled substance: No Vital Signs: 10/06/18 00:17 10/06/18 01:10 Temperature 98.6 F Temperature Source Oral Pulse Rate [Right] 66 59 L Respiratory Rate 20 18 Blood Pressure [Right Arm] 165/108 H 134/93 H Blood Pressure Mean [Right Arm] 127 106 02 Sat by Pulse Oximetry 99 97 Oxygen Delivery Method Room Air Room Air - Lab Data Lab results reviewed: Yes: I reviewed the patient's lab results. Lab Results 10/06/18 00:22: WBC 4.9, RBC 4.49 L, Hgb 12.7 L, Hct 39.0 L, MCV 86.8, MCH 28.2, MCHC 32.5, RDW 13.3, Plt Count 299, MPV 6.7 L, Neut % (Auto) 58.9, Lymph % (Auto) 30.6, [place] % (Auto) 8.4, Eos % (Auto) 1.2, Baso % (Auto) 0.8, Neut # (Auto) 2.9, Lymph # (Auto) 1.5, [place] # (Auto) 0.4, Eos # (Auto) 0.1, Baso # (Auto) 0.0, ESR 25 H 10/06/18 00:22: Sodium 144, Potassium 3.6, Chloride 107, Carbon Dioxide 29, Anion Gap 11.6, BUN 13, Creatinine 0.98, Estimated Creat Clear 134, Estimated GFR 79, Est GFR ( Amer) 95, Glucose 95, Calcium 8.9, Troponin I 0.02, C- Reactive Protein < 0.2 Result diagrams: 10/06/18 00:22 10/06/18 00:22 Orders (Tests/Meds): ED MEDICATIONS Generic Name Dose Route Start Last Admin Trade Name Freq PRN Reason Stop Dose Admin Sodium Chloride 1,000 mls @ 999 mls/hr 10/06/18 00:15 10/06/18 00:30 Sod Chlor 0.9% 1000ml Bag IV 10/06/18 01:15 999 mls/hr .Q1H1M ANA Administration Discontinued Medications Generic Name Dose Route Start Last Admin Trade Name Freq PRN Reason Stop Dose Admin Aspirin 324 mg 10/06/18 00:15 10/06/18 00:30 Aspirin 81mg Chewable Tablet PO 10/06/18 00:16 324 mg ONCE ONE Administration Nitroglycerin 0.4 mg 10/06/18 00:16 10/06/18 00:30 Nitrostat 0.4mg Sl Tablet SL 10/06/18 00:17 Not Given ONCE ONE Nitroglycerin 1 gm 10/06/18 00:30 10/06/18 00:32 Nitroglycerin 1 Inch Oint Udp TD 10/06/18 00:31 1 gm ONCE ONE Administration ORDERS Category Date Time Status XR chest 2V Stat Exams 10/06/18 00:14 Taken 12-lead EKG Request [ECG Request by /Reece] Stat Y 10/06/18 00:14 Ordered - Radiology Data #1 Image(s): Chest Image Reviewed: Yes I reviewed the patient's radiology image Preliminary Findings: Abnormal (cm) - ECG Data Tracing #1 Arrhythmias present: MAT
[2018-10-06 01:10] VITALS: BP 134/93; PULSE 59; RESP 18; O2SAT 97
[2018-10-06 01:11] LABS: Anion Gap 11.6 mEq/L (5-15); Blood Urea Nitrogen 13 mg/dL (7-18); Calcium 8.9 mg/dL (8.5-10.1); Carbon Dioxide 29 mmol/L (21.0-32.0); Chloride 107 mmol/L (98-107); Creatinine Clearance Estimated 134 mL/min (50-200); Creatinine,Serum 0.98 mg/dL (0.70-1.30); Estimated Glomerular Filt Rate 79 ml/min (>60); GFR (African American) 95 ML/MIN (>60); Glucose 95 mg/dL (74-106); Potassium 3.6 mmoL/L (3.5-5.1); Sodium 144 mmol/L (136-145); Troponin I 0.02 ng/ml (0.00-0.06)
[2018-10-06 01:14] LABS: C-Reactive Protein < 0.2 mg/L (0.0-0.9)
[2018-10-06 01:29] LABS: Erythrocyte Sedimentation Rate 25 mm/hr (0-20)
[2018-10-06 01:52] VITALS: BP 128/84; PULSE 60; RESP 18; TEMP 37; O2SAT 98
--- NOTE | 2018-10-06 02:07 | PC.NURSE ---
ARRIVED TO FLOOR, PER W/C, FROM ED
[2018-10-06 02:27] VITALS: PULSE 70
[2018-10-06 02:32] VITALS: BMI 34.7
[2018-10-06 04:00] VITALS: BP 108/72; PULSE 60; PULSE 64; RESP 17; TEMP 36.7; O2SAT 96
[2018-10-06 05:13] LABS: Troponin I 0.03 ng/ml (0.00-0.06)
--- NOTE | 2018-10-06 06:10 | PC.NURSE ---
KRISTEL PEARSON, NOTIFIED OF CONSULT FOR DR. DOTY.
--- NOTE | 2018-10-06 06:38 | CA_ITS ---
PROCEDURE: 2-D M-mode and color Doppler study INDICATIONS FOR THE TEST: Chest pain X COPD Heart Murmur Tobacco Smoking Palpitations FatigueX Syncope Edema HypertensionXDiabetes Mellitus Rheumatic Fever SOB BEST ObesityXHyperlipidemiaX Family History HD X Additional History H/O AF,CM,CHF PATIENT INFORMATION HEIGHT:72 WEIGHT:256 GENDER: Male B/P:134/93 2-D/M-MODE INTERPRETATION: 2-D MEASUREMENTS OBSERVED VALUES IN CMS Right Ventricular Dimension (RVDd) 2.5 Interventricular Septum (Thickness)(IVsd) 1.1 Left Ventricular Internal Dimensions(LVIDd) 5.1 Left Ventricular Posterior Wall (Thickness)(LVPWd) .9 Aortic Root 3.4 Aortic Cusp Separation 1.9 Left Atrial Dimensions (LAD) 3.0 2D 1. Left atrium is mildly enlarged, left ventricle is normal size, mild concentric left ventricular hypertrophy, visually estimated ejection fraction of 55% with no regional wall motion abnormality. Endocardial surfaces are poorly visualized. 2. The right atrium and right ventricle are normal size and contractility. 3. The aortic valve is minimally thickened and fibrosed. 4. The mitral and tricuspid valve leaflets are minimally thickened. 5. The pulmonic valve is poorly visualized. 6. No significant pericardial effusion noted. DOPPLER INTERROGATION: Doppler interrogation of the aortic, mitral and tricuspid valvular presence of mild mitral and tricuspid regurgitation, tricuspid regurgitation jet velocity is inadequate for calculation of the right ventricular systolic pressure, grade 1 diastolic dysfunction seen without tissue Doppler evidence of raised left atrial pressure. CONCLUSION: 1. Mildly enlarged left atrium, normal left ventricular size, mild concentric left ventricular hypertrophy, visually estimated ejection fraction 55% with no regional wall motion abnormality, grade 1 diastolic dysfunction seen without tissue Doppler evidence of raised left atrial pressure. 2. Mild mitral and tricuspid regurgitation 3. No significant pericardial effusion noted.
--- NOTE | 2018-10-06 07:26 | P.CONPHA_ITS ---
[facility] Pharmacy VTE Monitoring - Patient Demographics Admission date: 10/06/18 Report Date: 10/06/18 Time: 07:26 Allergies/Adverse Reactions: Patient Allergies hydrochlorothiazide Allergy (Verified 09/29/18 13:25) prednisone Allergy (Verified 09/29/18 13:25) Height: 1.83 m Weight: 116.261 kg Patient Problems: Current Active Problems (Updated 10/06/18 @ 01:45 by Baltazar Mills MD) Unstable angina pectoris (Acute) Obesity (BMI 30.0-34.9) (Acute) History of atrial fibrillation (Acute) - VTE Risk Labs: VTE Related Lab Results Hgb 12.7 g/dL (14.1-18.0) L 10/06/18 00:22 Hct 39.0 % (42.0-52.0) L 10/06/18 00:22 Plt Count 299 K/mm3 (142-424) 10/06/18 00:22 BUN 13 mg/dL (7-18) 10/06/18 00:22 Creatinine 0.98 mg/dL (0.70-1.30) 10/06/18 00:22 Estimated Creat Clear 134 mL/min (50-200) 10/06/18 00:22 Was VTE Risk Assessment Performed: Yes VTE Score: 5 VTE Risk Level: Low Risk - Prophylaxis VTE Prophylaxis Ordered?: Yes Types of VTE Prophylaxis: Pharmacological Pharmacologic Type: Other (XARELTO) - VTE Diagnosis Confirmed Treatment or plan recommended: Continue Current Treatment
--- NOTE | 2018-10-06 07:26 | PC.NURSE ---
REPORT GIVEN TO Bettie SOLIZ
[2018-10-06 08:00] VITALS: BP 115/79; PULSE 50; PULSE 57; RESP 18; TEMP 36.7; O2SAT 96
--- NOTE | 2018-10-06 08:00 | HMH.PHAINT ---
MEDICATION RECONCILIATION COMPLETED ON PATIENT USING EXTERNAL FILL HISTORY FROM PHARMACY. -NIKA BRADFORD, NORRISD
--- NOTE | 2018-10-06 08:21 | HMH.PHAINT ---
HOME MEDICATION RECONCILIATION COMPLETED BY USING PT MEDICATION BOTTLES AND PHARMACY LIST.
--- NOTE | 2018-10-06 08:28 | HMH.HP ---
*Admission Date: 10/06/18 *Chief complaint: Chest pain *History of present illness: 58-year-old white male with long history of chronic atrial fibrillation and hypertension and cardiac disease who couple weeks ago was followed in cardiology clinic with event monitoring which revealed several unknown types of events-per the patient-and his carvedilol dose was increased. Since that time he is felt fatigued and tired, but yesterday morning began to have the onset of chest pain that occurred throughout the day in a type of accelerating fashion, worse with exertion. Came to the emergency department where he was admitted. Nitroglycerin has resolved his pain but has left him with a residual headache. [facility] History I have reviewed the patient's past medical history: Yes Medical History: Reports:: Anxiety, Arrhythmia, Atrial Fibrillation, Cardiomyopathy, Coronary Artery Disease, Gastroesophageal Reflux Disease(GERD), Hyperlipidemia, Hypertension, Myocardial Infarction, Palpitations Denies:: Cancer, Diabetes Mellitus Type 1, Diabetes Mellitus Type 2, Internal Pacemaker, Lung Disease, MRSA, Seizures *Have you ever received a pneumonia vaccine?: Yes *Have you received a flu vaccine this season?: Yes Other Medical History: Reports: Arthritis, Fibromyalgia. Denies: Blood Transfusion Reaction Other Surgeries: Yes: Appendectomy, Cardiac Catheterization, Cholecystectomy, Colonoscopy, Coronary Stent, EGD, Other. No: Pacemaker Amputation: No Fractures: No - *Social History Smoking Status: Never smoker Alcohol Intake: never Alcohol Intake Frequency:: holidays/special occasions only Substance Use Type: denies use *Occupational Status:: unemployed, disabled Housing: house Household Members: none *Travel in the last 8 weeks: None - Psychiatric History Expresses thoughts of harming self/others: None Suicide Plan Description: No Plan Pschychiatric History:: Reports:: Anxiety Family Hx:: Coronary Artery Disease, Heart Attack, Stroke, Other Review of Systems - Review of Systems Review of systems:: pertinent systems reviewed and negative unless documented below - Constitutional Denies anorexia, Denies chills - Eyes Denies blind spots, Denies blurry vision - ENT Denies abnormal hearing - *Cardiovascular Reports chest pain, Reports chest pain with activity, Reports shortness of breath, Reports irregular heart rhythm, Denies chest pain at rest, Denies leg swelling - *Respiratory Denies change in phlegm color, Denies chest congestion, Denies shortness of breath with activity - *Gastrointestinal Denies abdominal pain, Denies belching, Denies change in stools - *Genitourinary Denies difficulty urinating - *Musculoskeletal Denies abnormal walking - Integumentary/Breasts Denies bleeding lesions, Denies changing lesions - *Neurologic Denies abnormal walking, Denies seizure-like activity - Psychiatric Denies abnormal sleep pattern - Endocrine Denies cold intolerance, Denies excessive sweating Meds Home Medications Medication Instructions Recorded Confirmed Type clonazePAM [Klonopin 0.5mg tablet] 0.5 mg PO BIDP PRN 10/02/17 10/06/18 History aspirin 81 mg tablet,delayed 81 mg PO DAILY 04/15/18 10/06/18 History release Allopurinol [Zyloprim] 100 mg PO BID 07/05/18 10/06/18 History Lisinopril [Lisinopril 10mg Tab] 10 mg PO BID 07/05/18 10/06/18 History rivaroxaban 20 mg tablet 20 mg PO QPMWM tab 08/04/18 10/06/18 History nitroglycerin 0.4 mg sublingual 0.4 mg SUBLINGUAL Q5-15M PRN #20 08/05/18 10/06/18 Rx tablet tab Carvedilol [Carvedilol 25mg Tab] 25 mg PO BID 10/06/18 10/06/18 History Colchicine [Colcrys 0.6mg tablet] 0.6 mg PO BIDP PRN 10/06/18 10/06/18 History Dicyclomine HCl 10 - 20 mg PO QIDP PRN 10/06/18 10/06/18 History Doxycycline Hyclate [Doxycycline 100 mg PO BID 10/06/18 10/06/18 History 100mg Capsule] Pantoprazole Sodium [Protonix 40mg 40 mg PO BID 10/06/18 10/06/18 History tablet] Rosuvastatin Calci
--- NOTE | 2018-10-06 08:31 | P.HP_ITS ---
*Admission Date: 10/06/18 *Chief complaint: Chest pain *History of present illness: 58-year-old white male with long history of chronic atrial fibrillation and hypertension and cardiac disease who couple weeks ago was followed in cardiology clinic with event monitoring which revealed several unknown types of events-per the patient-and his carvedilol dose was increased. Since that time he is felt fatigued and tired, but yesterday morning began to have the onset of chest pain that occurred throughout the day in a type of accelerating fashion, worse with exertion. Came to the emergency department where he was admitted. Nitroglycerin has resolved his pain but has left him with a residual headache. [facility] History I have reviewed the patient's past medical history: Yes Medical History: Reports:: Anxiety, Arrhythmia, Atrial Fibrillation, Ca rdiomyopathy, Coronary Artery Disease, Gastroesophageal Reflux Disease(GERD), Hyperlipidemia, Hypertension, Myocardial Infarction, Palpitations Denies:: Cancer, Diabetes Mellitus Type 1, Diabetes Mellitus Type 2, Internal Pacemaker, Lung Disease, MRSA, Seizures *Have you ever received a pneumonia vaccine?: Yes *Have you received a flu vaccine this season?: Yes Other Medical History: Reports: Arthritis, Fibromyalgia. Denies: Blood Transfusion Reaction Other Surgeries: Yes: Appendectomy, Cardiac Catheterization, Cholecystectomy, Colonoscopy, Coronary Stent, EGD, Other. No: Pacemaker Amputation: No Fractures: No - *Social History Smoking Status: Never smoker Alcohol Intake: never Alcohol Intake Frequency:: holidays/special occasions only Substance Use Type: denies use *Occupational Status:: unemployed, disabled Housing: house Household Members: none *Travel in the last 8 weeks: None - Psychiatric History Expresses thoughts of harming self/others: None Suicide Plan Description: No Plan Pschychiatric History:: Reports:: Anxiety Family Hx:: Coronary Artery Disease, Heart Attack, Stroke, Other Review of Systems - Review of Systems Review of systems:: pertinent systems reviewed and negative unless documented below - Constitutional Denies anorexia, Denies chills - Eyes Denies blind spots, Denies blurry vision - ENT Denies abnormal hearing - *Cardiovascular Reports chest pain, Reports chest pain with activity, Reports shortness of breath, Reports irregular heart rhythm, Denies chest pain at rest, Denies leg swelling - *Respiratory Denies change in phlegm color, Denies chest congestion, Denies shortness of breath with activity - *Gastrointestinal Denies abdominal pain, Denies belching, Denies change in stools - *Genitourinary Denies difficulty urinating - *Musculoskeletal Denies abnormal walking - Integumentary/Breasts Denies bleeding lesions, Denies changing lesions - *Neurologic Denies abnormal walking, Denies seizure-like activity - Psychiatric Denies abnormal sleep pattern - Endocrine Denies cold intolerance, Denies excessive sweating Meds Home Medications Medication Instructions Recorded Confirmed Type clonazePAM [Klonopin 0.5mg tablet] 0.5 mg PO BIDP PRN 10/02/17 10/06/18 History aspirin 81 mg tablet,delayed 81 mg PO DAILY 04/15/18 10/06/18 History release Allopurinol [Zyloprim] 100 mg PO BID 07/05/18 10/06/18 History Lisinopril [Lisinopril 10mg Tab] 10 mg PO BID 07/05/18 10/06/18 History rivaroxaban 20 mg tablet 20 mg PO QPMWM tab 08/04/18 10/06/18 History nitroglycerin 0.4 mg subl
--- NOTE | 2018-10-06 08:55 | HMH.CNCARD ---
History of Present Illness Consult date: 10/06/18 Requesting physician: Garo Avelar Consult reason: chest pain Chief complaint: chest pain, fatigue Additional Medical History:: 1. Coronary artery disease with history of coronary artery stenting approximately 2014, [place], [place] A. Repeat cardiac catheterization 2017 reportedly with stent widely patent B. [facility], 03/2018, ANGIOGRAPHIC RESULTS: 1. The left main artery normal 2. The left anterior descending artery is proximally normal and has a mid vessel stent which is widely patent with excellent distal and proximal transitioning into the ambler vessel 3. The circumflex artery is nondominant and gives rise to a large ramus intermedius which is angiographically normal.. The true circumflex artery is nondominant and has mid vessel 30% stenoses 4. The right coronary artery is a large dominant vessel and has very proximal 10-20% stenosis with mild distal luminal irregularities 5. The MCCALL ventriculogram reveals slightly decreased at 50% 6. The left ventricular end-diastolic pressure 15 mmHg 2. Paroxysmal atrial fibrillation A. On Xarelto since 08/2017 3. Hypertension 4. Fibromyalgia 5. Hyperlipidemia 6. Arthritis 7. Holter, 08/2018, non-sustained V. tach up to 9 beats with evidence of SVT also. History of present illness: 58-year-old white male with long history of chronic atrial fibrillation and hypertension and cardiac disease who couple weeks ago was followed in cardiology clinic with event monitoring which revealed several unknown types of events-per the patient-and his carvedilol dose was increased. Since that time he is felt fatigued and tired, but yesterday morning began to have the onset of chest pain that occurred throughout the day in a type of accelerating fashion, worse with exertion. Came to the emergency department where he was admitted. Nitroglycerin has resolved his pain but has left him with a residual headache. The above per Dr. Avelar Recent event monitor from office visit 09/29/2018 shows nonsustained ventricular tachycardia up to 9 bpm and evidence of SVT. For this reason the patient's carvedilol was increased to 25 mg twice daily. Since then he has felt severe fatigue, weakness and as if something is not right. He denies any syncope or near syncopal symptoms until yesterday morning while at [employer] the patient feels like there was a brief period of seconds when he was not aware of what was going on. Patient describes a constellation of different symptoms including back pain neck pain and lower rib pain on the left and right sides that occurs at different times and may occur with or without activity. Patient did drive himself to the ER and was admitted for observation. Cardiac troponins overnight have returned within normal limits. Patient's telemetry has shown no significant arrhythmias. Patient states since he has moved from [place] to [place] he has benign unable to attend cardiac rehab due to financial restraints. He feels that this has contributed to his general decline in health and wellness. He also feels that with the change in medications he does not feel as good also. He previously was on by systolic and sotalol. When it was felt that he had developed an ischemic cardiomyopathy with an ejection fraction of 38% those medications were discontinued and patient was placed on carvedilol. His most recent cardiac catheterization in March 2018 shows a normal cardiac function with widely patent LAD stent and [id number] mild coronary artery disease. Echocardiogram today shows preserved left ventricular ejection fraction. [facility] History Medical History: Reports:: Anxiety, Arrhythmia, Atrial Fibrillation, Cardiomyopathy, Coronary Artery Disease, Gastroesophageal Reflux Disease(GERD), Hyperlipidemia, Hypertension, Myocardial Infarction, Palpitations Denies:: Cancer, Diabetes Mellitus Type 1, Diabetes Mellitus Type 2, Internal Pacemaker, Lung Disea
--- NOTE | 2018-10-06 09:01 | P.CONS_ITS ---
History of Present Illness Consult date: 10/06/18 Requesting physician: Garo Avelar Consult reason: chest pain Chief complaint: chest pain, fatigue Additional Medical History:: 1. Coronary artery disease with history of coronary artery stenting approximately 2014, [place], [place] A. Repeat cardiac catheterization 2017 reportedly with stent widely patent B. [facility], 03/2018, ANGIOGRAPHIC RESULTS: 1. The left main artery normal 2. The left anterior descending artery is proximally normal and has a mid vessel stent which is widely patent with excellent distal and proximal transitioning into the redding vessel 3. The circumflex artery is nondominant and gives rise to a large ramus intermedius which is angiographically normal.. The true circumflex artery is nondominant and has mid vessel 30% stenoses 4. The right coronary artery is a large dominant vessel and has very proximal 10-20% stenosis with mild distal luminal irregularities 5. The MCCALL ventriculogram reveals slightly decreased at 50% 6. The left ventricular end-diastolic pressure 15 mmHg 2. Paroxysmal atrial fibrillation A. On Xarelto since 08/2017 3. Hypertension 4. Fibromyalgia 5. Hyperlipidemia 6. Arthritis 7. Holter, 08/2018, non-sustained V. tach up to 9 beats with evidence of SVT also. History of present illness: 58-year-old white male with long history of chronic atrial fibrillation and hypertension and cardiac disease who couple weeks ago was followed in cardiology clinic with event monitoring which revealed several unknown types of events-per the patient-and his carvedilol dose was increased. Since that time he is felt fatigued and tired, but yesterday morning began to have the onset of chest pain that occurred throughout the day in a type of accelerating fashion, worse with exertion. Came to the emergency department where he was admitted. Nitroglycerin has resolved his pain but has left him with a residual headache. The above per Dr. Avelar Recent event monitor from office visit 09/29/2018 shows nonsustained ventricular tachycardia up to 9 bpm and evidence of SVT. For this reason the patient's carvedilol was increased to 25 mg twice daily. Since then he has felt severe fatigue, weakness and as if something is not right. He denies any syncope or near syncopal symptoms until yesterday morning while at [employer] the patient feels like there was a brief period of seconds when he was not aware of what was going on. Patient describes a constellation of different symptoms including back pain neck pain and lower rib pain on the left and right sides that occurs at di fferent times and may occur with or without activity. Patient did drive himself to the ER and was admitted for observation. Cardiac troponins overnight have returned within normal limits. Patient's telemetry has shown no significant arrhythmias. Patient states since he has moved from [place] to [place] he has benign unable to attend cardiac rehab due to financial restraints. He feels that this has contributed to his general decline in health and wellness. He also feels that with the change in medications he does not feel as good also. He previously was on by systolic and sotalol. When it was felt that he had developed an ischemic cardiomyopathy with an ejection fraction of 38% those medications were discontinued and patient was placed on carvedilol. His most recent cardiac catheterization in March 2018 shows a normal cardiac function with widely patent LAD stent and [id number] mild coronary artery disease. Echocardiogram today shows preserved left ventricular ejection fraction. [facility] History Medical History: Reports:: Anxiety,
--- NOTE | 2018-10-06 09:03 | HMH.DCSUM ---
General - General Admission date:: 10/06/18 Discharge date: 10/06/18 HPI HPI: 58-year-old white male with long history of chronic atrial fibrillation and hypertension and cardiac disease who couple weeks ago was followed in cardiology clinic with event monitoring which revealed several unknown types of events-per the patient-and his carvedilol dose was increased. Since that time he is felt fatigued and tired, but yesterday morning began to have the onset of chest pain that occurred throughout the day in a type of accelerating fashion, worse with exertion. Came to the emergency department where he was admitted. Nitroglycerin has resolved his pain but has left him with a residual headache. Hospital Course Hospital Course: Patient was admitted, ruled out for myocardial infarction by enzyme and EKG criteria. 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 Cardiology consult reviewed and appreciated. Patient will be discharged home today, plan will be to change to another variety of beta-gaurav to suppress SVT/PVC issues, hopefully with less side effects of fatigue. We will choose Bystolic, 10 mg daily which she has tolerated in the past but his previous insurance plan did not pay for this. We will schedule him a short-term follow-up in my office. Patient is also interested in cardiac rehab evaluation. We will see if insurance will cover this to assist with conditioning and heart rate improvement issues. Objective Vital signs: Temp Pulse Resp BP Pulse Ox 98.0 F 57 L 18 115/79 96 10/06/18 08:00 10/06/18 08:00 10/06/18 08:00 10/06/18 08:00 10/06/18 08:00 Narrative: Please see H&P dictated this morning for exam details Results Labs on day of discharge: Labs from last 24 hours 10/06/18 10/06/18 10/06/18 04:50 00:22 00:22 WBC 4.9 RBC 4.49 L Hgb 12.7 L Hct 39.0 L MCV 86.8 MCH 28.2 MCHC 32.5 RDW 13.3 Plt Count 299 MPV 6.7 L Neut % (Auto) 58.9 Lymph % (Auto) 30.6 [place] % (Auto) 8.4 Eos % (Auto) 1.2 Baso % (Auto) 0.8 Neut # (Auto) 2.9 Lymph # (Auto) 1.5 [place] # (Auto) 0.4 Eos # (Auto) 0.1 Baso # (Auto) 0.0 ESR 25 H Sodium 144 Potassium 3.6 Chloride 107 Carbon Dioxide 29 Anion Gap 11.6 BUN 13 Creatinine 0.98 Estimated Creat Clear 134 Estimated GFR 79 Est GFR ( Amer) 95 Glucose 95 Calcium 8.9 Troponin I 0.03 0.02 C-Reactive Protein < 0.2 DS: Diagnosis - Discharge Diagnosis (1) History of atrial fibrillation Status: Chronic (2) Obesity (BMI 30.0-34.9) Status: Chronic (3) Angina pectoris Status: Resolved Discharge Plan - Patient Discharge Instructions ACTIVITY: Continue current activity DIET: continue same diet Patient Instructions: Atrial Fibrillation, Angina - Follow up Plan Follow up with: Luisa Omalley APRN [Nurse Practitioner] - 10/09/18 9:30 am Unknown provider or service follow up:: 10/06/18 09:05 Please schedule cardiac rehab evaluation Disposition: Home, Self-Halfway Medications: Home Medications Medication Instructions Recorded Confirmed Type clonazePAM [Klonopin 0.5mg tablet] 0.5 mg PO BIDP PRN 10/02/17 10/06/18 History aspirin 81 mg tablet,delayed 81 mg PO DAILY 04/15/18 10/06/18 History release Allopurinol [Zyloprim] 100 mg PO BID 07/05/18 10/06/18 History Lisinopril [Lisinopril 10mg Tab] 10 mg PO BID 07/05/18 10/06/18 History rivaroxaban 20 mg tablet 20 mg PO QPMWM tab 08/04/18 10/06/18 History nitroglycerin 0.4 mg sublingual 0.4 mg SUBLINGUAL Q5-15M PRN #20 08/05/18 10/06/18 Rx tablet tab Carvedilol [Carvedilol 25mg Tab] 25 mg PO BID 10/06/18 10/06/18 History Colchicine [Colcrys 0.6mg tablet] 0.6 mg PO BIDP PRN 10/06/18 10/06/18 History Dicyclomine HCl 10 - 20 mg PO QIDP PRN 10/06/18 10/06/18 History Doxycycline Hyclate [Doxycycline 100 mg PO BID 10/06/1810/06
[2018-10-06 09:04] LABS: Troponin I 0.03 ng/ml (0.00-0.06)
--- NOTE | 2018-10-06 09:06 | P.DS_ITS ---
General - General Admission date:: 10/06/18 Discharge date: 10/06/18 HPI HPI: 58-year-old white male with long history of chronic atrial fibrillation and hypertension and cardiac disease who couple weeks ago was followed in cardiology clinic with event monitoring which revealed several unknown types of events-per the patient-and his carvedilol dose was increased. Since that time he is felt fatigued and tired, but yesterday morning began to have the onset of chest pain that occurred throughout the day in a type of accelerating fashion, worse with exertion. Came to the emergency department where he was admitted. Nitroglycerin has resolved his pain but has left him with a residual headache. Hospital Course Hospital Course: Patient was admitted, ruled out for myocardial infarction by enzyme and EKG david frazier. Echocardiogram showed no record changer his baseline with ejection fraction 50%. Cardiology consult reviewed and appreciated. Patient will be discharged home today, plan will be to change to another variety of beta-gaurav to suppress SVT/PVC issues, hopefully with less side effects of fatigue. We will choose Bystolic, 10 mg daily which she has tolerated in the past but his previous insurance plan did not pay for this. We will schedule him a short-term follow-up in my office. Patient is also interested in cardiac rehab evaluation. We will see if insurance will cover this to assist with conditioning and heart rate improvement issues. Objective Vital signs: Temp Pulse Resp BP Pulse Ox 98.0 F 57 L 18 115/79 96 10/06/18 08:00 10/06/18 08:00 10/06/18 08:00 10/06/18 08:00 10/06/18 08:00 Narrative: Please see H&P dictated this morning for exam details Results Labs on day of discharge: Labs from last 24 hours 10/06/18 10/06/18 10/06/18 04:50 00:22 00:22 WBC 4.9 RBC 4.49 L Hgb 12.7 L Hct 39.0 L MCV 86.8 MCH 28.2 MCHC 32.5 RDW 13.3 Plt Count 299 MPV 6.7 L Neut % (Auto) 58.9 Lymph % (Auto) 30.6 [place] % (Auto) 8.4 Eos % (Auto) 1.2 Baso % (Auto) 0.8 Neut # (Auto) 2.9 Lymph # (Auto) 1.5 [place] # (Auto) 0.4 Eos # (Auto) 0.1 Baso # (Auto) 0.0 ESR 25 H Sodium 144 Potassium 3.6 Chloride 107 Carbon Dioxide 29 Anion Gap 11.6 BUN 13 Creatinine 0.98 Estimated Creat Clear 134 Estimated GFR 79 Est GFR ( Amer) 95 Glucose 95 Calcium 8.9 Troponin I 0.03 0.02 C-Reactive Protein < 0.2 DS: Diagnosis - Discharge Diagnosis (1) History of atrial fibrillation Status: Chronic (2) Obesity (BMI 30.0-34.9) Status: Chronic (3) Angina pectoris Status: Resolved Discharge Plan - Patient Discharge Instructions ACTIVITY: Continue current activity DIET: continue same diet Patient Instructions: Atrial Fibrillation, Angina - Follow up Plan Follow up with: Luisa Omalley APRN [Nurse Practitioner] - 10/09/18 9:30 am Unknown provider or service follow up:: 10/06/18 09:05 Please schedule cardiac rehab evaluat
--- NOTE | 2018-10-06 09:17 | HMH.PHAINT ---
DISCHARGE COUNSELING COMPLETED ON PATIENT. CARVEDILOL IS BEING SWITCHED TO BYSTOLIC. ALL OTHER MEDICATIONS ARE BEING CONTINUED. PATIENT VERBALIZED UNDERSTANDING. -NIKA BRADFORD, NORRISD
== END 2018-10-06 09:55 | disposition home or self-care (01) ==
LOC: ER 01:46 → 2ND 02:07
PROVIDERS: Admitting Provider Family Medicine; Emergency Provider Emergency Medicine; Visit Provider Internal Medicine Adolescent Medicine
DX: I25.119 Atherosclerotic heart disease of native coronary artery with unspecified angina pectoris (principal); I48.91 Unspecified atrial fibrillation; E66.9 Obesity, unspecified; I10 Essential (primary) hypertension; I25.2 Old myocardial infarction; E78.5 Hyperlipidemia, unspecified; F41.9 Anxiety disorder, unspecified; K21.9 Gastro-esophageal reflux disease without esophagitis; Z86.79 Personal history of other diseases of the circulatory system; Z68.34 Body mass index [BMI] 34.0-34.9, adult; Z79.82 Long term (current) use of aspirin; Z79.899 Other long term (current) drug therapy; Z88.6 Allergy status to analgesic agent; Z88.8 Allergy status to other drugs, medicaments and biological substances
CPT/HCPCS: 36415; 71046; 80048; 84484; 85025; 85651; 86140; 93005; 93306; 96365; 99284; G0378

== ENCOUNTER → 2018-10-07 13:58 | Outpatient (CLI) | payer MEDICARE, SELFPAY | PROVIDERS: PCP Internal Medicine Adolescent Medicine; Visit Provider Internal Medicine | DX: G47.33 Obstructive sleep apnea (adult) (pediatric) (principal); I10 Essential (primary) hypertension | CPT/HCPCS: G0399 ==

== ENCOUNTER → 2018-12-11 11:51 | Outpatient (CLI) | payer MEDICARE, SELFPAY ==
[2018-12-11 13:28] LABS: Basophils % 0.5 % (0.1-2.0); Eosinophils # 0.1 K/mm3 (0.0-0.4); Eosinophils % 1.3 % (0.1-12.0); Hematocrit 36.9 % (42.0-52.0); Lymphocytes # 1.4 K/mm3 (0.7-4.5); Lymphocytes % 17.7 % (10-50); Mean Corpuscular HGB Conc 32.5 g/dL (31.8-35.4); Mean Corpuscular Hemoglobin 30.3 pg (27.0-31.2); Mean Corpuscular Volume 93.3 fl (80-94); Mean Platelet Volume 6.9 fl (7.4-10.4); Monocytes # 0.6 K/mm3 (0.1-1.0); Neutrophils % 73.5 % (37.0-80.0); Platelet Count 278 K/mm3 (142-424); Red Blood Count 3.95 M/mm3 (4.60-6.20); Red Cell Distribution Width 13.9 % (11.5-17.5); White Blood Count 8.1 K/mm3 (4.8-10.8)
[2018-12-11 13:32] LABS: C-Reactive Protein 5.2 mg/dL (0.0-0.9)
[2018-12-11 13:51] LABS: Erythrocyte Sedimentation Rate 19 mm/hr (0-20)
--- NOTE | 2018-12-11 14:25 | MR_ITS ---
PROCEDURE: MR PELVIS WO/W CON CLINICAL INDICATION: MASS OF RIGHT HIP, HEMATOMA Right hip mass, pain, mass versus hematoma COMPARISON: CT HIP RT WO CON from 12/10/2018 TECHNIQUE: Multiplanar multi echo sequences are performed without and with contrast FINDINGS: There is diffuse abnormal signal intensity involving the right gluteus medius muscle with heterogeneous increased T2 signal. This does correspond to the recent CT scan. There does appear to be discontinuity of fibers of the gluteus medius muscle as noted on the coronal images with diffuse edema of the muscle laterally. There is also diffuse edema of the gluteus adebayo muscle. No abnormal enhancement evident that would indicate a mass.. Hematoma is present along the posterior lateral aspect of the hip measuring 10 x 7 x 8 cm. No abnormal enhancement in this region that would indicate a mass. No fracture or dislocation is evident. No bony destructive process. IMPRESSION: The findings are consistent with tear of the right gluteus medius muscle with hematoma and edema about the right hip in the gluteus medius muscle bed with diffuse edema within the gluteus medius and gluteus adebayo muscle and posterior to the right hip. The hematoma itself measures approximately 10 cm AP and 7 cm transverse and 8 cm cephalad caudad. Dictated by: Navarro Ko MD 12/11/2018 16:40 Signed by: <Electronically signed by Navarro Ko MD in [place]> 12/11/2018 16:40
[2018-12-11 14:41] LABS: Blood Urea Nitrogen 27 mg/dL (7-18); Creatinine,Serum 1.42 mg/dL (0.70-1.30); Estimated Glomerular Filt Rate 51 ml/min (>60); GFR (African American) 62 ML/MIN (>60)
== END ==
PROVIDERS: PCP Nurse Practitioner Family; Visit Provider Nurse Practitioner Family
DX: R22.41 Localized swelling, mass and lump, right lower limb (principal); T14.8XXA Other injury of unspecified body region, initial encounter; Z79.01 Long term (current) use of anticoagulants
CPT/HCPCS: 36415; 72197; 82565; 84520; 85025; 85651; 86140

== ENCOUNTER 2019-01-28 10:00 | Outpatient (RCR) | payer MEDICARE, SELFPAY ==
--- NOTE | 2019-01-26 12:22 | HMH.PTOPEV ---
PT Outpatient Evaluation Rehab PT Outpatient Evaluation Start: 01/26/19 11:33 Freq: Status: Active Protocol: Document 01/26/19 11:34 [email or web address] (Rec: 01/26/19 12:22 [email or web address] [id number]) Electronically Signed By Pancho Rodriguez, PT 01/26/19 11:34 Outpatient Therapy Subjective History Subjective History Pt. is a 58 year old male who presents to outpatient PT with complaints of subacute and constant RLB/ RLE(posterior/lateral hip, lateral calf) of insidious onset 7 weeks ago. Pt. reports he was walking and felt a twisting pop, like tearing a chicken bone, in his R hip and stated his RLE locked up. Pt. also reports increased ecchymosis throughout his entire RLE post lock up. Pt. reports it may have been because of all the injections that he has had in the past. Pt. reports no symptom relief post 2 R SI injections. Recent diagnostic imaging positive for a R gluteal medius/adebayo strain and hematoma per pt. report. Pt. reports RTMD in 6 wks. from last Saturday(01/19/19 ). Current medications include Xarelto, Tylenol, Lisinopril, and Bistolic. PMH includes a heart attack x 1, Cardiovascular stent x 1, Afib ., Cholecystectomy, HTN, and Colectomy. Chief Complaint Pain,Gives out/Unstable Symptom Type Burning,Shooting Symptoms Relieved By Rest/Positioning,Heat,Ice Symptoms Aggravated By Supine,Sitting,Standing, Bending/Stooping,Walking Prior Functional Limitations None Current Functional Limitations Sleeping,Standing,Sitting, Walking,Balance Symptom Description Constant and Continuous Level of pain today (0-10) 3 Pain scale - at its best (0-10) 3 Pain scale - at its worst (0-10) 10 Lumbopelvic Eval Posture Thoracic Spine Posture Standing Position Neutral,Increased Kyphosis Lumbar Spine Posture Standing Position Neutral Assistive device Assistive Devices None / NA Gait Observation General Gait Patte
== END 2019-02-24 15:00 | disposition home or self-care (01) ==
LOC: PT.CARL 10:00
PROVIDERS: PCP Internal Medicine Adolescent Medicine; Visit Provider Orthopaedic Surgery
DX: S76.011A Strain of muscle, fascia and tendon of right hip, initial encounter (principal)
CPT/HCPCS: 97012; 97014; 97110; 97163; G0283

== ENCOUNTER → 2019-05-05 14:09 | Outpatient (CLI) | payer MEDICARE, SELFPAY | PROVIDERS: PCP Internal Medicine Adolescent Medicine; Visit Provider Nurse Practitioner Family | DX: R00.2 Palpitations (principal) | CPT/HCPCS: 93270 ==

== ENCOUNTER → 2019-10-27 11:24 | Outpatient (CLI) | payer MEDICARE, SELFPAY ==
[2019-10-27 13:39] LABS: Chloride 106 mmol/L (98-107)
[2019-10-27 13:40] LABS: Sodium 138 mmol/L (136-145)
[2019-10-27 13:42] LABS: Alanine Aminotransferase 12 U/L (12-78); Aspartate Amino Transferase 21 U/L (17-59); Blood Urea Nitrogen 19 mg/dl (9-20); Carbon Dioxide 29 mmol/L (22.0-30.0); Estimated Glomerular Filt Rate 76 ml/min (>60); GFR (African American) 93 ML/MIN (>60)
[2019-10-27 13:43] LABS: Albumin Level 3.6 g/dl (3.5-5.0); Albumin/Globulin Ratio 1.4 (1.1-1.8); Alkaline Phosphatase 57 U/L (38-126); Bilirubin,Total 0.5 mg/dl (0.2-1.3); Calcium 9.4 mg/dl (8.4-10.2); Chol/HDL Ratio 2.3 (1-3.5); Cholesterol 125 mg/dl (140-200); Globulin 2.5 g/dL (1.3-3.2); Glucose 83 mg/dl (74-100); HDL Cholesterol 55 mg/dl (40-60); Total Protein,Serum 6.1 g/dl (6.3-8.2); Triglycerides 126 mg/dl (30-150); VLDL Cholesterol 25 mg/dL (0-40)
[2019-10-27 13:54] LABS: Direct LDL Cholesterol 61.78 mg/dL (100-129)
[2019-10-27 13:58] LABS: Coronavirus 19 IgG Antibody Negative (Negative); Coronavirus 19 IgM Antibody Negative (Negative)
== END ==
PROVIDERS: Visit Provider Internal Medicine Adolescent Medicine
DX: E78.5 Hyperlipidemia, unspecified (principal); I10 Essential (primary) hypertension; R05 Cough; Z87.39 Personal history of other diseases of the musculoskeletal system and connective tissue
CPT/HCPCS: 36415; 80053; 80061; 84550; 86328

== ENCOUNTER → 2019-11-26 12:33 | Outpatient (CLI) | payer MEDICARE, SELFPAY ==
--- NOTE | 2019-11-26 | CT_ITS ---
PROCEDURE: CT ABDOMEN PELVIS W CON CLINICAL INDICATION: LUQ ABD PAIN, LLQ ABD TENDERNESS, DYSPEPSIA COMPARISON: ABDPELW CT abdomen pelvis w con from 07/05/2018 TECHNIQUE: IV Contrast: 75ML OPTIRAY 350 Oral Contrast None Axial images obtained with sagittal and coronal reformats. All CT scans at the facility use one or more dose reduction, viz: automated exposure control, ma/kV adjustment per patient size (including targeted exams where dose is matched to indication, i.e. head), or iterative reconstruction technique. FINDINGS: LOWER THORAX: Lung bases: No acute finding. There is minimal calcified scarring in the right lung. ABDOMEN & PELVIS: Hepatobiliary: There is mildly decreased attenuation of the liver, consistent with mild/moderate steatosis. The gallbladder is surgically absent. Biliary ductal system is unremarkable. Pancreas: There is diffuse mild glandular atrophy. No demonstrated pancreatic mass or cyst. Spleen: The spleen is not enlarged. There is a small accessory splenule. A small calcified granuloma is seen. Adrenals: The adrenal glands are normal. Kidneys, ureters and bladder: Both kidneys have a normal size and morphology. There is no hydronephrosis. Both ureters have normal course and caliber. The urinary bladder is partially empty. No ureteral or bladder calculi are identified. Gastrointestinal: The stomach and small bowel are normal with no obstruction or inflammation. There is descending colonic diverticulosis without evidence of acute diverticulitis. No secondary sign of acute appendicitis is seen. Reproductive organs: Borderline enlarged prostate gland. Unremarkable seminal vesicles. Lymphatic system: No significant adenopathy demonstrated within the abdomen/pelvis. Vasculature: Normal caliber abdominal aorta. Peritoneum: No free fluid, free air or evidence of inflammation demonstrated. Abdominal wall and musculoskeletal: Unremarkable soft tissues. Moderate disc degenerative disease changes with vacuum gas is seen at L5-S1. No acute bony abnormality noted. IMPRESSION: 1. No acute abnormality noted in the abdomen/pelvis. 2. Neither kidney shows calculi or evidence of hydronephrosis. 3. Demonstrated descending colonic diverticulosis without evidence of acute diverticulitis. Dictated by: Jarrod Harding 11/26/2019 15:53 Electronically signed by Jarrod Harding in [place] 11/26/2019 15:53
[2019-11-26 13:00] LABS: Basophils # 0.1 K/mm3 (0-0.2); Basophils % 0.8 % (0.1-2.0); Eosinophils # 0.1 K/mm3 (0.0-0.4); Eosinophils % 1.8 % (0.1-12.0); Hematocrit 44.6 % (42.0-52.0); Hemoglobin 15.3 g/dL (14.1-18.0); Lymphocytes # 1.2 K/mm3 (0.7-4.5); Lymphocytes % 16.6 % (10-50); Mean Corpuscular HGB Conc 34.3 g/dL (31.8-35.4); Mean Corpuscular Volume 90.4 fl (80-94); Mean Platelet Volume 7.4 fl (7.4-10.4); Monocytes # 0.4 K/mm3 (0.1-1.0); Monocytes % 5.9 % (1.7-9.3); Neutrophils # 5.3 K/mm3 (1.8-7.8); Neutrophils % 74.8 % (37.0-80.0); Platelet Count 271 K/mm3 (142-424); Red Blood Count 4.93 M/mm3 (4.60-6.20); Red Cell Distribution Width 14.3 % (11.5-17.5); White Blood Count 7.1 K/mm3 (4.8-10.8)
[2019-11-26 13:04] LABS: Chloride 104 mmol/L (98-107); Potassium 3.8 mmoL/L (3.5-5.1); Sodium 141 mmol/L (136-145)
[2019-11-26 13:07] LABS: Alanine Aminotransferase 18 U/L (12-78); Alkaline Phosphatase 59 U/L (38-126); Amylase 53 U/L (30-110); Anion Gap 11.8 mEq/L (5-15); Aspartate Amino Transferase 29 U/L (17-59); Bilirubin,Total 0.8 mg/dl (0.2-1.3); Blood Urea Nitrogen 14 mg/dl (9-20); Carbon Dioxide 29 mmol/L (22.0-30.0); Estimated Glomerular Filt Rate 76 ml/min (>60); GFR (African American) 93 ML/MIN (>60)
[2019-11-26 13:08] LABS: Albumin Level 4.1 g/dl (3.5-5.0); Albumin/Globulin Ratio 1.5 (1.1-1.8); Calcium 9.1 mg/dl (8.4-10.2); Globulin 2.8 g/dL (1.3-3.2); Glucose 83 mg/dl (74-100); Lipase 40 U/L (23-300); Total Protein,Serum 6.9 g/dl (6.3-8.2)
== END ==
PROVIDERS: PCP Internal Medicine Adolescent Medicine; Visit Provider Nurse Practitioner Family
DX: R10.12 Left upper quadrant pain (principal); R10.13 Epigastric pain; R10.814 Left lower quadrant abdominal tenderness
CPT/HCPCS: 36415; 74177; 80053; 82150; 83690; 85025; Q9967

== ENCOUNTER → 2020-04-28 10:59 | Outpatient (CLI) | payer MEDICARE, SELFPAY ==
--- NOTE | 2020-04-28 11:23 | CT_ITS ---
PROCEDURE: CT ABDOMEN PELVIS WO/W CON Referring Doctor: Ryan Meraz Patient Age:60Y CLINICAL INDICATION: BLOATING, SLOW TRANSIT CONSTIPATION, DIVERTICULITIS History of bowel surgery as elementary school COMPARISON: CT ABDPELW CT abdomen pelvis w con from 01/05/[address] ABDOMEN PELVIS W CON from 11/26/2019 TECHNIQUE: IV Contrast: 75ML Isovue 370 Oral Contrast 20ml Gastroview Axial images obtained with sagittal and coronal reformats. All CT scans at the facility use one or more dose reduction, viz: automated exposure control, ma/kV adjustment per patient size (including targeted exams where dose is matched to indication, i.e. head), or iterative reconstruction technique. FINDINGS: Lower thorax: No acute finding the lungs are clear ABDOMEN: Liver: No masses or biliary dilatation. Mild diffuse fatty changes liver Gallbladder: Surgically removed. Common duct normal Pancreas: No masses or peripancreatic fluid collections. Spleen: unremarkable Adrenals: unremarkable Kidneys/ureters: No urinary tract calculi nor obstruction minimal stranding about both kidneys similar to previous studies ureters unremarkable Urinary bladder. Borderline wall thickening. Prostate normal size no fluid pelvis 67 -----GI tract- Oral contrast with good progression through the small bowel to the right colon by 90 minutes No bowel dilatation or obstruction. But no inflammatory changes Stomach satisfactory upper normal wall wall thickness similar to previous study most likely merely due to lack of distension-duodenal loop normal anatomy Small-bowel bowel: Nondistended. No obvious mass or thickening. Large bowel. Moderate stool, throughout large bowel. Colonic diverticulosis. Diverticula most numerous extensive the sigmoid colon with scattered diverticula elsewhere left colon transverse colon. No evidence of diverticulitis on this scan Peritoneum: No abnormal fluid collections. No obvious inflammatory changes. No free air. Lymph nodes: No enlarged lymph nodes apparent. Vasculature: No evidence of abdominal aortic aneurysm. No retroperitoneal hemorrhage evident. Bones: No acute fracture degenerative changes lower L-spine manifest mainly by hypertrophic facet changes Soft tissue: Generous subcutaneous adipose particularly towards the lower abdomen. Also generous intraperitoneal adipose.. IMPRESSION: No acute findings in the abdomen or pelvis.. No significant change since previous study No bowel dilatation or obstruction Colonic diverticulosis. No diverticulitis evident .. Dictated by: Mark Burr MD 04/28/2020 14:08 Mark Burr MD in [facility] 04/28/2020 14:08
[2020-04-28 11:35] LABS: Alanine Aminotransferase 19 U/L (12-78); Albumin Level 4.4 g/dl (3.5-5.0); Albumin/Globulin Ratio 1.5 (1.1-1.8); Alkaline Phosphatase 62 U/L (38-126); Anion Gap 10.7 mEq/L (5-15); Aspartate Amino Transferase 32 U/L (17-59); Bilirubin,Total 0.6 mg/dl (0.2-1.3); Blood Urea Nitrogen 18 mg/dl (9-20); Calcium 9.7 mg/dl (8.4-10.2); Carbon Dioxide 30 mmol/L (22.0-30.0); Chloride 103 mmol/L (98-107); Estimated Glomerular Filt Rate 62 ml/min (>60); GFR (African American) 75 ML/MIN (>60); Globulin 2.9 g/dL (1.3-3.2); Glucose 96 mg/dl (74-100); Potassium 4.7 mmoL/L (3.5-5.1); Sodium 139 mmol/L (136-145); Total Protein,Serum 7.3 g/dl (6.3-8.2)
== END ==
PROVIDERS: PCP Internal Medicine Adolescent Medicine; Visit Provider Internal Medicine Adolescent Medicine
DX: K57.92 Diverticulitis of intestine, part unspecified, without perforation or abscess without bleeding (principal); K59.01 Slow transit constipation; R14.0 Abdominal distension (gaseous)
CPT/HCPCS: 36415; 74178; 80053; Q9967

== ENCOUNTER → 2020-06-06 09:51 | Outpatient (CLI) | payer MEDICARE, SELFPAY ==
--- NOTE | 2020-06-06 09:54 | FL_ITS ---
PROCEDURE: FL BARIUM SWALLOW CLINICAL INDICATION: difficulty swallowing COMPARISON: No exams were available for comparison TECHNIQUE: In the upright position the patient was observed to swallow barium in both the AP and lateral view. The cervical esophagus was examined under fluoroscopy with images obtained. The patient was then placed prone in the right anterior oblique position and was observed to swallow barium with Valsalva technique . FLUOROSCOPY TIME: Fluoroscopy time: 48 seconds FINDINGS: There was no evidence of aspiration. There was normal peristalsis. No filling defects or mucosal abnormalities. No masses or strictures. No hiatal hernia. IMPRESSION: Negative barium swallow. Dictated by: Navarro Ko MD 06/06/2020 12:33 Navarro Ko MD in [facility] 06/06/2020 12:33
== END ==
PROVIDERS: PCP Internal Medicine Adolescent Medicine; Visit Provider Surgery
DX: R13.10 Dysphagia, unspecified (principal)
CPT/HCPCS: 74220

== ENCOUNTER 2020-06-08 10:23 | Emergency (ER) | payer MEDICARE, SELFPAY ==
[2020-06-08 10:24] VITALS: BP 154/87; PULSE 71; RESP 18; TEMP 36.6; O2SAT 98; BMI 33.9
--- NOTE | 2020-06-08 10:37 | HMH.EDABDPAI ---
ED Disposition Clinical Impression: Pancreatic lesion Abdominal pain Qualifiers: Abdominal location: left upper quadrant Qualified Code(s): R10.12 - Left upper quadrant pain Disposition: Home, Self-Care Condition on Discharge: Good Instructions: DI for Acute Pain -- Adult Referrals: Ryan Meraz MD [Primary Care Provider] - 3 days Time of Disposition: 13:08 - Critical Care Critical Care Time: No Attestation: On 06/08/20, the high probability of a clinically significant, sudden or life threatening deterioration of the following system(s) required my full and direct attention, intervention and personal management. The time I documented below is in addition to time spent performing reported procedures but includes the following listed in this critical care notation. Medical Decision Making - Medical Records Medical records reviewed: Yes: I reviewed the patient's medical records. - Vijay Inquiry Pt receiving controlled substance: No Vital Signs: 06/08/20 10:24 06/08/20 11:09 Temperature 97.9 F Temperature Source Oral Pulse Rate [Right Radial] 71 62 Respiratory Rate 18 Blood Pressure [Right Arm] 154/87 H 144/99 H Blood Pressure Mean [Right Arm] 109 114 Blood Pressure Source [Right Arm] Automatic Cuff Automatic Cuff Blood Pressure Position [Right Arm] Sitting Sitting 02 Sat by Pulse Oximetry 98 96 Oxygen Delivery Method Room Air Room Air - Lab Data Lab results reviewed: Yes: I reviewed the patient's lab results. Lab Results 06/08/20 11:40: WBC 6.9, RBC 4.76, Hgb 14.1, Hct 43.7, MCV 91.8, MCH 29.6, MCHC 32.2, RDW 14.6, Plt Count 243, MPV 7.1 L, Neut % (Auto) 64.7, Lymph % (Auto) 26.0, [place] % (Auto) 5.2, Eos % (Auto) 3.0, Baso % (Auto) 1.1, Neut # (Auto) 4.4, Lymph # (Auto) 1.8, [place] # (Auto) 0.4, Eos # (Auto) 0.2, Baso # (Auto) 0.1 06/08/20 11:40: Sodium 142, Potassium 3.9, Chloride 107, Carbon Dioxide 31 H, Anion Gap 7.9, BUN 11, Creatinine 1.10, Estimated Creat Clear 115, Estimated GFR 68, Est GFR ( Amer) 83, Glucose 95, Calcium 9.6 Result diagrams: 06/08/20 11:40 06/08/20 11:40 Orders (Tests/Meds): ED MEDICATIONS Discontinued Medications Generic Name Dose Route Start Last Admin Trade Name Heron PRN Reason Stop Dose Admin Iopamidol 75 ml 06/08/20 12:24 06/08/20 12:25 Iopamidol-370 (76%);100ml Bottle IV 06/08/20 12:25 75 ml ONCE ONE Administration Medical Decision Narrative: 60yo M currently being worked up for abdominal pain presents the emergency department secondary to left sided abdominal pain. Differential diagnosis includes but not limited to: Diverticulitis, enteritis, viral process, constipation, SMA syndrome. Patient is in no acute distress on initial presentation. Given history of severe diverticulitis, CBC and BMP have been ordered along with CT of the M and pelvis with IV contrast. Laboratory studies are unremarkable. CT of the abdomen pelvis with IV contrast reveals a possible 17 mm nodule in the tail of the pancreas. Radiologist recommends nonemergent MRI with and without contrast for further evaluation. These results were conferred to the patient at bedside. He voiced understanding. Patient is appropriate and stable for discharge home at this time. PCP follow-up as soon as possible. Abdominal Pain HPI - General Stated Complaint: severe left side pain Time Seen by Provider: 06/08/20 10:37 Mode of Arrival: Ambulatory Source of Information: Patient - History of Present Illness HPI narrative: 60yo M with past medical history significant atrial fibrillation and ongoing abdominal pain presents the emergency department secondary to left-sided abdominal pain. He states his pain is worse than it has been recently. He denies fever. He has had ongoing nausea and vomiting and that is unchanged. He states he was recently started on Linzess which has improved his bowel function. He also recently underwent barium swallow study which has given him a alejo
[2020-06-08 11:09] VITALS: BP 144/99; PULSE 62; O2SAT 96
--- NOTE | 2020-06-08 11:37 | CT_ITS ---
PROCEDURE: CT ABDOMEN PELVIS W CON CLINICAL INDICATION: h/o diverticulitis Left lower quadrant pain, worsening pain in the left lower quadrant COMPARISON: CT CT ABDOMEN PELVIS W CON from 11/26/[address] ABDOMEN PELVIS WO/W CON from 04/28/2020 TECHNIQUE: IV Contrast: 75ML Isovue 370 Oral Contrast None Axial images obtained with sagittal and coronal reformats. All CT scans at the facility use one or more dose reduction, viz: automated exposure control, ma/kV adjustment per patient size (including targeted exams where dose is matched to indication, i.e. head), or iterative reconstruction technique. FINDINGS: LOWER THORAX: In the right middle lobe there is a 9 mm nodule just anterior to a calcified nodule with fibrotic or atelectatic changes in the right middle lobe unchanged. In the right lung base posteriorly there is an 8 mm nodule which is unchanged.. ABDOMEN & PELVIS: Liver is unremarkable. There is borderline splenomegaly at 13 cm. There has been a prior cholecystectomy. The adrenal glands have an unremarkable appearance. Within the lateral aspect of the tail the pancreas there is a questionable nodule at 17 mm. The remaining pancreas is somewhat fatty replaced.. Cannot exclude the possibility of a solid lesion in the tail the pancreas. Nonemergent MRI without and with gadolinium enhancement may provide further evaluation. Artifact is present from contrast within the large bowel from recent barium swallow. No renal or ureteral calculi. No hydronephrosis. Hyperdense contrast is present within the large bowel throughout its course greater in the ascending colon region creating a mild degree of streak artifact. There is colonic diverticulosis but no evidence of diverticulitis. Prior appendectomy. No acute bony findings. IMPRESSION: 1. No acute finding. Streak artifact is present from barium within the large bowel 2. Colonic diverticulosis but no evidence of diverticulitis. 3. There is a question of a solid nodule within the tail the pancreas at approximately 17 mm. Suggest nonemergent MRI of the pancreas without and with gadolinium enhancement with pancreatic protocol for further evaluation. Dictated by: Navarro Ko MD 06/08/2020 12:51 Navarro Ko MD in [place] 06/08/2020 12:51
[2020-06-08 12:01] LABS: Basophils # 0.1 K/mm3 (0-0.2); Basophils % 1.1 % (0.1-2.0); Eosinophils # 0.2 K/mm3 (0.0-0.4); Hematocrit 43.7 % (42.0-52.0); Hemoglobin 14.1 g/dL (14.1-18.0); Lymphocytes # 1.8 K/mm3 (0.7-4.5); Mean Corpuscular HGB Conc 32.2 g/dL (31.8-35.4); Mean Corpuscular Hemoglobin 29.6 pg (27.0-31.2); Mean Corpuscular Volume 91.8 fl (80-94); Mean Platelet Volume 7.1 fl (7.4-10.4); Monocytes # 0.4 K/mm3 (0.1-1.0); Monocytes % 5.2 % (1.7-9.3); Neutrophils # 4.4 K/mm3 (1.8-7.8); Neutrophils % 64.7 % (37.0-80.0); Platelet Count 243 K/mm3 (142-424); Red Blood Count 4.76 M/mm3 (4.60-6.20); Red Cell Distribution Width 14.6 % (11.5-17.5); White Blood Count 6.9 K/mm3 (4.8-10.8)
[2020-06-08 12:03] LABS: Anion Gap 7.9 mEq/L (5-15); Blood Urea Nitrogen 11 mg/dl (9-20); Calcium 9.6 mg/dl (8.4-10.2); Carbon Dioxide 31 mmol/L (22.0-30.0); Chloride 107 mmol/L (98-107); Creatinine Clearance Estimated 115 mL/min (50-200); Estimated Glomerular Filt Rate 68 ml/min (>60); GFR (African American) 83 ML/MIN (>60); Glucose 95 mg/dl (74-100); Potassium 3.9 mmoL/L (3.5-5.1); Sodium 142 mmol/L (136-145)
[2020-06-08 13:00] VITALS: BP 126/70; PULSE 55; O2SAT 100
[2020-06-08 13:44] VITALS: BP 126/70; PULSE 55; RESP 20; TEMP 36.6; O2SAT 100
== END 2020-06-08 13:50 | disposition home or self-care (01) ==
PROVIDERS: Emergency Provider Family Medicine; PCP Internal Medicine Adolescent Medicine
DX: K86.9 Disease of pancreas, unspecified (principal); I48.0 Paroxysmal atrial fibrillation; I10 Essential (primary) hypertension; I25.2 Old myocardial infarction; I25.10 Atherosclerotic heart disease of native coronary artery without angina pectoris; E78.5 Hyperlipidemia, unspecified; K21.9 Gastro-esophageal reflux disease without esophagitis; Z79.899 Other long term (current) drug therapy
CPT/HCPCS: 74177; 80048; 85025; 99283; Q9967

== ENCOUNTER → 2020-06-14 08:33 | Outpatient (CLI) | payer MEDICARE, SELFPAY ==
[2020-06-14 10:19] LABS: Coronavirus 19 IgG Antibody Positive (Negative); Coronavirus 19 IgM Antibody Negative (Negative)
== END ==
PROVIDERS: Visit Provider Surgery
DX: Z01.818 Encounter for other preprocedural examination (principal); Z20.822 Contact with and (suspected) exposure to COVID-19; Z86.16 Personal history of COVID-19; Z13.810 Encounter for screening for upper gastrointestinal disorder; R13.10 Dysphagia, unspecified; Z12.11 Encounter for screening for malignant neoplasm of colon
CPT/HCPCS: 36415; 86328

== ENCOUNTER 2020-06-16 07:24 | Day surgery (SDC) | payer MEDICARE, SELFPAY ==
[2020-06-14 10:39] VITALS: BMI 33.9
[2020-06-16 07:56] VITALS: BP 144/80; PULSE 68; RESP 18; TEMP 36.7; O2SAT 97
--- NOTE | 2020-06-16 07:56 | PC.NURSE ---
PT REPORTS FALLING AND LANDING ON HIS LOWER BACK THIS MORNING ON HIS FRONT PORCH STEPS R/T ICE AND SNOW. MD AWARE. NO NEW ORDERS GIVEN. PT DECLINED NEEDING TO GO TO ER TO GET CHECKED OUT.
[2020-06-16 08:13] VITALS: O2SAT 97
--- NOTE | 2020-06-16 09:06 | HMH.SCOPE ---
- Procedure: Date: 06/16/20 Patient Date of :: 1960 Procedure Performed:: Esophagogastroduodenoscopy with biopsy Colonoscopy with polypectomy Indications:: Dysphagia (recent barium swallow normal) History of colon polyps Diverticulosis Performing Provider:: Venkat Burton MD Referring Provider:: . Sedation:: Monitored anesthesia care Procedure:: After informed consent was obtained the patient was taken to the endoscopy suite. Sedation ensued after the patient was transferred to the left lateral decubitus position. Pulse, blood pressure, and oxygen saturation were monitored throughout the procedure. The endoscope was advanced beyond the duodenal bulb. Retroflexion within the gastric lumen was accomplished. The gastroscope was carefully removed. Digital rectal exam revealed no significant abnormality. The colonoscope was placed in position. The entire colon was evaluated. The colonoscope was carefully removed and the patient was transferred to recovery in stable condition. Please see findings and specimens below for detail. Findings:: Gastroesophageal junction at 38 cm Mild patchy gastritis Very small sliding hiatal hernia Inlet patch at 23 cm Bowel preparation moderate Significant lack of relaxation Sigmoid diverticulosis Polyps (see specimens) Specimens:: Antral biopsy Small cecal polyp Adjacent right colon polyps (snare) Adjacent hepatic flexure polyps (snare) Recommendations:: Timing of repeat colonoscopy is pending pathology but will likely be around 2-3 years secondary to size/nature/number of polyps, moderate bowel preparation, and lack of relaxation. Evaluation with regard to dysphagia will be ongoing. Complications:: No immediate Estimated blood obtained (mL): 1
[2020-06-16 09:10] VITALS: BP 97/64; PULSE 69; RESP 18; TEMP 36.2; O2SAT 95
[2020-06-16 09:20] VITALS: BP 112/64; PULSE 60; RESP 18; O2SAT 95
[2020-06-16 09:29] VITALS: BP 112/53; PULSE 65; RESP 18; O2SAT 100
[2020-06-16 09:40] VITALS: BP 133/88; PULSE 65; RESP 18; O2SAT 100
== END 2020-06-16 09:53 | disposition home or self-care (01) ==
LOC: OUTP 07:26
PROVIDERS: PCP Internal Medicine Adolescent Medicine; Visit Provider Surgery
PROC: 0DJ08ZZ Inspection of Upper Intestinal Tract, Via Natural or Artificial Opening Endoscopic (ICD-10-PCS; CPT 43235; principal; 2020-06-16 08:30)
DX: K29.60 Other gastritis without bleeding (principal); K44.9 Diaphragmatic hernia without obstruction or gangrene; K63.5 Polyp of colon; Z86.010 Personal history of colon polyps; I10 Essential (primary) hypertension; E78.5 Hyperlipidemia, unspecified; I48.91 Unspecified atrial fibrillation; I25.2 Old myocardial infarction; Z88.8 Allergy status to other drugs, medicaments and biological substances; Z79.82 Long term (current) use of aspirin; Z79.899 Other long term (current) drug therapy
CPT/HCPCS: 43239; 45380; 45385; 88305; 96372

== ENCOUNTER → 2020-06-22 09:12 | Outpatient (CLI) | payer MEDICARE, SELFPAY ==
[2020-06-22 10:17] LABS: Blood Urea Nitrogen 9 mg/dl (9-20); Estimated Glomerular Filt Rate 68 ml/min (>60); GFR (African American) 83 ML/MIN (>60)
== END ==
PROVIDERS: Visit Provider Internal Medicine Adolescent Medicine
DX: R10.12 Left upper quadrant pain (principal)
CPT/HCPCS: 36415; 82565; 84520

== ENCOUNTER → 2020-06-23 08:35 | Outpatient (CLI) | payer MEDICARE, SELFPAY ==
--- NOTE | 2020-06-23 08:41 | MR_ITS ---
PROCEDURE: MR ABDOMEN WO/W CON CLINICAL INDICATION: EVALUATE PANCREAS Abnormal CT: question of lesion on tail of pancreas. Hx recurrent pancreatitis and left side pain. COMPARISON: CT ABDPELW CT abdomen pelvis w con from 03/21/[address] abdomen pelvis w con from 07/05/[address] ABDOMEN PELVIS W CON from 06/08/2020 TECHNIQUE: Routine multiplanar multi echo sequences are performed without the and gadolinium enhancement. FINDINGS: The liver and spleen have an unremarkable appearance. There is a splenule present measuring [address] scan demonstrated some lobularity of the pancreatic tail. There are several small cyst within the pancreas including a 6 mm cyst in the body of the pancreas, a 6 mm cystic lesion in the tail the pancreas anteriorly the, 4 mm hyperintense nodule which may be due to cyst in the tail the pancreas posteriorly. On the coronal T2 weighted images there is a 9 mm hyperintensity in the tail the pancreas. This is not well demonstrated on the axial images. There are numerous small cystic areas within the head of the pancreas better demonstrated on the MRCP the largest measuring approximately 1 cm. A few of the cysts do appear to connect to the biliary tree. Motion artifact somewhat obscures fine detail of the pancreas. No common duct stone or biliary obstructing lesion evident. There are post cholecystectomy changes. IMPRESSION: There are numerous small cystic lesions of the pancreas. There is are most obvious on the MRCP images most numerous in the pancreatic head but also in the body and tail the pancreas.. Differential diagnosis would include simple pancreatic cyst or cystic pancreatic neoplasm/IPMN. Recommend 3 month MRI follow-up to confirm short term stability. Gastroenterology consult may also provide further evaluation. Dictated by: Navarro Ko MD 06/27/2020 11:19 Navarro Ko MD in [place] 06/27/2020 11:19
== END ==
PROVIDERS: PCP Internal Medicine Adolescent Medicine; Visit Provider Internal Medicine Adolescent Medicine
DX: R10.12 Left upper quadrant pain (principal)
CPT/HCPCS: 74183; 76376; A9576

== ENCOUNTER 2020-07-16 12:59 | Emergency (ER) | payer MEDICARE, SELFPAY ==
[2020-07-16 13:00] VITALS: BP 151/98; PULSE 63; RESP 20; TEMP 36.6; O2SAT 97; BMI 33.3
--- NOTE | 2020-07-16 13:21 | HMH.EDUTC ---
[facility] Disposition Clinical Impression: Headache Qualifiers: Headache type: unspecified Headache chronicity pattern: unspecified pattern Intractability: not intractable Qualified Code(s): R51.9 - Headache, unspecified Disposition: Still a Patient Condition on Discharge: Good Referrals: Ryan Meraz MD [Primary Care Provider] - Time of Disposition: 13:34 Medical Decision Making - Vijay Inquiry Pt receiving controlled substance: No Vijay was queried for this patient: No Vital Signs: 07/16/20 13:00 Temperature 97.9 F Temperature Source Oral Pulse Rate [Right Brachial] 63 Respiratory Rate 20 Blood Pressure [Right Arm] 151/98 H Blood Pressure Mean [Right Arm] 115 Blood Pressure Source [Right Arm] Automatic Cuff Blood Pressure Position [Right Arm] Sitting 02 Sat by Pulse Oximetry 97 Oxygen Delivery Method Room Air Medical Decision Narrative: Patient reports that he fell about 3 weeks ago and hit his lower back area and neck on wooden steps States that he did not seek medical treatment at that time States that he had a large hematoma on his lower back and that has since gone away but about 3 days ago started having severe pain in the back of his head that feels like it goes through his head and behind his eyes Reports he has had headaches in the past but this is worse headache of his life State that headache worsens when he lays down and at times with walking Due to complaint of worse headache of life recommended transfer to the ED for further evaluation and testing and patient agreed Called ED spoke with staff and patient was moved to ER to room 8 for further evaluation and treatment [facility] HPI - General Stated complaint: headache, nausea Time Seen by Provider: 07/16/20 13:23 Mode of Arrival: Ambulatory Source of Information: Patient Limitations: No Limitations Description of Symptoms (Recalled from Triage Doc. by RN): PATIENT C/O LOWER BACK, NECK, SHOULDER, AND POSTERIOR HEAD PAIN X 3 DAYS. HE REPORTS APPROX 3 WEEKS AGO HE SLID OFF OF A PORCH AND HIT HIS LOWER BACK AND HEAD/NECK AREA ON WOODEN STEPS. STATES THE LOWER BACK PAIN HAS BEEN CONSISTANT SINCE THEN, BUT THE NECK/HEAD PAIN STARTED 3 DAYS AGO AND SAYS IT'S SEVERE AND THE WORSE HEADACHE HE'S EVER HAD. HEENT Symptoms (Recalled from RN notes): Yes Resp Symptoms (Recalled from RN notes): No Skin Symptoms (Recalled from RN notes): No MS Symptoms (Recalled from RN notes): No Functional Status (Recalled from RN notes): WNL - History of Present Illness Provider Complaint: Patient state that about 3 weeks ago he slipped and fell on his porch and landed on his back on the steps States that he hit his lower back and neck area State that he had a large hematoma on his lower back area and that has since went away but he is still having some soreness and pain. States that he has been sore in his neck and shoulder area, State that about 3 days ago he started having pain in the back of his head that feels like it goes through his head into the back of his eyes, States that it is the worse headache of his life States that pain is pulsating and worse when he lays down or walks Denies vision changes. State that he has taken several over the counter medications for it and nothing has worked State that he has had some headaches in the past but nothing like or as bad as this one. States that back of head tender when he touches it - Related Data Home Medications Medication Instructions Recorded Confirmed clonazePAM [Klonopin 0.5mg tablet] 0.5 mg PO DAILY 10/02/17 06/22/20 aspirin 81 mg tablet,delayed 81 mg PO DAILY 04/15/18 06/22/20 release allopurinoL [Zyloprim] 100 mg PO BID 07/05/18 06/22/20 Colchicine [Colcrys 0.6mg tablet] 0.6 mg PO BIDP PRN 10/06/18 06/22/20 Pantoprazole Sodium [Protonix 40mg 40 mg PO BID 10/06/18 06/22/20 tablet] Rosuvastatin Calcium 20 mg PO HS 10/06/18 06/22/20 apixaban 5 mg tablet 5 mg PO BID tab 05/05/19 06/22/20 lisinopril 10 mg table
[2020-07-16 13:33] VITALS: BP 161/108; PULSE 62; RESP 18; TEMP 36.7; O2SAT 99; BMI 33.6
--- NOTE | 2020-07-16 13:35 | HMH.EDGENADL ---
ED Disposition Clinical Impression: Headache Qualifiers: Headache type: unspecified Headache chronicity pattern: unspecified pattern Intractability: not intractable Qualified Code(s): R51.9 - Headache, unspecified Disposition: Home, Self-Care Condition on Discharge: Good Instructions: DI for Headache Additional Instructions: [place] for pain. Phenergan for nausea and vomiting. Additional instructions for HEADACHE: See your physician as soon as possible for further evaluation. Return immediately if worsening headache, vomiting, problems with vision or speech, fever, numbness or weakness of the extremities, neck pain or stiffness. Prescriptions: Hydrocod/Acet 5/325 mg [[place] 5/325mg tablet] 1 tab PO Q6HP PRN #8 tab PRN Reason: Pain Transmission Status: Received by [place] [id number] Promethazine HCl [Phenergan 25mg tab] 25 mg PO Q6HP PRN #8 tab PRN Reason: Nausea And Vomiting Transmission Status: Pending to [place] [id number] Referrals: Ryan Meraz MD [Primary Care Provider] - - Critical Care Critical Care Time: No Attestation: On 07/16/20, the high probability of a clinically significant, sudden or life threatening deterioration of the following system(s) required my full and direct attention, intervention and personal management. The time I documented below is in addition to time spent performing reported procedures but includes the following listed in this critical care notation. Medical Decision Making - Vijay Inquiry Pt receiving controlled substance: Yes Vijay was queried for this patient: Yes Risks and benefits of using a controlled substance: were not discussed with pt by me Vital Signs: 07/16/20 13:00 07/16/20 13:33 07/16/20 13:43 Temperature 97.9 F 98.1 F Temperature Source Oral Oral Pulse Rate 52 L Pulse Rate [Right Brachial] 63 62 Respiratory Rate 20 18 Blood Pressure 155/98 H Blood Pressure [Right Arm] 151/98 H 161/108 H Blood Pressure Mean [Right Arm] 115 125 Blood Pressure Source [Right Arm] Automatic Cuff Blood Pressure Position [Right Arm] Sitting 02 Sat by Pulse Oximetry 97 99 95 Oxygen Delivery Method Room Air 07/16/20 13:45 Temperature Temperature Source Pulse Rate 76 Pulse Rate [Right Brachial] Respiratory Rate 18 Blood Pressure 123/71 Blood Pressure [Right Arm] Blood Pressure Mean [Right Arm] Blood Pressure Source [Right Arm] Blood Pressure Position [Right Arm] 02 Sat by Pulse Oximetry 99 Oxygen Delivery Method - Lab Data Lab Results 07/16/20 13:50: WBC 6.1, RBC 5.00, Hgb 14.9, Hct 44.2, MCV 88.5, MCH 29.7, MCHC 33.6, RDW 14.5, Plt Count 279, MPV 7.5, Neut % (Auto) 63.5, Lymph % (Auto) 26.0, [place] % (Auto) 6.9, Eos % (Auto) 2.5, Baso % (Auto) 1.1, Neut # (Auto) 3.9, Lymph # (Auto) 1.6, [place] # (Auto) 0.4, Eos # (Auto) 0.2, Baso # (Auto) 0.1 07/16/20 13:50: Sodium 139, Potassium 3.9, Chloride 106, Carbon Dioxide 28, Anion Gap 8.9, BUN 13, Creatinine 1.10, Estimated Creat Clear 114, Estimated GFR 68, Est GFR ( Amer) 83, Glucose 91, Calcium 9.6 Result diagrams: 07/16/20 13:50 07/16/20 13:50 Orders (Tests/Meds): ED MEDICATIONS Discontinued Medications Generic Name Dose Route Start Last Admin Trade Name Heron PRN Reason Stop Dose Admin Morphine Sulfate 4 mg 07/16/20 13:44 07/16/20 14:07 Morphine 4mg/Ml Syringe IV 07/16/20 13:45 Not Given ONCE ONE Ondansetron HCl 4 mg 07/16/20 13:44 07/16/20 14:07 Ondansetron 4mg/2ml Vial IV 07/16/20 13:45 4 mg ONCE ONE Administration - CT Data CT Scan: Head Time Received: 14:[address] Reviewed: Yes: I have viewed the radiologist's interpretation Findings Narrative: PROCEDURE: CT HEAD/BRAIN WO CON CLINICAL INDICATION: headache COMPARISON: CT CT HEAD/BRAIN WO CON from 05/09/2019 TECHNIQUE: Axial images obtained. All CT scans at the facility use one or more dose reduction, viz: automated exposure control, ma/kV adjustment per
[2020-07-16 13:43] VITALS: BP 155/98; PULSE 52; O2SAT 95
--- NOTE | 2020-07-16 13:43 | CT_ITS ---
PROCEDURE: CT HEAD/BRAIN WO CON CLINICAL INDICATION: headache COMPARISON: CT CT HEAD/BRAIN WO CON from 05/09/2019 TECHNIQUE: Axial images obtained. All CT scans at the facility use one or more dose reduction, viz: automated exposure control, ma/kV adjustment per patient size (including targeted exams where dose is matched to indication, i.e. head), or iterative reconstruction technique. FINDINGS: No midline shift, mass effect, intracranial hemorrhage, hydrocephalus, or extra-axial fluid collection is evident. The calvarium has an unremarkable appearance. No mastoid effusion. No sinus air-fluid level. IMPRESSION: No acute intracranial finding Dictated by: Navarro Ko MD 07/16/2020 14:07 Navarro Ko MD in [place] 07/16/2020 14:07
[2020-07-16 13:45] VITALS: BP 123/71; PULSE 76; RESP 18; O2SAT 99
--- NOTE | 2020-07-16 14:00 | PC.NURSE ---
PATIENT STATED HE CAN CALL FOR A RIDE. KAREN DINH UNABLE TO GIVE MORPHINE DUE TO PATIENT DRIVING HIMSELF TO ED PER HOSPITAL POLICY
[2020-07-16 14:15] LABS: Basophils # 0.1 K/mm3 (0-0.2); Basophils % 1.1 % (0.1-2.0); Eosinophils # 0.2 K/mm3 (0.0-0.4); Eosinophils % 2.5 % (0.1-12.0); Hematocrit 44.2 % (42.0-52.0); Hemoglobin 14.9 g/dL (14.1-18.0); Lymphocytes # 1.6 K/mm3 (0.7-4.5); Mean Corpuscular HGB Conc 33.6 g/dL (31.8-35.4); Mean Corpuscular Hemoglobin 29.7 pg (27.0-31.2); Mean Corpuscular Volume 88.5 fl (80-94); Mean Platelet Volume 7.5 fl (7.4-10.4); Monocytes # 0.4 K/mm3 (0.1-1.0); Monocytes % 6.9 % (1.7-9.3); Neutrophils # 3.9 K/mm3 (1.8-7.8); Neutrophils % 63.5 % (37.0-80.0); Platelet Count 279 K/mm3 (142-424); Red Cell Distribution Width 14.5 % (11.5-17.5); White Blood Count 6.1 K/mm3 (4.8-10.8)
[2020-07-16 14:37] LABS: Chloride 106 mmol/L (98-107); Potassium 3.9 mmoL/L (3.5-5.1); Sodium 139 mmol/L (136-145)
[2020-07-16 14:40] LABS: Blood Urea Nitrogen 13 mg/dl (9-20); Creatinine Clearance Estimated 114 mL/min (50-200); Estimated Glomerular Filt Rate 68 ml/min (>60); GFR (African American) 83 ML/MIN (>60)
[2020-07-16 14:41] LABS: Anion Gap 8.9 mEq/L (5-15); Calcium 9.6 mg/dl (8.4-10.2); Carbon Dioxide 28 mmol/L (22.0-30.0); Glucose 91 mg/dl (74-100)
[2020-07-16 14:54] VITALS: BP 123/71; PULSE 76; RESP 18; TEMP 36.7; O2SAT 99
[2020-07-16 15:04] VITALS: BP 131/80; PULSE 60; RESP 18; TEMP 36.8; O2SAT 97
== END 2020-07-16 15:00 | disposition home or self-care (01) ==
LOC: UTC 13:01 → ER 13:23
PROVIDERS: Emergency Provider Emergency Medicine; PCP Internal Medicine Adolescent Medicine
DX: R51.9 Headache, unspecified (principal); M54.5 Low back pain; W10.9XXA Fall (on) (from) unspecified stairs and steps, initial encounter; Y92.019 Unspecified place in single-family (private) house as the place of occurrence of the external cause; I48.91 Unspecified atrial fibrillation; K21.9 Gastro-esophageal reflux disease without esophagitis; I25.10 Atherosclerotic heart disease of native coronary artery without angina pectoris; I10 Essential (primary) hypertension; E78.5 Hyperlipidemia, unspecified; I25.2 Old myocardial infarction; M79.7 Fibromyalgia; Z79.899 Other long term (current) drug therapy
CPT/HCPCS: 70450; 80048; 85025; 96374; 96375; 99283; J2405

== ENCOUNTER → 2020-07-18 16:32 | Outpatient (CLI) | payer MEDICARE, SELFPAY ==
--- NOTE | 2020-07-18 16:35 | XR_ITS ---
PROCEDURE: XR SACRUM COCCYX MIN 2V CLINICAL INDICATION: ACUTE RT SIDED LOW BACK PAIN W/O SCIATICA COMPARISON: CT CT ABDOMEN PELVIS W CON from 06/08/2020 FINDINGS: There is mild posterior displacement of the coccyx by approximately 4 mm which was not present on the previous CT scan 06/08/2020. No fractures are identified. The SI joints have an unremarkable appearance. IMPRESSION: Mild posterior displacement of the coccyx presumed posttraumatic not readily apparent on the previous CT scan Dictated by: Navarro Ko MD 07/19/2020 06:35 Navarro Ko MD in [place] 07/19/2020 06:35
== END ==
PROVIDERS: PCP Internal Medicine Adolescent Medicine; Visit Provider Internal Medicine Adolescent Medicine
DX: M54.5 Low back pain (principal)
CPT/HCPCS: 72220

== ENCOUNTER → 2020-08-02 09:30 | Outpatient (CLI) | payer MEDICARE, SELFPAY ==
[2020-08-02 14:31] LABS: Alanine Aminotransferase 12 U/L (12-78); Albumin Level 3.9 g/dl (3.5-5.0); Albumin/Globulin Ratio 1.6 (1.1-1.8); Alkaline Phosphatase 67 U/L (38-126); Amylase 45 U/L (30-110); Anion Gap 12.2 mEq/L (5-15); Aspartate Amino Transferase 23 U/L (17-59); Bilirubin,Total 0.5 mg/dl (0.2-1.3); Blood Urea Nitrogen 14 mg/dl (9-20); Calcium 9.4 mg/dl (8.4-10.2); Carbon Dioxide 25 mmol/L (22.0-30.0); Chloride 107 mmol/L (98-107); Estimated Glomerular Filt Rate 76 ml/min (>60); GFR (African American) 92 ML/MIN (>60); Globulin 2.5 g/dL (1.3-3.2); Glucose 90 mg/dl (74-100); Lipase 66 U/L (23-300); Potassium 4.2 mmoL/L (3.5-5.1); Sodium 140 mmol/L (136-145); Total Protein,Serum 6.4 g/dl (6.3-8.2)
[2020-08-03 17:22] LABS: CA 19-9 5 U/mL (0-35)
== END ==
PROVIDERS: Visit Provider Internal Medicine Gastroenterology
DX: K86.1 Other chronic pancreatitis (principal); K86.2 Cyst of pancreas; Z86.010 Personal history of colon polyps
CPT/HCPCS: 36415; 80053; 82150; 82378; 83690; 86316

== ENCOUNTER 2020-08-27 16:39 | Emergency (ER) | payer MEDICARE, SELFPAY ==
[2020-08-27 16:41] VITALS: BP 152/99; PULSE 69; RESP 20; TEMP 36.5; O2SAT 98; BMI 33.2
[2020-08-27 17:20] VITALS: BMI 33.2
--- NOTE | 2020-08-27 17:21 | CT_ITS ---
PROCEDURE INFORMATION: Exam: CT Abdomen And Pelvis With Contrast Exam date and time: 08/27/20 05:21 PM Age: 60 years old Clinical indication: Abdominal pain; Localized; Prior surgery; Surgery date: 6+ months; Surgery type: Hernia; Patient HX: Left abd pain TECHNIQUE: Imaging protocol: Computed tomography of the abdomen and pelvis with contrast. Radiation optimization: All CT scans at this facility use at least one of these dose optimization techniques: automated exposure control; mA and/or kV adjustment per patient size (includes targeted exams where dose is matched to clinical indication); or iterative reconstruction. Contrast material: ISOVUE; Contrast volume: 75 ml; Contrast route: IV; COMPARISON: CT ABDOMEN PELVIS W CON 06/08/20 12:20 PM FINDINGS: Tubes, catheters and devices: None noted. Lungs: Lung bases appear clear. Heart: No significant coronary calcifications. No cardiomegaly. No significant pericardial effusion. Liver: Normal. No mass. Gallbladder and bile ducts: Cholecystectomy. No ductal dilation. Pancreas: Normal. No ductal dilation. Spleen: Normal. No splenomegaly. Adrenal glands: Normal. No mass. Kidneys and ureters: Normal. No hydronephrosis. Stomach and bowel: Colonic diverticulosis without diverticulitis. No obstruction. No mucosal thickening. Appendix: No evidence of appendicitis. Intraperitoneal space: Unremarkable. No free air. No significant fluid collection. Retroperitoneal space: No significant retroperitoneal inflammatory changes are noted. Vasculature: Unremarkable. No abdominal aortic aneurysm. Lymph nodes: Unremarkable. No enlarged lymph nodes. Urinary bladder: Unremarkable as visualized. Reproductive: Unremarkable as visualized. Bones/joints: Vacuum disc L5-S1. No acute fracture. Soft tissues: Unremarkable. IMPRESSION: 1. Colonic diverticulosis without diverticulitis. 2. Cholecystectomy.
[2020-08-27 17:33] LABS: Alanine Aminotransferase 15 U/L (12-78); Albumin Level 4.1 g/dl (3.5-5.0); Albumin/Globulin Ratio 1.6 (1.1-1.8); Alkaline Phosphatase 66 U/L (38-126); Amylase 63 U/L (30-110); Anion Gap 8.1 mEq/L (5-15); Aspartate Amino Transferase 26 U/L (17-59); Bilirubin,Total 0.4 mg/dl (0.2-1.3); Blood Urea Nitrogen 17 mg/dl (9-20); Calcium 9.2 mg/dl (8.4-10.2); Carbon Dioxide 26 mmol/L (22.0-30.0); Chloride 108 mmol/L (98-107); Creatinine Clearance Estimated 112 mL/min (50-200); Estimated Glomerular Filt Rate 68 ml/min (>60); GFR (African American) 83 ML/MIN (>60); Globulin 2.6 g/dL (1.3-3.2); Glucose 97 mg/dl (74-100); Lipase 123 U/L (23-300); Potassium 4.1 mmoL/L (3.5-5.1); Sodium 138 mmol/L (136-145); Total Protein,Serum 6.7 g/dl (6.3-8.2)
[2020-08-27 17:34] LABS: Lactic Acid 0.9 mmol/L (0.7-2.1)
[2020-08-27 17:36] LABS: Basophils % 0.6 % (0.1-2.0); Eosinophils # 0.1 K/mm3 (0.0-0.4); Eosinophils % 1.1 % (0.1-12.0); Hematocrit 42.9 % (42.0-52.0); Hemoglobin 14.4 g/dL (14.1-18.0); Lymphocytes # 1.3 K/mm3 (0.7-4.5); Lymphocytes % 18.9 % (10-50); Mean Corpuscular HGB Conc 33.6 g/dL (31.8-35.4); Mean Corpuscular Hemoglobin 30.1 pg (27.0-31.2); Mean Corpuscular Volume 89.7 fl (80-94); Monocytes # 0.4 K/mm3 (0.1-1.0); Monocytes % 5.2 % (1.7-9.3); Neutrophils # 5.2 K/mm3 (1.8-7.8); Neutrophils % 74.2 % (37.0-80.0); Platelet Count 240 K/mm3 (142-424); Red Blood Count 4.78 M/mm3 (4.60-6.20); Red Cell Distribution Width 14.1 % (11.5-17.5)
--- NOTE | 2020-08-27 17:50 | HMH.EDGENADL ---
ED Disposition Clinical Impression: Left sided abdominal pain Disposition: Home, Self-Care Condition on Discharge: Good Instructions: DI for Acute Abdominal Pain Additional Instructions: Tylenol for pain. Follow-up with your primary care provider next week. Additional instructions for ABDOMINAL PAIN: See your physician as soon as possible for further evaluation. Return immediately if worsening abdominal pain, vomiting, shortness of breath, fever, vomiting of blood or abdominal distention. Referrals: Ryan Meraz MD [Primary Care Provider] - - Critical Care Critical Care Time: No Attestation: On 08/27/20, the high probability of a clinically significant, sudden or life threatening deterioration of the following system(s) required my full and direct attention, intervention and personal management. The time I documented below is in addition to time spent performing reported procedures but includes the following listed in this critical care notation. Medical Decision Making - Vijay Inquiry Pt receiving controlled substance: No Vital Signs: 08/27/20 16:41 Temperature 97.7 F Temperature Source Oral Pulse Rate [Left Radial] 69 Respiratory Rate 20 Blood Pressure [Right Arm] 152/99 H Blood Pressure Mean [Right Arm] 116 Blood Pressure Source [Right Arm] Automatic Cuff Blood Pressure Position [Right Arm] Sitting 02 Sat by Pulse Oximetry 98 Oxygen Delivery Method Room Air - Lab Data Lab Results 08/27/20 17:03: Lactate 0.9 08/27/20 17:03: Amylase 63, Lipase 123 08/27/20 17:03: WBC 7.0, RBC 4.78, Hgb 14.4, Hct 42.9, MCV 89.7, MCH 30.1, MCHC 33.6, RDW 14.1, Plt Count 240, MPV 7.0 L, Neut % (Auto) 74.2, Lymph % (Auto) 18.9, [place] % (Auto) 5.2, Eos % (Auto) 1.1, Baso % (Auto) 0.6, Neut # (Auto) 5.2, Lymph # (Auto) 1.3, [place] # (Auto) 0.4, Eos # (Auto) 0.1, Baso # (Auto) 0.0 08/27/20 17:03: Sodium 138, Potassium 4.1, Chloride 108 H, Carbon Dioxide 26, Anion Gap 8.1, BUN 17, Creatinine 1.10, Estimated Creat Clear 112, Estimated GFR 68, Est GFR ( Amer) 83, Glucose 97, Calcium 9.2, Total Bilirubin 0.4, AST 26, ALT 15, Alkaline Phosphatase 66, Total Protein 6.7, Albumin 4.1, Globulin 2.6, Albumin/Globulin Ratio 1.6 Result diagrams: 08/27/20 17:03 08/27/20 17:03 Orders (Tests/Meds): ORDERS Category Date Time Status Full Resp Panel w/COVID ([facility]) Routine Lab 08/27/20 17:21 Ordered Blood Culture Stat Micro 08/27/20 17:03 Received - CT Data CT Scan: Abdomen, Pelvis Time Received: 19:[address] Reviewed: Yes: I have viewed the radiologist's interpretation Findings Narrative: COMPARISON: CT ABDOMEN PELVIS W CON 06/08/20 12:20 PM FINDINGS: Tubes, catheters and devices: None noted. Lungs: Lung bases appear clear. Heart: No significant coronary calcifications. No cardiomegaly. No significant pericardial effusion. Liver: Normal. No mass. Gallbladder and bile ducts: Cholecystectomy. No ductal dilation. Pancreas: Normal. No ductal dilation. Spleen: Normal. No splenomegaly. Adrenal glands: Normal. No mass. Kidneys and ureters: Normal. No hydronephrosis. Stomach and bowel: Colonic diverticulosis without diverticulitis. No obstruction. No mucosal thickening. Appendix: No evidence of appendicitis. Intraperitoneal space: Unremarkable. No free air. No significant fluid collection. Retroperitoneal space: No significant retroperitoneal inflammatory changes are noted. Vasculature: Unremarkable. No abdominal aortic aneurysm. Lymph nodes: Unremarkable. No enlarged lymph nodes. Urinary bladder: Unremarkable as visualized. Reproductive: Unremarkable as visualized. Bones/joints: Vacuum disc L5-S1. No acute fracture. Soft tissues: Unremarkable. IMPRESSION: 1. Colonic diverticulosis without diverticulitis. 2. Cholecystectomy. General Adult HPI - General Stated complaint: abd pain Time Seen by Provide
[2020-08-27 19:03] VITALS: BP 153/101; PULSE 68; O2SAT 96
[2020-08-27 19:47] VITALS: BP 123/64; PULSE 57; O2SAT 99
[2020-08-27 20:17] VITALS: BP 130/93; PULSE 65; O2SAT 99
[2020-08-27 20:37] VITALS: BP 130/93; PULSE 65; RESP 16; TEMP 36.5; O2SAT 98
== END 2020-08-27 20:42 | disposition home or self-care (01) ==
PROVIDERS: Emergency Provider Emergency Medicine; PCP Internal Medicine Adolescent Medicine
DX: R10.12 Left upper quadrant pain (principal); K86.1 Other chronic pancreatitis; I48.91 Unspecified atrial fibrillation; I25.10 Atherosclerotic heart disease of native coronary artery without angina pectoris; K21.9 Gastro-esophageal reflux disease without esophagitis; I25.2 Old myocardial infarction; I10 Essential (primary) hypertension; E78.5 Hyperlipidemia, unspecified; Z79.899 Other long term (current) drug therapy
CPT/HCPCS: 74177; 80053; 82150; 83605; 83690; 85025; 87040; 99282

== ENCOUNTER → 2020-09-21 13:23 | Outpatient (CLI) | payer MEDICARE, SELFPAY ==
--- NOTE | 2020-09-21 13:23 | CA_ITS ---
APPROVED REPORT EXAM: Comprehensive 2D, Doppler, and color-flow Echocardiogram Broke Man: Rose Mary Geller RVT Ht: 6 ft 0 in Wt: 254lbs BSA: 2.36 BP: 151/74 mmHg Indications: SOA,CAD,HX A-FIB,HX ABLATION,GERD,CM,PALPS,HTN,HLD 2D Dimensions LVOT 2.17 cm (M/F) 1.5-2.5 LA Volume 36.60 mL LA Volume Index 15.50 mL/m2 (M/F) 16-34 M-Mode Dimensions RVDd 3.15 cm (0.9-2.6) LA Diam 4.84 cm (1.9-4.0) LVDd 5.35 cm (3.5-5.7) Ao Diam 3.14 cm (2.0-3.7) LVDs 3.15 cm (3.5-5.7) IVSd 1.63 cm (0.6-1.1) PWd 0.91 cm (0.6-1.1) EF (Teich) 71.50% FS 41.10% EDV (Teich) 138.30 mL TAPSE 1.84 (<1.7) ESV (Teich) 39.40 mL LV Diastology E Decel Time 230.00 (160-240 msec) E/A Ratio 1.0 MED E' 5.30 (< 7 cm/sec) E'/MED E' Ratio 12.38 (>14) LAT E' 6.60 (<10 cm/sec) E/LAT E' Ratio 9.94 (>14) Aortic Valve AO Peak GR. 5.70 mmHg Mitral Valve MV E Max [place]. 66.00 (40-130 cm/s) MV A Velocity 63.00 (40-130 cm/s) E/A Ratio 1.05 MV Decel. Time 230.00 (160-240 ms) MV PHT 67.00 ms Pulmonary Valve PV Peak Velocity 67.00 (50-150 cm/s) Tricuspid Valve TR P. Velocity 265.00 cm/s RAP Estimate 10.00 mmHg RVSP 38.00 mmHg Left Ventricle Left atrium is moderately enlarged, left ventricle is normal size, mild concentric left ventricular hypertrophy, visually estimated ejection fraction 50%, there is marked hypokinesis involving the inferior basal wall, grade 1 diastolic dysfunction seen without tissue Doppler evidence of raise left atrial pressure. Right atrium and right ventricle are mildly enlarged with normal contractility. Aortic Valve Aortic valve is minimally thickened and fibrosed, there is no aortic stenosis or aortic insufficiency. Mitral Valve Mitral valve leaflets are minimally thickened, there is mild mitral regurgitation. Tricuspid Valve Tricuspid grossly normal, there is trace tricuspid regurgitation. Tricuspid regurgitation jet velocity is inadequate for calculation of the right ventricular systolic pressure. Pulmonic Valve Pulmonic valve is poorly visualized. Great Vessels Aortic root is normal size. Pericardium No significant pericardial effusion noted. Conclusion 1. Biatrial enlargement, normal left ventricular size, mild concentric left ventricular hypertrophy, visually estimated ejection fraction 50% with segmental wall motion abnormality described above, grade 1 diastolic dysfunction seen without tissue Doppler evidence of raise left atrial pressure. 2. Mild mitral and trace tricuspid regurgitation. 3. No significant pericardial effusion noted. Electronically signed by : Guillermo Luong, 09/22/2020 16:23:03
== END ==
PROVIDERS: PCP Internal Medicine Adolescent Medicine; Visit Provider Urology
DX: E78.2 Mixed hyperlipidemia (principal); I07.1 Rheumatic tricuspid insufficiency; I11.9 Hypertensive heart disease without heart failure; I25.10 Atherosclerotic heart disease of native coronary artery without angina pectoris; I25.5 Ischemic cardiomyopathy; I34.0 Nonrheumatic mitral (valve) insufficiency; I48.0 Paroxysmal atrial fibrillation; K21.9 Gastro-esophageal reflux disease without esophagitis; Z86.79 Personal history of other diseases of the circulatory system; R94.31 Abnormal electrocardiogram [ECG] [EKG]
CPT/HCPCS: 93306

== ENCOUNTER 2020-11-08 09:08 | Emergency (ER) | payer MEDICARE, SELFPAY ==
[2020-11-08 09:12] VITALS: BP 161/100; PULSE 76; RESP 18; TEMP 36.5; O2SAT 97; BMI 33.2
[2020-11-08 09:33] LABS: UTC Strep Screen (Rapid) Negative (Negative)
--- NOTE | 2020-11-08 09:39 | HMH.EDUTC ---
[facility] [place] Disposition Clinical Impression: Sinusitis Qualifiers: Sinusitis location: frontal Chronicity: acute Recurrence: non-recurrent Qualified Code(s): J01.10 - Acute frontal sinusitis, unspecified Disposition: Home, Self-Care Condition on Discharge: Good Instructions: Sinusitis, DI for Sinusitis Additional Instructions: Drink plenty of fluids. Take tylenol or ibuprofen for pain or fever. Take the medications as directed. Follow up with your regular doctor. GO TO THE ER FOR ANY WORSENING SYMPTOMS Prescriptions: Amoxicillin [Amoxicillin 500mg Tab] 500 mg PO TID 10 Days #30 tab Transmission Status: Received by [place] [id number] methylPREDNISolone [Medrol] 4 mg PO DIRECTED 6 Days #21 tab.[email or web address] Transmission Status: Received by [place] [id number] Benzonatate [Tessalon Perle 100mg Cap] 100 mg PO TIDP PRN #30 cap PRN Reason: Cough Transmission Status: Received by [place] [id number] Referrals: Ryan Meraz MD [Primary Care Provider] - Time of Disposition: 09:59 Medical Decision Making - Medical Records Medical records reviewed: No: I reviewed the patient's medical records. - Vijay Inquiry Pt receiving controlled substance: No Vital Signs: 11/08/20 09:12 11/08/20 10:00 Temperature 97.7 F 98 F Temperature Source Oral Pulse Rate 72 Pulse Rate [Right] 76 Respiratory Rate 18 18 Blood Pressure 151/97 H Blood Pressure [Right Arm] 161/100 H Blood Pressure Mean [Right Arm] 120 02 Sat by Pulse Oximetry 97 - Lab Data Lab Results 11/08/20 09:26: Strep Scn Rapid Clinic Negative Orders (Tests/Meds): ED MEDICATIONS Discontinued Medications Generic Name Dose Route Start Last Admin Trade Name Freq PRN Reason Stop Dose Admin Ceftriaxone Sodium 1 gm 11/08/20 09:40 11/08/20 09:52 Ceftriaxone 1gm Vial IM 11/08/20 09:41 1 gm ONCE ONE Administration Protocol Lidocaine HCl 0 ml 11/08/20 09:40 11/08/20 09:52 Lidocaine 1% 5ml Pf Vial IM 11/08/20 09:41 2.5 ml ONCE ONE Administration Methylprednisolone Sodium Succinate 125 mg 11/08/20 09:45 11/08/20 09:52 Methylprednisolone Sod Succ 125mg Vial IM 11/08/20 09:46 125 mg ONCE ONE Administration ORDERS Category Date Time Status Strep Screen Confirmation Stat Micro 11/08/20 09:[address] [facility] [place] HPI - General Stated complaint: sinus congestion, pain Time Seen by Provider: 11/08/20 09:20 Mode of Arrival: Ambulatory Source of Information: Patient Limitations: No Limitations Description of Symptoms (Recalled from Triage Doc. by RN): pt c/o a sore throat, nasal drainage, sinus pressure and a productive cough with green sputum. HEENT Symptoms (Recalled from RN notes): Yes (sinus pressure and sore throat) Resp Symptoms (Recalled from RN notes): Yes (productive cough with green sputum) Skin Symptoms (Recalled from RN notes): No MS Symptoms (Recalled from RN notes): No Functional Status (Recalled from RN notes): na - History of Present Illness Provider Complaint: He c/o sinus pressure, ear pressure, and a nonproductive cough for the past 3 days. He has a history of getting sinus infections kind of frequently. He denies any shortness of breath, fever and chills. - Related Data Home Medications Medication Instructions Recorded Confirmed allopurinoL [Zyloprim] 100 mg PO BID 07/05/18 09/23/20 Colchicine [Colcrys 0.6mg tablet] 0.6 mg PO BIDP PRN 10/06/18 09/23/20 Pantoprazole Sodium [Protonix 40mg 40 mg PO BID 10/06/18 09/23/20 tablet] Rosuvastatin Calcium 20 mg PO HS 10/06/18 09/23/20 apixaban 5 mg tablet 5 mg PO BID tab 05/05/19 09/23/20 lisinopril 10 mg tablet 20 mg PO BID tab 11/09/19 09/23/20 nebivolol 10 mg tablet 5 mg PO DAILY tab 11/09/19 09/23/20 dicyclomine 20 mg tablet 20 mg PO DAILY tab 03/07/20 09/23/20 dofetilide 500 mcg capsule 250 mcg PO BID cap 03/07/20 09/23/20 clonazepam 0.5 mg tablet 0.5 mg PO DAILY PRN 09/12/20 09/23/20 [id number] 1 cap PO
[2020-11-08 10:00] VITALS: BP 151/97; PULSE 72; RESP 18; TEMP 36.6
== END 2020-11-08 10:05 | disposition home or self-care (01) ==
PROVIDERS: Emergency Provider Nurse Practitioner Family; PCP Internal Medicine Adolescent Medicine
DX: J01.00 Acute maxillary sinusitis, unspecified (principal); I48.0 Paroxysmal atrial fibrillation; K21.9 Gastro-esophageal reflux disease without esophagitis; I25.10 Atherosclerotic heart disease of native coronary artery without angina pectoris; E78.5 Hyperlipidemia, unspecified; I10 Essential (primary) hypertension; I25.2 Old myocardial infarction
CPT/HCPCS: G0463; 87880; 96372; 99202

== ENCOUNTER 2020-11-26 19:52 | Emergency (ER) | payer MEDICARE, SELFPAY ==
[2020-11-26 20:16] VITALS: BP 139/97; PULSE 69; RESP 18; TEMP 36.4; O2SAT 100; BMI 33.2
--- NOTE | 2020-11-26 20:35 | XR_ITS ---
PROCEDURE INFORMATION: Exam: XR Chest Exam date and time: 11/26/2020 8:35 PM Age: 60 years old Clinical indication: Cough; Patient HX: Chest tightness TECHNIQUE: Imaging protocol: XR of the chest. Views: 2 views. COMPARISON: CR XR CHEST PORTABLE 05/30/2019 10:54 PM FINDINGS: Lungs: Unremarkable. No consolidation. Pleural spaces: Unremarkable. No pleural effusion. No pneumothorax. Heart/Mediastinum: Unremarkable. No cardiomegaly. Bones/joints: Unremarkable. IMPRESSION: No acute findings.
[2020-11-26 20:46] VITALS: BP 133/92; PULSE 74; RESP 18; TEMP 36.4
--- NOTE | 2020-11-26 20:46 | HMH.EDUTC ---
[facility] [place] Clinical Impression: Bronchitis Disposition: Home, Self-Care Condition on Discharge: Good Instructions: DI for Acute Bronchitis Additional Instructions: Drink plenty of fluids. Take tylenol for pain or fever. Continue the medications that you are on. Follow up with your regular doctor. GO TO THE ER FOR ANY WORSENING SYMPTOMS Referrals: Ryan Meraz MD [Primary Care Provider] - Time of Disposition: 20:47 Medical Decision Making - Medical Records Medical records reviewed: No: I reviewed the patient's medical records. - Vijay Inquiry Pt receiving controlled substance: No Vital Signs: 11/26/20 20:16 11/26/20 20:46 Temperature 97.5 F L 97.5 F L Temperature Source Oral Pulse Rate 74 Pulse Rate [Left] 69 Respiratory Rate 18 18 Blood Pressure 133/92 H Blood Pressure [Right Arm] 139/97 H Blood Pressure Mean [Right Arm] 111 02 Sat by Pulse Oximetry 100 [facility] [place] HPI - General Stated complaint: cough for 3 weeks Time Seen by Provider: 11/26/20 20:30 Mode of Arrival: Ambulatory Source of Information: Patient Limitations: No Limitations Description of Symptoms (Recalled from Triage Doc. by RN): pt states he has a nonproductive cough and that his lungs feel tight when he coughs. pt was seen by Dr. Claudia Galan. and given symbicort. pt was also covid swabbed at [facility]. but has not received his results yet. HEENT Symptoms (Recalled from RN notes): No Resp Symptoms (Recalled from RN notes): Yes (nonproductive cough) Skin Symptoms (Recalled from RN notes): No MS Symptoms (Recalled from RN notes): No Functional Status (Recalled from RN notes): na - History of Present Illness Provider Complaint: He has a nonproductive cough and his lungs feel tight when he coughs. pt was seen by Dr. Claudia Issa and given symbicort. pt [facility], but the results are not back yet. - Related Data Home Medications Medication Instructions Recorded Confirmed allopurinoL [Zyloprim] 100 mg PO BID 07/05/18 09/23/20 Colchicine [Colcrys 0.6mg tablet] 0.6 mg PO BIDP PRN 10/06/18 09/23/20 Pantoprazole Sodium [Protonix 40mg 40 mg PO BID 10/06/18 09/23/20 tablet] Rosuvastatin Calcium 20 mg PO HS 10/06/18 09/23/20 apixaban 5 mg tablet 5 mg PO BID tab 05/05/19 09/23/20 lisinopril 10 mg tablet 20 mg PO BID tab 11/09/19 09/23/20 nebivolol 10 mg tablet 5 mg PO DAILY tab 11/09/19 09/23/20 dicyclomine 20 mg tablet 20 mg PO DAILY tab 03/07/20 09/23/20 dofetilide 500 mcg capsule 250 mcg PO BID cap 03/07/20 09/23/20 clonazepam 0.5 mg tablet 0.5 mg PO DAILY PRN 09/12/20 09/23/20 [id number] 1 cap PO TID PRN cap 09/23/20 09/23/20 36,000-114,000-180,000 unit capsule,delay rel Previous Rx's Medication Instructions Recorded nitroglycerin 0.4 mg sublingual 0.4 mg SUBLINGUAL Q5-15M PRN #20 08/05/18 tablet tab Promethazine HCl [Phenergan 25mg 25 mg PO Q6HP PRN #8 tab 07/16/20 tab] Amoxicillin [Amoxicillin 500mg Tab] 500 mg PO TID 10 Days #30 tab 11/08/20 Benzonatate [Tessalon Perle 100mg 100 mg PO TIDP PRN #30 cap 11/08/20 Cap] methylPREDNISolone [Medrol] 4 mg PO DIRECTED 6 Days #21 11/08/20 tab.ds.pk Allergies Allergy/AdvReac Type Severity Reaction Status Date / Time hydrochlorothiazide Allergy Verified 11/26/20 20:19 prednisone Allergy Verified 11/26/20 20:19 - Worker's Comp Is this a Worker's Comp case?: No [facility] History - Hepatitis A Screen Drug use history?: No High risk sexual behaviors?: No History of sexually transmitted infection?: No Currently employed?: No Childcare worker?: No Do you have indoor plumbing?: Yes Do you have electricity?: Yes Attestation statement:: This patient has been screened for Hepatitis A risk factors. I have reviewed the patient's past medical history: Yes Medical History: Reports:: Anxiety, Arrhythmia, Atrial Fibrillation, Cardiomyopathy, Coronary Artery Diseas
== END 2020-11-26 20:53 | disposition home or self-care (01) ==
PROVIDERS: Emergency Provider Nurse Practitioner Family; PCP Internal Medicine Adolescent Medicine
DX: J20.9 Acute bronchitis, unspecified (principal); K21.9 Gastro-esophageal reflux disease without esophagitis; I25.10 Atherosclerotic heart disease of native coronary artery without angina pectoris; I48.91 Unspecified atrial fibrillation; I10 Essential (primary) hypertension; I25.2 Old myocardial infarction; E78.5 Hyperlipidemia, unspecified; Z79.899 Other long term (current) drug therapy
CPT/HCPCS: G0463; 71046; 99202

== ENCOUNTER → 2021-01-10 10:08 | Outpatient (CLI) | payer MEDICARE, SELFPAY ==
--- NOTE | 2021-01-10 10:10 | MR_ITS ---
PROCEDURE: MR LUMBAR SPINE WO CON CLINICAL INDICATION: COCCYGEAL PAIN, LUMBAGO Bilateral leg pain numbness and tingling COMPARISON: MR MR ABDOMEN WO/W CON from 06/23/2020 CR XR SACRUM COCCYX MIN 2V from 07/18/2020 TECHNIQUE: Standard multiplanar multiecho sequences are performed without contrast. 3-D MIP and myelographic images are also rendered and reviewed FINDINGS: This exam does not include the lower sacrum and coccyx. There is normal alignment. The spinal cord ends at the L1 level. T11-T12: Degenerative disc disease. T12-L1: Unremarkable. L1-L2: Unremarkable. L2-L3: Unremarkable. L3-L4: Unremarkable. L4-5: 3 mm anterolisthesis of L4 with mild concentric bulging disc along with facet and ligamentum hypertrophic change causing moderate to severe bilateral lateral recess narrowing with mild impingement upon the L5 nerve roots in the lateral recess region. There is transverse narrowing of the canal at 10 mm with mild bilateral foraminal narrowing. Small amount fluid is present in the facet joints with a small cystic collection along the posterior and inferior aspect of the left L4 facet consistent with a small synovial cyst at 13 mm projecting into the posterior paraspinal soft tissues. L5-S1: Minimal bulging disc along with facet and ligamentum hypertrophy with mild bilateral foraminal narrowing. No extruded herniated disc.. IMPRESSION: 1. L4-5: 3 mm anterolisthesis of L4 with mild concentric bulging disc along with facet and ligamentum hypertrophic change causing moderate to severe bilateral lateral recess narrowing with mild impingement upon the L5 nerve roots in the lateral recess region. There is transverse narrowing of the canal at 10 mm with mild bilateral foraminal narrowing. Small amount fluid is present in the facet joints with a small cystic collection along the posterior and inferior aspect of the left L4 facet consistent with a small synovial cyst at 13 mm projecting into the posterior paraspinal soft tissues. 2. L5-S1: Minimal bulging disc along with facet and ligamentum hypertrophy with mild bilateral foraminal narrowing. 3. No extruded herniated disc.. Dictated by: Navarro Ko MD 01/11/2021 11:53 Navarro Ko MD in [place] 01/11/2021 11:53
== END ==
PROVIDERS: PCP Internal Medicine Adolescent Medicine; Visit Provider Nurse Practitioner Family
DX: M54.41 Lumbago with sciatica, right side (principal); M53.3 Sacrococcygeal disorders, not elsewhere classified; G89.29 Other chronic pain
CPT/HCPCS: 72148; 76376

== ENCOUNTER 2021-01-20 03:56 | Emergency (ER) | payer MEDICARE, SELFPAY ==
[2021-01-20 03:58] VITALS: BP 150/90; PULSE 80; RESP 16; TEMP 37.3; O2SAT 98; BMI 33.9
[2021-01-20 04:32] LABS: Basophils % 0.6 % (0.1-2.0); Eosinophils # 0.2 K/mm3 (0.0-0.4); Eosinophils % 2.3 % (0.1-12.0); Hematocrit 44.7 % (42.0-52.0); Hemoglobin 14.5 g/dL (14.1-18.0); Lymphocytes # 0.7 K/mm3 (0.7-4.5); Lymphocytes % 8.6 % (10-50); Mean Corpuscular HGB Conc 32.4 g/dL (31.8-35.4); Mean Corpuscular Hemoglobin 30.3 pg (27.0-31.2); Mean Corpuscular Volume 93.5 fl (80-94); Mean Platelet Volume 7.6 fl (7.4-10.4); Monocytes # 0.5 K/mm3 (0.1-1.0); Monocytes % 6.1 % (1.7-9.3); Neutrophils # 6.5 K/mm3 (1.8-7.8); Neutrophils % 82.5 % (37.0-80.0); Platelet Count 281 K/mm3 (142-424); Red Blood Count 4.78 M/mm3 (4.60-6.20); Red Cell Distribution Width 14.6 % (11.5-17.5); White Blood Count 7.9 K/mm3 (4.8-10.8)
[2021-01-20 04:33] LABS: Alanine Aminotransferase 15 U/L (12-78); Albumin Level 3.9 g/dl (3.5-5.0); Albumin/Globulin Ratio 1.5 (1.1-1.8); Alkaline Phosphatase 63 U/L (38-126); Anion Gap 11.9 mEq/L (5-15); Aspartate Amino Transferase 25 U/L (17-59); Bilirubin,Total 0.5 mg/dl (0.2-1.3); Blood Urea Nitrogen 14 mg/dl (9-20); Calcium 9.1 mg/dl (8.4-10.2); Carbon Dioxide 24 mmol/L (22.0-30.0); Chloride 104 mmol/L (98-107); Creatinine Clearance Estimated 126 mL/min (50-200); Estimated Glomerular Filt Rate 76 ml/min (>60); GFR (African American) 92 ML/MIN (>60); Globulin 2.6 g/dL (1.3-3.2); Glucose 108 mg/dl (74-100); Potassium 3.9 mmoL/L (3.5-5.1); Sodium 136 mmol/L (136-145); Total Protein,Serum 6.5 g/dl (6.3-8.2)
--- NOTE | 2021-01-20 04:33 | HMH.EDDIZZ ---
ED Disposition Clinical Impression: Vertigo Disposition: Home, Self-Care Condition on Discharge: Good Instructions: Dizziness, Nonvertigo Additional Instructions: fluids and see pcp for follow up Referrals: Ryan Meraz MD [Primary Care Provider] - - Critical Care Critical Care Time: No Attestation: On 01/20/21, the high probability of a clinically significant, sudden or life threatening deterioration of the following system(s) required my full and direct attention, intervention and personal management. The time I documented below is in addition to time spent performing reported procedures but includes the following listed in this critical care notation. Medical Decision Making - Medical Records Medical records reviewed: Yes: I reviewed the patient's medical records. - Vijay Inquiry Pt receiving controlled substance: No Vital Signs: 01/20/21 03:58 01/20/21 06:20 Temperature 99.1 F Temperature Source Oral Pulse Rate [Right] 80 Respiratory Rate 16 Blood Pressure [Right Arm] 150/90 H Blood Pressure Mean [Right Arm] 110 Blood Pressure Source [Right Arm] Automatic Cuff Blood Pressure Position [Right Arm] Sitting 02 Sat by Pulse Oximetry 98 Oxygen Delivery Method Room Air Room Air - Lab Data Lab results reviewed: Yes: I reviewed the patient's lab results. Lab Results 01/20/21 04:10: WBC 7.9, RBC 4.78, Hgb 14.5, Hct 44.7, MCV 93.5, MCH 30.3, MCHC 32.4, RDW 14.6, Plt Count 281, MPV 7.6, Neut % (Auto) 82.5 H, Lymph % (Auto) 8.6 L, [place] % (Auto) 6.1, Eos % (Auto) 2.3, Baso % (Auto) 0.6, Neut # (Auto) 6.5, Lymph # (Auto) 0.7, [place] # (Auto) 0.5, Eos # (Auto) 0.2, Baso # (Auto) 0.0 01/20/21 04:10: Sodium 136, Potassium 3.9, Chloride 104, Carbon Dioxide 24, Anion Gap 11.9, BUN 14, Creatinine 1.00, Estimated Creat Clear 126, Estimated GFR 76, Est GFR ( Amer) 92, Glucose 108 H, Calcium 9.1, Total Bilirubin 0.5, AST 25, ALT 15, Alkaline Phosphatase 63, Total Protein 6.5, Albumin 3.9, Globulin 2.6, Albumin/Globulin Ratio 1.5 01/20/21 05:05: Urine Color Yellow, Urine Appearance Clear, Urine pH 6.0, Ur Specific [place] 1.015, Urine Protein Negative, Urine Glucose (UA) Negative, Urine Ketones Negative, Urine Blood Negative, Urine Nitrate Negative, Urine Bilirubin Negative, Urine Urobilinogen 0.2, Ur Leukocyte Esterase Negative, Urine WBC Occasional, Urine Bacteria Trace Result diagrams: 01/20/21 04:10 01/20/21 04:10 Orders (Tests/Meds): ED MEDICATIONS Generic Name Dose Route Start Last Admin Trade Name Freq PRN Reason Stop Dose Admin Sodium Chloride 1,000 mls @ 999 mls/hr 01/20/21 04:15 01/20/21 04:16 Sod Chlor 0.9% 1000ml Bag IV 01/20/21 05:15 999 mls/hr .Q1H1M ANA Administration Sodium Chloride 1,000 mls @ 999 mls/hr 01/20/21 05:15 01/20/21 05:29 Sod Chlor 0.9% 1000ml Bag IV 01/20/21 06:15 999 mls/hr .Q1H1M ANA Administration Discontinued Medications Generic Name Dose Route Start Last Admin Trade Name Freq PRN Reason Stop Dose Admin Acetaminophen 650 mg 01/20/21 05:29 01/20/21 05:30 Acetaminophen 325mg Tab PO 01/20/21 05:30 650 mg ONCE ONE Administration Medical Decision Narrative: has stable labs at this time Dizzy HPI - General Chief Complaint: Dizziness Stated Complaint: dizziness Time Seen by Provider: 01/20/21 04:10 Mode of Arrival: EMS Source of Information: Patient, EMS, Medical Record Limitations: No Limitations Description of Symptoms (Recalled from ER Triage Doc. by RN): Pt advises he had his 3rd covid vaccine today and then tonight he developed a headache, fever, and aches. Advises he just doesn't feel good and feeling dizzy - History of Present Illness HPI Narrative: feeling dizzy and had booster - no chest pain MD complaint: dizziness Onset (ago): day(s) Timing: awoke with symptoms History of similar episodes: No History of trauma: No Severity: moderate Associated symptoms: denies other symptoms - Related Data H
[2021-01-20 05:13] VITALS: BP 158/96; PULSE 88; O2SAT 96
[2021-01-20 05:17] LABS: Microscopic, Urine URINE MICROSCOPIC (MICROSCOPIC)
[2021-01-20 05:18] LABS: Appearance,Urine CLEAR (Clear); Bilirubin,Urine Negative (Negative); Blood, Urine Negative (Negative); Color,Urine YELLOW (Yellow); Glucose,Urine (UA) Negative (Negative); Ketones,Urine Negative (Negative); Leukocyte Esterase,Urine Negative (Negative); Nitrate,Urine Negative (Negative); Protein,Urine Negative (Negative); Specific Gravity, Urine 1.015 (1.005-1.030); Urobilinogen,Urine 0.2 EU/dl (0.2)
[2021-01-20 05:41] LABS: Bacteria,Urine Trace /lpf; WBC,Urine Occasional #/hpf (0-3)
[2021-01-20 06:15] VITALS: PULSE 83; O2SAT 96
[2021-01-20 06:40] VITALS: BP 126/89; PULSE 86; RESP 18; TEMP 37; O2SAT 97
[2021-01-20 06:46] VITALS: BP 126/89
--- NOTE | 2021-01-20 07:18 | PC.NURSE ---
Pt refused to take his d/c paperwork.
== END 2021-01-20 06:50 | disposition home or self-care (01) ==
PROVIDERS: Emergency Provider Emergency Medicine; PCP Internal Medicine Adolescent Medicine
DX: R42 Dizziness and giddiness (principal); T50.Z95A Adverse effect of other vaccines and biological substances, initial encounter; R50.9 Fever, unspecified; I48.91 Unspecified atrial fibrillation; I25.10 Atherosclerotic heart disease of native coronary artery without angina pectoris; I10 Essential (primary) hypertension; E78.5 Hyperlipidemia, unspecified; K21.9 Gastro-esophageal reflux disease without esophagitis; Z79.899 Other long term (current) drug therapy
CPT/HCPCS: 80053; 81001; 85025; 96365; 96366; 96375; 99283

== ENCOUNTER → 2021-02-01 10:56 | Outpatient (CLI) | payer MEDICARE, SELFPAY ==
--- NOTE | 2021-02-01 | CA_ITS ---
APPROVED REPORT Exam: Pharmacologic Technologist: Natalie Bhandari Ht: 6 ft 0 in Wt: 261 lbs BSA: 2.39 m2 HR: 56 bpm BP: 159/92 mmHg Indications: CAD Medical History Medications: Allopurinol,,,,, Pantoprazole,,,,, ClonAZEPAM,,,,, ProMETHAZINE,,,,, BenzONATATE,,,,, Nitroglycerin,,,,, RoSUVASTATIN,,,,, ColCHIcine,,,,, Apixaban,,,,, AmOXICILLIN,,,,, Stress Test Details Test: LEXISCAN HR Resting HR: 59 bpm Max Heart Rate (APMHR): 160 bpm Max HR Achieved: 78 bpm Target HR (85% APMHR): 136 bpm % of APMHR: 48 Recovery HR: 64 bpm BP Resting BP: 159.0/92.0 mmHg Max BP: 170.0/85.0 mmHg Recovery BP: 170.0/85.0 mmHg ECG Resting ECG: Sinus bradycardia, PVC, cannot rule out old septal WI, T wave abnormalities inferiorly. Clinical Exercise duration: 04:00 min Highest Stage Achieved: Exercise capacity: 1.0 METs Stress ECG Conclusion Symptoms: Shortness of air, lightheaded. No chest pain. Arrhythmias/Ectopy: Occasional PVC, Occasional Ventricular couplet. ST-T Changes: No significant changes. Conclusion: Unremarkable Lexiscan stress. Myoview images reported separately. Electronically signed by : Guillermo Luong MD 02/02/2021 10:52:01
--- NOTE | 2021-02-01 10:57 | NM_ITS ---
APPROVED REPORT Exam: Nuclear Stress Test Indication: syncope..cad Patient Location: Outpatient Stress Tech: Natalie Bhandari [place] Tech:Minna Madera JORDAN RT(R)(N) Ht: 6 ft 0 in Wt: 250 lbs HR: 56 bpm BP: 159/92 mmHg BSA: 2.34 m2 History: syncope..cad Procedure: Patient received a 0.4 mg of intravenous Lexiscan, resting heart rate 56 bpm, resting blood pressure 159/92 mmHg, with Lexiscan maximum heart rate achived was 54 bpm which is Less than 85 % of the maximum predicted heart rate and blood pressure was 170/85 mmHg. With Lexiscan, patient denied any complaint of chest pain. Electrocardiogram Resting electrocardiogram shows sinus rhythm, nonspecific ST-T changes, with Lexiscan there is less than 1.[address] segment depression noted from the baseline EKG. The EKG portion of the Lexiscan is nondiagnostic. Cardiac Stress and Resting SPECT Images: Cardiac Stress and Resting SPECT images were obtained using technetium 99m Myoview 31.9 mCi stress and 10.16 mCi at rest. Gated SPECT for analysis of segmental wall motion and calculation of the ejection fraction also done. Prone images were also obtained. Cardiac stress and resting SPECT images show a fixed defect involving the anterior apical, apical and posterolateral wall consistent with area of myocardial scarring without significant ariel-infarct ischemia. Computer derived ejection fraction is 39% with marked anterior apical and posterolateral wall hypokinesis, right ventricle is normal size and contractility. Conclusion: 1. The EKG portion of the Lexiscan is nondiagnostic 2. Scintigraphic evidence of myocardial scarring involving the anterior apical, apex and posterolateral wall suggestive of likely multivessel coronary artery disease. Computer derived ejection fraction of 39% with multiple segmental wall motion abnormality described above, right ventricle is normal size and contractility 3. Abnormal Lexiscan Myoview study. Electronically signed by : Guillermo Luong MD 02/02/2021 11:06:34
== END ==
PROVIDERS: PCP Internal Medicine Adolescent Medicine; Visit Provider Internal Medicine Cardiovascular Disease
DX: R07.9 Chest pain, unspecified (principal)
CPT/HCPCS: 78452; 93017; A9502; J2785

== ENCOUNTER → 2021-04-04 12:18 | Outpatient (CLI) | payer MEDICARE, SELFPAY ==
[2021-04-04 13:17] LABS: Basophils # 0.1 K/mm3 (0-0.2); Basophils % 1.3 % (0.1-2.0); Eosinophils # 0.2 K/mm3 (0.0-0.4); Eosinophils % 2.9 % (0.1-12.0); Hemoglobin 13.5 g/dL (14.1-18.0); Lymphocytes # 1.3 K/mm3 (0.7-4.5); Lymphocytes % 24.8 % (10-50); Mean Corpuscular HGB Conc 33.9 g/dL (31.8-35.4); Mean Corpuscular Volume 88.5 fl (80-94); Mean Platelet Volume 7.8 fl (7.4-10.4); Monocytes # 0.4 K/mm3 (0.1-1.0); Monocytes % 8.2 % (1.7-9.3); Neutrophils # 3.3 K/mm3 (1.8-7.8); Neutrophils % 62.8 % (37.0-80.0); Platelet Count 303 K/mm3 (142-424); Red Blood Count 4.52 M/mm3 (4.60-6.20); Red Cell Distribution Width 14.2 % (11.5-17.5); White Blood Count 5.2 K/mm3 (4.8-10.8)
[2021-04-04 14:04] LABS: Alanine Aminotransferase 13 U/L (12-78); Albumin/Globulin Ratio 1.6 (1.1-1.8); Alkaline Phosphatase 60 U/L (38-126); Anion Gap 7.3 mEq/L (5-15); Aspartate Amino Transferase 29 U/L (17-59); Bilirubin,Total 0.4 mg/dl (0.2-1.3); Blood Urea Nitrogen 15 mg/dl (9-20); Calcium 9.3 mg/dl (8.4-10.2); Carbon Dioxide 29 mmol/L (22.0-30.0); Chloride 105 mmol/L (98-107); Estimated Glomerular Filt Rate 68 ml/min (>60); GFR (African American) 82 ML/MIN (>60); Globulin 2.5 g/dL (1.3-3.2); Glucose 92 mg/dl (74-100); Potassium 4.3 mmoL/L (3.5-5.1); Sodium 137 mmol/L (136-145); Total Protein,Serum 6.5 g/dl (6.3-8.2)
[2021-04-04 14:05] LABS: Alanine Aminotransferase 14 U/L (12-78); Alkaline Phosphatase 61 U/L (38-126); Aspartate Amino Transferase 31 U/L (17-59); Bilirubin,Direct 0.2 mg/dl (0.0-0.4); Bilirubin,Indirect 0.2 mg/dL (0.0-0.9); Bilirubin,Total 0.4 mg/dl (0.2-1.3); Bilirubin,Unconjugated 0.2 mg/dL (0.0-1.1); Chol/HDL Ratio 2.6 (1-3.5); Cholesterol 119 mg/dl (140-200); HDL Cholesterol 46 mg/dl (40-60); Total Protein,Serum 6.6 g/dl (6.3-8.2); Triglycerides 147 mg/dl (30-150); VLDL Cholesterol 29 mg/dL (0-40)
[2021-04-04 14:17] LABS: Direct LDL Cholesterol 52.09 mg/dL (100-129)
== END ==
PROVIDERS: Physician Assistant; Visit Provider Internal Medicine Adolescent Medicine
DX: E78.2 Mixed hyperlipidemia (principal); I07.1 Rheumatic tricuspid insufficiency; I11.9 Hypertensive heart disease without heart failure; I25.10 Atherosclerotic heart disease of native coronary artery without angina pectoris; I25.5 Ischemic cardiomyopathy; I48.0 Paroxysmal atrial fibrillation; I49.3 Ventricular premature depolarization; K21.9 Gastro-esophageal reflux disease without esophagitis; R06.00 Dyspnea, unspecified; Z86.79 Personal history of other diseases of the circulatory system
CPT/HCPCS: 36415; 80053; 80061; 80076; 85025

== ENCOUNTER 2021-04-13 11:00 | Outpatient (RCR) | payer MEDICARE, SELFPAY ==
--- NOTE | 2021-01-24 15:37 | HMH.PTOPEV ---
PT Outpatient Evaluation Rehab PT Outpatient Evaluation Start: 01/24/21 14:43 Freq: Status: Active Protocol: Document 01/24/21 15:20 YULIANA (Rec: 01/24/21 15:37 YULIANA [id number]) Electronically Signed By Sergey Aguilar, PT 01/24/21 15:20 Outpatient Therapy Subjective History Subjective History Pt reports h/o chronic LBP for multiple years, however, reports severe exacerbation caused by slip/fall on ice, down steps in June. Pt reports landing directly on tailbone/low back. Recent MRI has revealed anterolisthesis at L3 on L4, with disc buldge at L3-4. Pt reports localized LBP, R>L side, radicular pain into RLE from hip/glut to calf mm. 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 PMH: cardiac ablation Chief Complaint Pain,Stiff,Clicks,Paresthesia, Weakness Symptom Type Ache,Sharp,Dull,Stabbing, Burning,Numbness,Tingling Symptoms Relieved By Rest/Positioning,Heat,Ice,OTC Meds,Prescription Meds Symptoms Aggravated By Sitting,Standing,Physical Activity,Walking,Lifting Prior Functional Limitations Lifting,Housework,Standing, Squatting,Walking Current Functional Limitations Lifting,Housework,Standing, Sitting,Walking Symptom Description Constant but Variable Level of pain today (0-10) 6 Pain scale - at its best (0-10) 3 Pain scale - at its worst (0-10) 10 Lumbopelvic Eval Posture Thoracic Spine Posture Standing Position Neutral Lumbar Spine Posture Standing Position Increased Lordosis Assistive device Assistive Devices None / NA Gait Observation General Gait Pattern Observation Antalgic Gait Palapation tenderness left lumbar spinal tenderness Yes: 3/4 paraspinal tenderness Yes: 3/4 buttock tenderness Yes: 3/4 Lumbar/Sacral Palpation Findings Tenderness,Trigger Point, Muscle Guarding Lumbar/Sacral Palpation Overall Comment coccyx 3/4 right lumbar spinal tenderness Yes: 1/4 paraspinal tenderness Yes: 2/4 buttock tenderness Yes: 1/4 Lumbar/Sacral Palpation Findings Tenderness Accessory Movement L-spine Vertebrae Accessory Movements [facility] [place] that Elicit Symptoms L2
--- NOTE | 2021-02-28 11:31 | HMH.RHREAS ---
Rehab Reassessment Rehab OP Re-assessment Start: 02/28/21 10:53 Freq: Status: Active Protocol: Document 02/28/21 11:26 YULIANA (Rec: 02/28/21 11:31 REDSUZIELIONEL [id number]) Electronically Signed By Sergey Aguilar, PT 02/28/21 11:26 Rehab Re-assessment Subjective Subjective Pt reports 3-6/10 back pain depending on activity on VAS, and feels 60% better overall since I eval. Objective Objective Notes AROM: L-SPINE FLX 0-90, EXT 0- 20, B SB 0-30 TTP: VELEVT. LUMBAR PARA 1/4, VELVET . GLUT MM 1/4, COCCYX 1-2/4 MMT: VELVET HIP FLX,ABD,ADD 4+-5/ 5, VELVET. KNEE EXT,FLX WFL GAIT: WFL LEVEL TERRAIN Assessment Progress Assessment Progressing as Expected Assessment Notes IMPROVED STRENGTH, ROM, AND TTP Patient goals met STG'S 04/09 LTG'S 11/07 Goals Not Met LTG'S 09/07 Plan Plan Pt to cont. w/skilled P.T. to make further improvements in lumbar AROM, strength, TTP, and gait to allow for optimal function Frequency of Therapy 2-3x/wk Duration of therapy 4-6wks Time and Billing Re-Eval Time 15 Re-Eval Billing Units 0 PHYSICIAN CERTIFICATION: I certify the specified therapy services for Dixon Montgomery are required, authorized, and reviewed every 30 days.
--- NOTE | 2021-03-28 15:13 | HMH.RHREAS ---
Rehab Reassessment Rehab OP Re-assessment Start: 02/28/21 10:53 Freq: Status: Active Protocol: Document 03/28/21 15:10 YULIANA (Rec: 03/28/21 15:13 YULIANA [id number]) Electronically Signed By Sergey Aguilar, PT 03/28/21 15:10 Rehab Re-assessment Subjective Subjective Pt reports 2-3/10 back pain depending on activity on VAS, 'and it's really only sore right here in the middle', and feels 75% better overall since I eval. Objective Objective Notes AROM: L-SPINE FLX 0-90, EXT 0- 26, B SB 0-35 TTP: VELVET. LUMBAR PARA 0/4, VELVET . GLUT MM 0-1/4, COCCYX 0-1/4 MMT: VELVET HIP FLX,ABD,ADD 4+-5/ 5, VELVET. KNEE EXT,FLX WFL GAIT: WFL LEVEL TERRAIN Assessment Progress Assessment Progressing as Expected Assessment Notes IMPROVED STRENGTH, ROM, AND TTP Patient goals met STG'S 04/09 LTG'S 01/08 Goals Not Met LTG'S 07/08 Plan Plan Pt to cont. w/skilled P.T. to make further improvements in lumbar AROM, strength, TTP, and gait to allow for optimal function Frequency of Therapy 1-2X/WK Duration of therapy 2-4WKS Time and Billing Re-Eval Time 15 Re-Eval Billing Units 0 PHYSICIAN CERTIFICATION: I certify the specified therapy services for Dixon Montgomery are required, authorized, and reviewed every 30 days.
== END 2021-04-13 11:05 | disposition home or self-care (01) ==
LOC: PT 11:00
PROVIDERS: PCP Internal Medicine Adolescent Medicine; Visit Provider Nurse Practitioner Family
DX: M54.41 Lumbago with sciatica, right side (principal)
CPT/HCPCS: 20561; 97010; 97012; 97014; 97035; 97110; 97140; 97163; 97164; G0283